=== PATIENT | female | born 1945 | race Caucasian/White ===

== ENCOUNTER 2017-01-11 23:41 | Emergency (ER) | payer MEDICARE, OTHER ==
[2017-01-12] MEDS ORDERED: Acetaminophen/HYDROcodone 325-5 MG Tab PO ONE
[2017-01-12] MEDS ORDERED: Take Home: Nitrofurantoin Monohydrate/Macrocrystalline 100 MG, 2 Cap Pack PO ONE (00:22)
[2017-01-12] MEDS ORDERED: Take Home: Acetaminophen/HYDROcodone 325-5 MG, 5 Tab Pack PO ONE (00:22)
[2017-01-12 01:11] VITALS: BP 174/84
--- NOTE | 2017-01-12 08:20 | ER ---
Date of Service: 01/11/2017 SUBJECTIVE: Yael presents to the emergency room with complaints of low back pain. She states that she got a new mattress topper and has been using that and noticed that her back has been causing her some discomfort. She states the discomfort is located in her low lumbar region and radiates around to the lateral and anterior aspects of her abdomen. She denies any specific fall or injury that could have exacerbated a chronic injury. She states she is not experiencing any saddle anesthesia or incontinence. No paresthesia into the posterior aspects of her lower extremities. PAST MEDICAL HISTORY: She denies any chest pain, shortness of breath, dysuria, blood in her urine, fever or chills. 1. Hypertension. 2. Allergies. 3. Dyslipidemia. MEDICATIONS: 1. Lipitor. 2. Toprol-XL. 3. Loratadine. 4. Hydralazine. 5. Xopenex. 6. Flovent. 7. Calcium. 8. Enteric-coated aspirin. 9. Tylenol. ALLERGIES: 1. Pollen. 2. MSG. 3. Mold. 4. Eggs. 5. Zinc. 6. Sulfa. 7. Red dye. 8. Prednisone. 9. Penicillin. 10.Peanut. 11.Nickel. 12.Lisinopril. 13.Latex. 14.Diphenhydramine. 15.Codeine. 16.Beef containing products. 17.Aspirin. REVIEW OF SYSTEMS: Again, denies any fever chills. No dysuria. No pyuria. No hematuria. Denies any saddle anesthesia or incontinence. PHYSICAL EXAMINATION: General: This is a 71-year-old female patient, no acute distress. Vital Signs: Blood pressure is 174/84, pulse rate 54, temperature is 36.2, respiratory rate is 16, O2 saturations 98%. Skin: Warm, pink, and dry. HEENT. Head is normocephalic, atraumatic. Eyes, PERRLA. Extraocular movements are intact. Mouth, oral mucosa is moist. Lungs: Clear to auscultation. Back: She does have some point tenderness and muscle spasm to the lumbar region. There is no masses noted. There is no swelling or ecchymosis to the area. No erythema or rash noted. She does have severe increasing discomfort with flexion and extension of the lumbar spine as well as lateral bending and palpation of the area. LABORATORY DATA: CBC was obtained. She did have small occult blood and small leukocyte esterase. ASSESSMENT: 1. Urinary tract infection. 2. Probable mechanical back pain. PLAN: The patient was started on Macrobid 100 mg twice daily for 10 days. Also, did start her on [place] 5/325 with instructions to take 1 every 4 hours as needed for pain or 1 every 4 hours as needed for pain. All questions were answered. MWK: 01/12/2017 04:13:02 MODL: 01/12/2017 04:33:14 /[id number]
== END 2017-01-12 00:40 | disposition home or self-care (01) ==
LOC: VM.ED 23:41 → SUPCPDRO 23:41 → VM.ED 01-12 00:40
DX: N39.0 Urinary tract infection, site not specified (principal); I10 Essential (primary) hypertension; Z88.2 Allergy status to sulfonamides; Z91.09 Other allergy status, other than to drugs and biological substances; Z91.012 Allergy to eggs
CPT/HCPCS: 81002; 99283; A9270

== ENCOUNTER 2017-05-21 05:55 | Emergency (ER) | payer MEDICARE, OTHER ==
[2017-05-21 05:59] VITALS: BP 179/100
[2017-05-21] MEDS ORDERED: methylPREDNISolone Sodium Succinate 125 MG/2 ML SDV IM ONE (06:10)
[2017-05-21] MEDS ORDERED: hydrOXYzine HCl 50 MG/ML SDV IM ONE (06:11)
--- NOTE | 2017-05-21 23:47 | ER ---
Date of Service: 05/21/2017 SUBJECTIVE: Yael presents to the emergency room with complaints of tongue swelling. She states that she has a longstanding history of food allergies and sensitivity and is a frequent utilizer of the emergency room when she developed angioedema. The patient is allergic to a lot of food diet and she did start the new medication she thinks that possibly there was a new dye in the capsule of the medication that caused the reaction. The patient states that she noticed some discomfort, swelling, and paresthesia to the left side of her tongue and lip. She is not experiencing any significant shortness of breath or lightheadedness. PAST MEDICAL HISTORY: 1. 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 2. Asthma. 3. GERD. 4. Chronic kidney disease. 5. Mitral regurgitation. 6. Dyslipidemia. 7. Coronary artery disease. 8. Severe hearing loss. 9. Vitamin B12 deficiency. 10.Iron deficiency anemia. 11.B12 deficiency. 12.Impaired fasting blood glucose. 13.Essential tremor. ALLERGIES: 1. Pollen. 2. MSG. 3. Mold. 4. Eggs. 5. Zinc. 6. Sulfa. 7. Red dye. 8. Penicillin. 9. Peanut. 10.Nickel. 11.Lisinopril. 12.Latex. 13.Diphenhydramine. 14.Aspirin. 15.Beef containing products. She also states that when she takes prednisone, she gets "excitable" but this of course is a side effect of the medication. MEDICATIONS: Please see nurse's note. REVIEW OF SYSTEMS: Denies any sore throat, fever, chills, weakness, lightheadedness, chest pain, or shortness of breath. PHYSICAL EXAMINATION: General: This is a 71-year-old female patient, who is in no acute distress. Vital Signs: Blood pressure initially 179/100, was rechecked and was found to be 168/70, pulse rate 73, respiratory rate 20, O2 saturations 97%. Skin: Warm, pink, and dry. HEENT: Head is normocephalic, atraumatic. Mouth; oral mucosa is moist. She does have some mild erythema and some edema to the lateral aspect of her left side of her tongue. She also does have some mild swelling to her lip as well. It is fairly superficial and consistent with previous episode of angioedema she has had in the past. No significant swelling to the hypopharynx. No stridor noted. Lungs: Clear to auscultation. No wheezing. Heart: Regular rate and rhythm. Abdomen: Soft, nontender. There is no hepatosplenomegaly noted. There is no masses noted. Extremities: Without edema. Neurologic: The patient is alert, oriented, answers all questions appropriately, is very hard of hearing, but is able to communicate without difficulty. EMERGENCY ROOM COURSE: The patient was given injection of Vistaril 50 mg IM and Solu-Medrol 125 mg IM. She did report feeling somewhat better at time of discharge. ASSESSMENT: Acute angioedema. PLAN: The patient will be discharged. She was given a Medrol Dosepak as this has been her long-standing regimen that has worked for her. We will have her follow up in the clinic in the next 7-10 days sooner if she develops any shortness of breath, chest pain, or other worrisome signs or symptoms. All questions were answered. MWK: 05/21/2017 22:57:12 MODL: 05/21/2017 23:37:15 /[id number]
== END 2017-05-21 06:44 | disposition home or self-care (01) ==
LOC: VM.ED 05:55
DX: T78.3XXA Angioneurotic edema, initial encounter (principal); J45.909 Unspecified asthma, uncomplicated; K21.9 Gastro-esophageal reflux disease without esophagitis; N18.9 Chronic kidney disease, unspecified; E78.5 Hyperlipidemia, unspecified; I25.10 Atherosclerotic heart disease of native coronary artery without angina pectoris; Z91.018 Allergy to other foods; Z91.012 Allergy to eggs; Z91.010 Allergy to peanuts; Z91.041 Radiographic dye allergy status; Z88.0 Allergy status to penicillin; Z88.2 Allergy status to sulfonamides; Z88.8 Allergy status to other drugs, medicaments and biological substances
CPT/HCPCS: 82962; 96372; 99283; J2930; J3410

== ENCOUNTER 2017-10-18 07:34 | Observation (INO) | payer MEDICARE, OTHER ==
[2017-10-18] MEDS ORDERED: Sodium Chloride 0.9% 10 ML Syringe FLUSH PRN (07:48)
[2017-10-18 09:01] LABS: CHLORIDE,CL 105 mmol/L (98-107); SODIUM,NA 143 mmol/L (136-145)
[2017-10-18] MEDS ORDERED: IRON 65 MG PO SCH (13:30)
[2017-10-18] MEDS ORDERED: FLU Vacc TS 2017-18 (65yr UP)/PF 180 MCG/0.5 ML Syringe IM ONE (14:00)
[2017-10-18] MEDS ORDERED: Loratadine 10 MG Tab PO PRN (14:00)
[2017-10-18] MEDS ORDERED: Albuterol 8 GM Inhaler INH PRN (14:16)
[2017-10-18] MEDS: Acetaminophen/HYDROcodone 325-5 MG Tab PO PRN ×2 (14:24→20:25)
[2017-10-18] MEDS: Nitrofurantoin Monohydrate/Macrocrystalline 100 MG Cap PO SCH ×2 (14:24→20:35)
[2017-10-18] MEDS: Miconazole 2% Top Powder 45 GM Container TOP SCH ×2 (14:24→20:41)
[2017-10-18] MEDS ORDERED: LEVALBUTEROL INH PRN (18:30)
[2017-10-18] MEDS: FLUTICASONE INH SCH (20:00)
[2017-10-18] MEDS: VILANTEROL INH SCH (20:00)
[2017-10-18] MEDS ORDERED: Formoterol/Mometasone 100-5 MCG 8.8 GM Inhaler IH SCH (20:00)
[2017-10-18] MEDS: atorvaSTATin 10 MG Tab PO SCH (20:00)
[2017-10-18] MEDS: ClonazePAM 0.5 MG Tab PO PRN (20:36)
[2017-10-18] MEDS: hydrALAZINE 10 MG Tab PO SCH (20:36)
[2017-10-18] MEDS: Metoprolol Tartrate 50 MG Tab PO SCH (20:38)
[2017-10-18] MEDS: Famotidine 20 MG Tab PO SCH (20:40)
--- NOTE | 2017-10-19 01:27 | HP ---
CHIEF COMPLAINT: Not able to walk and back pain. HISTORY OF PRESENT ILLNESS: This is a 72-year-old female. She was in the clinic on Thursday, the with numerous complaints tremor, sore throat, multiple somatic complaints, headache, body aches, back pain, chest pain, poor balance. Her exam and lab were largely unchanged per her primary care provider, Dr. Anthony Eng. Troponin was negative. Flu testing was negative. CT of the abdomen showed only a hiatal hernia. No kidney stones. She did have some mild hematuria, but no dysuria. Then today she had an incontinent episode of urine. She has burning. She came into the emergency room and was found to have a UTI with 20 to 30 wbc's. She states that Thursday she walked in, but this morning she was having several tremor episodes, but her daughter did not feel like they were seizures even though she was at home during these episodes she has witnessed them in the past. The patient states all her problems started on 08/27 when she went down to [place] and had an angiogram. She woke up while they were still finishing and getting the camera out of her groin and she is very claustrophobic, they had her keep down, so it sounds like she yelled some obscenities and they labeled her as a personality disorder, which has been very bothersome to her. Ever since that her back pain has been worse, but she has had back pain in the past and has had numerous ER visits. She actually saw Neurology last spring and they were not sure if this was Parkinson's, so she is supposed to follow up with them next spring. Otherwise, she is very claustrophobic, but is now scheduled for an MRI in [place]. She states her shaking started back 4 years ago when she had influenza, when she was given something through the IV and made her shaky which was Solu-Medrol, but the shakiness never went away. She does take hydrocodone for pain. She has taken Valium for panic attacks, but currently Klonopin is on her list. Otherwise, she has rash in both groin folds. She believes she is using some steroids on it. She also has a rash under her breast. She has nystatin on her home med list. In the ER, she was up to the commode with the assistance of the nurse. It was just felt that she was not safe to return home, although she does live with her daughter, but tells me she could not live independently. ALLERGIES: Include penicillin, codeine, latex, nuts, nystatin, albuterol. It should be be marked that penicillin was itching. Albuterol causes a tremor, Benadryl headaches, Flonase nosebleeds, lisinopril edema, nickel contact dermatitis, prednisone makes her very angry, sulfur unspecified, Tylenol edema, zinc allergy attack and hives. PAST SOCIAL HISTORY: Includes she has been and . 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 She had 7 children. She currently lives with her daughter. She is a nonsmoker. FAMILY HISTORY: Her mother is from cataracts and had cancer. Father had a heart attack. Brother with heart disease. Sister with what sounds like aortic dissection. Son with Parkinson's and diabetes. The daughter does not appear to have any chronic medical conditions, but does have some tendinitis. SURGICAL HISTORY: Surgically, she has had a coronary artery bypass surgery. She has had tubal ligation, exploratory laparotomy, colonoscopy, appendectomy. PAST MEDICAL HISTORY: Angioedema, recurrent, but tells me her allergies have been better. Chronic cough with reactive airway disease and asthma, GERD, coronary artery disease, CABG 10 years ago, iron deficiency anemia, chronic anxiety, essential hypertension, B12 deficiency, osteopenia, prediabetes, chronic renal insufficiency, mitral regurgitation, tremors Parkinson's versus essential tremor but also some rigidity and bradykinesia from the sound of things, hyperlipidemia, personality disorder, firm mixed belief per primary care, chronic fatigue, and bilateral carotid artery stenosis. Recent angiogram on 08/27/2017 shows about 65% on the left and 60% on the right. REVIEW OF SYSTEMS: General: Her weight over the past year appears to have been stable to maybe even up 7 pounds. HEENT: Otherwise, her HEENT no sore throat. Cardiac: No new chest pain. Her EKG was reviewed and was stable from her EKG in August. Respiratory: No new cough. No shortness of breath. : She has had dysuria. GI: She has had abdominal pain. Musculoskeletal: She has had back pain. Otherwise, all systems are reviewed and found to be negative unless otherwise stated. PHYSICAL EXAMINATION: Vital signs: Include a temperature of 98.3, pulse 70, blood pressure 152/72, respiratory rate 90, O2 95% on room air. Weight 84.8 kg. General: She is in no acute distress. Heart: Regular rate and rhythm. S1, S2 without murmur. Lungs: Sounds are clear to auscultation bilaterally without crackles or wheezes. Abdomen: Has positive bowel sounds. Soft and nontender. Extremities: Warm and dry, but trace edema to both ankles. Mental status: She is alert she is orientated x3. She recognizes me right away. Neurologic: She has resting tremor and intention tremor noted on exam. When she tries to move her arms, the tremor remains. It seems to be worse on the right hand. She has some bradykinesia with movements. Psychiatric: She did feel need to go over her story with all her past history, but I do feel it was appropriate to her current situation. When it was inappropriate when she talked about the personality disorder I did remind her and she seemed to be easily redirected. She did not say anything bad about her current providers in [place], but she express some dissatisfaction with Dr. Romo in [place] just because of how she has felt since the angiogram and then she tried to talk to his office and they would not let her. Otherwise, her skin folds were examined, and there is red area in both groins with some white film, but she has placed some powder in that area. Otherwise, she did have some redness underneath the breast, especially the right breast as well. She did have a scraping done by Dermatology on 10/01 which was actually negative for yeast that is why she was on the steroid. LABORATORY DATA: Otherwise, lab works today shows her to have a normal white count of 7.3, hemoglobin 11.9, compared to yesterday's hemoglobin, it was 11.7, she had platelets of 345. INR 1. Sodium 143, potassium 4.1, chloride 105, bicarb 29, BUN 18, creatinine 1.2, glucose 100, lactic 0.7, calcium 8.5, magnesium 1.9, bilirubin 0.4, AST 19, ALT 29, alkaline phosphatase 117. Troponin negative. CRP 0.5, BNP 393, albumin 3.3. UA; 20 to 30 wbc's, no rbc's, moderate leukocyte esterase. She does have an IV in place, but has not received any IV fluids. Her EF was 65% back in 05/2017. ASSESSMENT AND PLAN: 1. Acute UTI with dysuria, leukocytosis, and low back pain. We will start the patient on Macrobid as she has multiple other allergies twice daily for at least 5 days. 2. Impairment of gait with tremor, possibly underlying Parkinson's. At this point, she is not moving around enough to go home. Therefore, she is placed on observation and will have a PT assessment. 3. History of coronary artery disease, but no history of heart failure. At this point, though she is eating and drinking okay she is about to try lunch, I am going to hold off on any IV fluids. 4. Prediabetes. Blood sugar was acceptable. We will start Accu-Cheks if needed. 5. Groin irritation. I looked at the site of her angiogram that looks okay, even though she was negative for yeast a couple weeks ago certainly she could have some issues with that now. We will get her in the tub, clean her up and try some just a small amount of Desenex powder. 6. History of asthma. We will monitor for any exacerbations and keep her home medications and inhalers the same. 7. Hiatal hernia, chronic. Her abdominal CT otherwise did not show anything else yesterday. 8. Carotid artery stenosis, moderate, but stable. 9. Essential hypertension, under fair control. We will continue to monitor. The plan at this point, we will admit her to observation status. We will continue her home medications. We will get her up and moving and get PT to see her. Hopefully, she can go home with family in a couple of days. Otherwise, look at a self-pay swing or even residential, which she is not interested in, as she cannot afford it. She is a code level 1. Given observation stay and the fact she might be able to go home in 24 hours, I am going to hold off on DVT prophylaxis, but I will certainly order it if she remains under care here. NEETUA: 10/18/2017 13:23:15 MODL: 10/19/2017 01:07:53 /[id number]
--- NOTE | 2017-10-19 02:42 | EDM.PDOC ---
ED HPI GENERAL MEDICAL PROBLEM - General Chief Complaint: General Stated Complaint: ER VISIT Time Seen by Provider: 10/18/17 07:48 Source of Information: Reports: Patient History Limitations: Reports: No Limitations - History of Present Illness INITIAL COMMENTS - FREE TEXT/NARRATIVE: Pt. presents to ER with numerous complaints. Her primary complaint is that of weakness and tremor. Pt. has a presumptive diagnosis if Parkinson's disease and is scheduled to see neurology. She is also scheduled for an MRI. Pt. and had a prominent tremor for several years. Pt. states that she has difficulty with standing and walking, and had been unable to get up to the bathroom. Pt. denies any fever or chills. She states that she has pain to her L posteriolateral lower rib area which has been present since she underwent an angiogram in Aug. Pt. states that the discomfort was due to rough handling she endured while being positioned for the angiogram. Pt. also states that she is experiencing some dysuria. She states she had a negative UA several days ago. She also complains of fatigue, body aches and imbalance. Pt. states that she fell into a "soft chair" that she aimed for when she states she felt imbalance. Onset Date: 10/18/17 Duration: Chronic Location: Reports: Generalized Middle Back Pain Score (Numeric/FACES): 8 - Related Data Allergies Allergy/AdvReac Type Severity Reaction Status Date / Time aspirin Allergy Cannot Verified 10/18/17 07:58 Remember Beef Containing Products Allergy Cannot Verified 10/18/17 07:58 Remember codeine Allergy Hallucinati Verified 10/18/17 07:58 ons diphenhydramine HCl Allergy Cannot Verified 10/18/17 07:58 [From Benadryl] Remember Latex, Natural Rubber Allergy Rash Verified 10/18/17 07:58 lisinopril Allergy Edema Verified 10/18/17 07:58 nickel [Nickel] Allergy Rash Verified 10/18/17 07:58 peanut Allergy Cannot Verified 10/18/17 07:58 Remember Penicillins Allergy Cannot Verified 10/18/17 07:58 Remember prednisone Allergy Excitabilit Verified 10/18/17 07:58 y red dye Allergy Cannot Verified 10/18/17 07:58 Remember Sulfa (Sulfonamide Allergy Cannot Verified 10/18/17 07:58 Antibiotics) Remember zinc Allergy Hives Verified 10/18/17 07:58 molds Allergy Cannot Uncoded 12/31/17 07:58 Remember MSG Allergy Cannot Uncoded 10/18/17 07:58 Remember pollen Allergy Cannot Uncoded 10/18/17 07:58 Remember Home Meds: Home Meds Metoprolol Succinate [Toprol XL] 50 mg PO BID 10/15/13 [History] atorvaSTATin [Lipitor] 10 mg PO BEDTIME 10/15/13 [History] Aspirin [Aspirin EC] 325 mg PO DAILY 10/17/13 [History] Iron 65 mg PO Q48H 10/17/13 [History] Levalbuterol Tartrate [Xopenex HFA] 2 puff INH Q4H PRN 10/17/13 [History] Loratadine [Loratadine Allergy] 10 mg PO DAILY PRN 10/17/13 [History] Acetaminophen/HYDROcodone [Garrison 325-5 MG] 1 tab PO Q4H PRN 10/18/17 [History] ClonazePAM [KlonoPIN] 0.25 mg PO BID PRN 10/18/17 [History] Fluticasone/Vilanterol [Breo Ellipta 100-25 MCG Inhalation Kit] 1 puff IH DAILY PRN 10/18/17 [History] Non-Formulary Medication [NF Drug] 1 applic TOP BID 10/18/17 [History] Nystatin [Nystatin Crm] 1 applic TOP BID 10/18/17 [History] Ranitidine HCl [Zantac 75] 75 mg PO BEDTIME 10/18/17 [History] hydrALAZINE [Apresoline] 10 mg PO DAILY 10/18/17 [History] hydrALAZINE [Apresoline] 15 mg PO BEDTIME 10/18/17 [History] traMADol [Ultram] 50 mg PO BEDTIME PRN 10/18/17 [History] Past Medical History HEENT History: Reports: Cataract, Other (See Below) Other HEENT History: myopia. presbyopia. hearing loss Cardiovascular History: Reports: CAD, High Cholesterol, Hypertension, [place], Other (See Below) Other Cardiovascular History: angioedema. mitral regurgitation Respiratory History: Reports: Asthma, Other (See Below) Other Respiratory History: RAD Gastrointestinal History: Reports: GERD Genitourinary History: Reports: Other (See Below) Other Genitourinary History: chronic renal insufficiency TANK BOTT[employer]SEM[employer]ER History: Reports: Musculoskeletal History: Reports: Other (See Below) Other Musculoskeletal History: colposcopy with endo curette. tremor. osteopenia Neurological History: Reports: Parkinson's, Other (See Below) Other Neuro History: tremors. relates dx with parkinsons on 10/16 Psychiatric History: Reports: Anxiety, Other (See Below) Other Psychiatric History: personality disorder Endocrine/Metabolic History: Reports: Vitamin D Deficiency, Other (See Below) Other Endocrine/Metabolic History: B12 deficiency. prediabetes Hematologic History: Reports: Anemia, B12 Deficiency, Iron Deficiency - Past Surgical History Cardiovascular Surgical History: Reports: Coronary Artery Bypass GI Surgical History: Reports: Appendectomy, Colonoscopy Female Surgical History: Reports: Tubal Ligation Social & Family History - Family History Family Medical History: Noncontributory - Tobacco Use Smoking Status *Q: Never Smoker Used Tobacco, but Quit: No Second Hand Smoke Exposure: No - Recreational Drug Use Recreational Drug Use: No ED ROS GENERAL - Review of Systems Review Of Systems: See Below Constitutional: Reports: Fever, Chills, Malaise, Weakness HEENT: Reports: No Symptoms Respiratory: Reports: No Symptoms Cardiovascular: Reports: No Symptoms Endocrine: Reports: No Symptoms GI/Abdominal: Reports: No Symptoms : Reports: Dysuria Musculoskeletal: Reports: Back Pain, Muscle Stiffness Skin: Reports: No Symptoms Neurological: Reports: Tremors, Weakness Psychiatric: Reports: No Symptoms Hematologic/Lymphatic: Reports: No Symptoms Immunologic: Reports: No Symptoms ED EXAM, GENERAL - Physical Exam Exam: See Below Exam Limited By: No Limitations General Appearance: Alert, WD/WN, No Apparent Distress Ears: Normal External Exam, Normal Canal, Hearing Grossly Normal, Normal TMs Throat/Mouth: Normal Inspection, Normal Lips, Normal Teeth, Normal Gums, Normal Oropharynx, Normal Voice, No Airway Compromise Head: Atraumatic, Normocephalic Neck: Normal Inspection, Supple, Non-Tender, Full Range of Motion Respiratory/Chest: No Respiratory Distress, Lungs Clear, Normal Breath Sounds, No Accessory Muscle Use, Chest Non-Tender Cardiovascular: Normal Peripheral Pulses, Regular Rate, Rhythm, No Edema, No Gallop, No JVD, No Murmur, No Rub Peripheral Pulses: 3+: Radial (L), Radial (R) GI/Abdominal: Normal Bowel Sounds, Soft, Non-Tender, No Organomegaly, No Distention (Female) Exam: Deferred Rectal (Female) Exam: Deferred Back Exam: Normal Inspection. No: CVA Tenderness (R) Extremities: Normal Inspection, Non-Tender, No Pedal Edema, Normal Capillary Refill Neurological: Alert, Oriented, CN II-XII Intact, Normal Cognition, Normal Gait, Normal Reflexes, No Motor/Sensory Deficits Psychiatric: Normal Affect, Normal Mood Skin Exam: Warm, Dry, Pallor Lymphatic: No Adenopathy EKG INTERPRETATION Rhythm: NSR Course - Vital Signs Last Recorded V/S: Last Vital Signs Temp 36.2 C 10/19/17 01:47 Pulse 56 L 10/19/17 01:47 Resp 19 10/19/17 01:47 BP 159/77 H 10/19/17 01:47 Pulse Ox 95 10/19/17 01:47 - Orders/Labs/Meds Orders: Active Orders 24 hr Category Date Time Status Patient Status [ADT] Routine ADT 10/18/17 11:21 Active EKG Documentation Completion [RC] STAT Care 10/18/17 07:48 Ordered Chest 1V Frontal [CR] Stat Exams 10/18/17 08:05 Taken CULTURE BLOOD [BC] Stat Lab 10/18/17 08:12 Received CULTURE BLOOD [BC] Stat Lab 10/18/17 08:24 Received Sodium Chloride 0.9% [Saline Flush] Med 10/18/17 07:48 Active 10 ml FLUSH ASDIRECTED PRN Blood Culture x2 Reflex Set [OM.PC] Stat Oth 10/18/17 07:49 Ordered Peripheral IV Insertion Adult [OM.PC] Routine Oth 10/18/17 07:49 Ordered Medication Orders Hydrocodone Bitart/Acetaminophen (Garrison 325-5 Mg) 1 tab PO Q4H PRN PRN Reason: Pain Last Admin: 10/18/17 20:25 Dose: 1 tab Admin: 10/18/17 14:24 Dose: 1 tab Aspirin (Ecotrin) 325 mg PO DAILY FADUMO Atorvastatin Calcium (Lipitor) 10 mg PO BEDTIME FADUMO Last Admin: 10/18/17 20:00 Dose: 10 mg Clonazepam (Klonopin) 0.25 mg PO BID PRN PRN Reason: Anxiety Last Admin: 10/18/17 20:36 Dose: 0.25 mg Famotidine (Pepcid) 10 mg PO BEDTIME FADUMO Last Admin: 10/18/17 20:40 Dose: 10 mg Hydralazine HCl (Apresoline) 10 mg PO DAILY [facility] Hydralazine HCl (Apresoline) 15 mg PO BEDTIME [facility] Last Admin: 10/18/17 20:36 Dose: 15 mg Loratadine (Claritin) 10 mg PO DAILY PRN PRN Reason: ALLERGIES Metoprolol Tartrate (Lopressor) 50 mg PO BID [facility] Last Admin: 10/18/17 20:38 Dose: 50 mg Miconazole (Desenex 2%) 0 gm TOP BID [facility] Last Admin: 10/18/17 20:41 Dose: 1 applic Admin: 10/18/17 14:24 Dose: 1 applic Nitrofurantoin Macrocrystals (Macrobid) 100 mg PO BID [facility] Last Admin: 10/18/17 20:35 Dose: 100 mg Admin: 10/18/17 14:24 Dose: 100 mg Levalbuterol ( Xopenex) Hfa Aer Own Med 0 each INH Q4H PRN PRN Reason: Shortness of Breath Fluticasone/Vilanterol (Breo Ellipta) 100 Mcg/25 Mcg Own Med 0 each INH DAILY [facility] Last Admin: 10/18/17 20:00 Dose: Not Given Sodium Chloride (Saline Flush) 10 ml FLUSH ASDIRECTED PRN PRN Reason: Keep Vein Open Labs: Laboratory Tests 10/18/17 10/18/17 10/18/17 Range/Units 08:12 08:12 08:12 WBC 7.3 (4.0-10.0) x10^3/uL RBC 4.31 (4.00-5.50) x10^6/uL Hgb 11.9 L (12.0-16.0) g/dL Hct 38.8 (33.0-47.0) % MCV 90.0 (78.0-93.0) fL MCH 27.6 (26.0-32.0) pg MCHC 30.7 L (32.0-36.0) g/dL RDW Coeff of Patrick 16.4 H (10.0-15.0) % Plt Count 345 (130-400) x10^3/uL Neut % (Auto) 81.7 H (50.0-80.0) % Lymph % (Auto) 11.3 L (25.0-50.0) % [place] % (Auto) 5.8 (2.0-11.0) % Eos % (Auto) 0.8 (0.0-4.0) % Baso % (Auto) 0.4 (0.2-1.2) % PT 10.4 (9.8-11.8) SEC INR 1.0 L (2.0-3.5) Sodium 143 (136-145) mmol/L Potassium 4.1 (3.5-5.1) mmol/L Chloride 105 (98-107) mmol/L Carbon Dioxide 29 (21-32) mmol/L BUN 18 (7-18) mg/dL Creatinine 1.2 H (0.55-1.02) mg/dL Est Cr Clr Drug Dosing 34.02 mL/min Estimated GFR (MDRD) 44 Glucose 100 (74-106) mg/dL Lactic Acid (0.4-2.0) mmol/L Calcium 8.5 (8.5-10.1) mg/dL Corrected Calcium 9.06 (8.5-10.1) mg/dL Magnesium 1.9 (1.8-2.4) mg/dL Total Bilirubin 0.4 (0.2-1.0) mg/dL AST 19 (15-37) U/L ALT 29 (14-59) U/L Alkaline Phosphatase 117 H (46-116) U/L Troponin I < 0.017 (<=0.056) ng/mL C-Reactive Protein 0.5 (<=0.9) mg/dL NT-Pro-B Natriuret Pep 393 H (<=125) pg/mL Total Protein 7.2 (6.4-8.2) g/dL Albumin 3.3 L (3.4-5.0) g/dL Globulin 3.9 Albumin/Globulin Ratio 0.85 TSH, Ultra Sensitive 1.683 (0.358-3.74) uIU/mL Urine Color (YELLOW) Urine Appearance (CLEAR) Urine pH (5.0-8.0) Ur Specific [place] Urine Protein (NEGATIVE) mg/dL Urine Glucose (UA) (NEGATIVE) mg/dL Urine Ketones (NEGATIVE) mg/dL Urine Occult Blood (NEGATIVE) Urine Nitrite (NEGATIVE) Urine Bilirubin (NEGATIVE) Urine Urobilinogen (0.2) EU/dL Ur Leukocyte Esterase (NEGATIVE) Urine RBC (NOT SEEN) /HPF Urine WBC (NOT SEEN) /HPF Ur Squamous Epith Cells (NEGATIVE) /HPF Urine Bacteria (NEGATIVE) /HPF Urine Mucus (NEGATIVE) /LPF 10/18/17 10/18/17 Range/Units 08:12 09:25 WBC (4.0-10.0) x10^3/uL RBC (4.00-5.50) x10^6/uL Hgb (12.0-16.0) g/dL Hct (33.0-47.0) % MCV (78.0-93.0) fL MCH (26.0-32.0) pg MCHC (32.0-36.0) g/dL RDW Coeff of Patrick (10.0-15.0) % Plt Count (130-400) x10^3/uL Neut % (Auto) (50.0-80.0) % Lymph % (Auto) (25.0-50.0) % [place] % (Auto) (2.0-11.0) % Eos % (Auto) (0.0-4.0) % Baso % (Auto) (0.2-1.2) % PT (9.8-11.8) SEC INR (2.0-3.5) Sodium (136-145) mmol/L Potassium (3.5-5.1) mmol/L Chloride (98-107) mmol/L Carbon Dioxide (21-32) mmol/L BUN (7-18) mg/dL Creatinine (0.55-1.02) mg/dL Est Cr Clr Drug Dosing mL/min Estimated GFR (MDRD) Glucose (74-106) mg/dL Lactic Acid 0.7 (0.4-2.0) mmol/L Calcium (8.5-10.1) mg/dL Corrected Calcium (8.5-10.1) mg/dL Magnesium (1.8-2.4) mg/dL Total Bilirubin (0.2-1.0) mg/dL AST (15-37) U/L ALT (14-59) U/L Alkaline Phosphatase (46-116) U/L Troponin I (<=0.056) ng/mL C-Reactive Protein (<=0.9) mg/dL NT-Pro-B Natriuret Pep (<=125) pg/mL Total Protein (6.4-8.2) g/dL Albumin (3.4-5.0) g/dL Globulin Albumin/Globulin Ratio TSH, Ultra Sensitive (0.358-3.74) uIU/mL Urine Color Yellow (YELLOW) Urine Appearance Cloudy H (CLEAR) Urine pH 6.0 (5.0-8.0) Ur Specific [place] 1.020 Urine Protein 30 H (NEGATIVE) mg/dL Urine Glucose (UA) Negative (NEGATIVE) mg/dL Urine Ketones Negative (NEGATIVE) mg/dL Urine Occult Blood Moderate H (NEGATIVE) Urine Nitrite Negative (NEGATIVE) Urine Bilirubin Negative (NEGATIVE) Urine Urobilinogen 0.2 (0.2) EU/dL Ur Leukocyte Esterase Moderate H (NEGATIVE) Urine RBC 0-5 (NOT SEEN) /HPF Urine WBC 20-30 H (NOT SEEN) /HPF Ur Squamous Epith Cells Many H (NEGATIVE) /HPF Urine Bacteria Few H (NEGATIVE) /HPF Urine Mucus Not seen (NEGATIVE) /LPF Meds: Medications Generic Name Dose Route Start Last Admin Trade Name Freq PRN Reason Stop Dose Admin Hydrocodone Bitart/Acetaminophen 1 tab 10/18/17 13:22 10/18/17 20:25 Garrison 325-5 Mg PO 1 tab Q4H PRN Administration Pain Aspirin 325 mg 10/19/17 08:00 Ecotrin PO DAILY FADUMO Atorvastatin Calcium 10 mg 10/18/17 20:00 10/18/17 20:00 Lipitor PO 10 mg BEDTIME FADUMO Administration Clonazepam 0.25 mg 10/18/17 13:22 10/18/17 20:36 Klonopin PO 0.25 mg BID PRN Administration Anxiety Famotidine 10 mg 10/18/17 20:00 10/18/17 20:40 Pepcid PO 10 mg BEDTIME FADUMO Administration Hydralazine HCl 10 mg 10/19/17 08:00 Apresoline PO DAILY FADUMO Hydralazine HCl 15 mg 10/18/17 20:00 10/18/17 20:36 Apresoline PO 15 mg BEDTIME FADUMO Administration Loratadine 10 mg 10/18/17 14:00 Claritin PO DAILY PRN ALLERGIES Metoprolol Tartrate 50 mg 10/18/17 20:00 10/18/17 20:38 Lopressor PO 50 mg BID FADUMO Administration Miconazole 0 gm 10/18/17 12:30 10/18/17 20:41 Desenex 2% TOP 1 applic BID FADUMO Administration Nitrofurantoin Macrocrystals 100 mg 10/18/17 12:30 10/18/17 20:35 Macrobid PO 100 mg BID FADUMO Administration Levalbuterol ( 0 each 10/18/17 18:30 Xopenex) Hfa Aer INH Own Med Q4H PRN Shortness of Breath Fluticasone/ 0 each 10/18/17 20:15 10/18/17 20:00 Vilanterol (Breo INH Not Given Ellipta) 100 Mcg/25 DAILY FADUMO Mcg Own Med Sodium Chloride 10 ml 10/18/17 07:48 Saline Flush FLUSH ASDIRECTED PRN Keep Vein Open Discontinued Medications Generic Name Dose Route Start Last Admin Trade Name Freq PRN Reason Stop Dose Admin Albuterol 0 gm 10/18/17 14:16 Ventolin Hfa INH Q4H PRN Shortness of Breath Influenza Virus Vaccine 1 each 10/18/17 13:03 Pharmacy To Dose - Influenza Vaccine IM 10/18/17 13:04 ONETIME ONE Influenza Virus Vaccine 180 mcg 10/18/17 14:00 10/18/17 20:41 Fluzone High-Dose 2017-18 IM 10/18/17 14:01 Not Given .ONCE ONE Mometasone Furoate/Formoterol Fumar 2 puff 10/18/17 20:00 10/18/17 20:30 Dulera 100-5 Mcg IH Not Given BID [facility] Non-Formulary Medication 65 mg 10/18/17 13:30 10/18/17 15:39 Iron PO Not Given Q48H [facility] Departure - Departure Time of Disposition: 11:50 Disposition: Admitted As Inpatient 64 Clinical Impression: UTI (urinary tract infection) - Discharge Information - My Orders Last 24 Hours: My Active Orders 10/18/17 07:48 EKG Documentation Completion [RC] STAT Sodium Chloride 0.9% [Saline Flush] 10 ml FLUSH ASDIRECTED PRN 10/18/17 07:49 Blood Culture x2 Reflex Set [OM.PC] Stat Peripheral IV Insertion Adult [OM.PC] Routine 10/18/17 08:05 Chest 1V Frontal [CR] Stat 10/18/17 08:12 CULTURE BLOOD [BC] Stat 10/18/17 08:24 CULTURE BLOOD [BC] Stat 10/18/17 11:21 Patient Status [ADT] Routine - Assessment/Plan Last 24 Hours: My Active Orders 10/18/17 07:48 EKG Documentation Completion [RC] STAT Sodium Chloride 0.9% [Saline Flush] 10 ml FLUSH ASDIRECTED PRN 10/18/17 07:49 Blood Culture x2 Reflex Set [OM.PC] Stat Peripheral IV Insertion Adult [OM.PC] Routine 10/18/17 08:05 Chest 1V Frontal [CR] Stat 10/18/17 08:12 CULTURE BLOOD [BC] Stat 10/18/17 08:24 CULTURE BLOOD [BC] Stat 10/18/17 11:21 Patient Status [ADT] Routine
[2017-10-19] MEDS: Acetaminophen/HYDROcodone 325-5 MG Tab PO PRN ×4 (05:21→19:05)
[2017-10-19] MEDS: Metoprolol Tartrate 50 MG Tab PO SCH ×2 (07:45→19:06)
[2017-10-19] MEDS: hydrALAZINE 10 MG Tab PO SCH ×2 (07:45→19:04)
[2017-10-19] MEDS: Miconazole 2% Top Powder 45 GM Container TOP SCH ×2 (07:46→19:07)
[2017-10-19] MEDS: Aspirin 325 MG Tab.EC PO SCH (07:46)
[2017-10-19] MEDS: Nitrofurantoin Monohydrate/Macrocrystalline 100 MG Cap PO SCH ×2 (07:46→19:06)
[2017-10-19] MEDS: FLUTICASONE INH SCH (07:47)
[2017-10-19] MEDS: VILANTEROL INH SCH (07:47)
[2017-10-19] MEDS: ClonazePAM 0.5 MG Tab PO PRN ×2 (11:47→23:59)
--- NOTE | 2017-10-19 11:47 | PN ---
Progress Note for APRIL PUENTES Date: 10/19/2017 Room #: .205 HISTORY: This is hospital observation day #2 on a 72-year-old admitted with a UTI, likely has underlying Parkinson's. She has impaired gait. She did well with aids this morning, getting up, walking to the shower, but she states she is just not comfortable to go home. She has a cane but does not really know how to use it. She would like to see if she qualifies for some therapy. She has been on Macrobid, day #2. Urine culture is pending. She is still going frequently, but denies any dysuria. She also has back pain which is improved with hydrocodone. She has carried a history of swelling from Tylenol in the past. Please note, the patient was in on 08/30 for back pain, ever since her angiogram; then on 09/10, when she got hydrocodone; then again had a visit on 09/15 for dysuria, was treated with Cipro for 3 days, which did help and then her symptoms came back the day after stopping and then again on 09/17 for back pain. She does also have a hiatal hernia, which she would like a referral for as she can hardly eat anything and then her stomach bothers her. PHYSICAL EXAMINATION: Vital Signs: Otherwise, objectively today she is afebrile 98, pulse 57, blood pressure 150/68, respiratory rate 20, O2 100% on room air. General: She is in no acute distress. Heart: Regular rate and rhythm with murmur. Lungs: Sounds are clear to auscultation bilaterally without crackles or wheezes. Skin: She does continue to have a red area under the right breast into the right axillary area. There are no open sores. Overall, I feel her skin exam is improving. Extremities: Her feet are examined. There is just trace edema. There is no redness today noted to that left 3rd toe. We will do an Accu-Chek, done this morning was 109. The patient was feeling shaky. ASSESSMENT AND PLAN: 1. Generalized weakness in the setting of a urinary tract infection with likely underlying Parkinson's resulting in gait impairment. On observation status, day #2, on Macrobid. 2. Tremor and impaired gait. We will have PT assess her. She has a neurology followup in a couple weeks. 3. History of coronary artery disease, stable without chest pain. 4. Hiatal hernia. Patient is requesting a referral for possible surgery. 5. Pre-diabetes. We will do t.i.d. Accu-Cheks. 6. Groin and breast irritation, possibly yeast. She is doing well on Desenex. 7. History of asthma, stable without exacerbation. 8. Carotid artery stenosis, moderate and stable. 9. Essential hypertension with mildly elevated blood pressures. PLAN: At this point, patient will continue on observation. We will put support stockings in place for leg swelling. Discussed changing her hydrocodone with Tylenol to something else, but she prefers to stay with the same. Her pain is in her low back sacral area on palpation. I do not see any indication for x- rays. No lab work is due. criminal justice social worker will be involved tomorrow as well as PT and OT for assessments. The patient seems agreeable to that plan. She will continue under my care in the hospital. I will update her primary care, Dr. Anthony Eng. For DVT prophylaxis, she is up and ambulating. We have the support stockings now in place. MKA: 10/19/2017 09:22:19 MODL: 10/19/2017 11:45:52 /[id number]
[2017-10-19] MEDS: Carbidopa/Levodopa 10-100 MG Tab PO SCH ×2 (14:41→19:04)
[2017-10-19] MEDS: Famotidine 20 MG Tab PO SCH (19:05)
[2017-10-19] MEDS: atorvaSTATin 10 MG Tab PO SCH (19:06)
[2017-10-20] MEDS: Acetaminophen/HYDROcodone 325-5 MG Tab PO PRN (08:03)
[2017-10-20] MEDS: Nitrofurantoin Monohydrate/Macrocrystalline 100 MG Cap PO SCH (08:04)
[2017-10-20] MEDS: Metoprolol Tartrate 50 MG Tab PO SCH (08:05)
[2017-10-20] MEDS: hydrALAZINE 10 MG Tab PO SCH (08:06)
[2017-10-20] MEDS: Aspirin 325 MG Tab.EC PO SCH (08:06)
[2017-10-20] MEDS: Carbidopa/Levodopa 10-100 MG Tab PO SCH ×2 (08:07→11:58)
[2017-10-20] MEDS: Miconazole 2% Top Powder 45 GM Container TOP SCH (08:09)
[2017-10-20] MEDS: ClonazePAM 0.5 MG Tab PO PRN (08:25)
[2017-10-20] MEDS: FLUTICASONE INH SCH (08:27)
[2017-10-20] MEDS: VILANTEROL INH SCH (08:27)
[2017-10-20 14:31] VITALS: BP 136/56
--- NOTE | 2017-10-21 01:08 | DISCH ---
PRIMARY DISCHARGE DIAGNOSES: 1. Urinary tract infection; so far, culture showing no growth. Symptoms were dysuria and incontinence. 2. Generalized weakness in the setting of UTI and possibly underlying Parkinson's disease with gait impairment, working with PT near her baseline, but refusing to go home and requesting to stay for further therapy. 3. Tremor and impaired gait. Outpatient Neurology visit scheduled in a few weeks. 4. History of coronary artery disease, stable without chest pain. 5. Hiatal hernia. Referral placed to surgery regarding that. Symptoms include chest pain and fullness after eating. Prediabetes with well- controlled blood sugars on Accu-Cheks. The highest was 132. 6. Groin and breast irritation, improving with Desenex. 7. History of asthma, stable without exacerbation. 8. Moderate carotid artery stenosis, stable. Her symptoms started after her angiogram on 08/27/2017 with more back pain and feeling worse. 9. Right hip pain and low back pain. Pain is more in the buttock. I think this is related more to lumbar radiculopathy. She has had a CT scan of her low back over the last month through the ER. 10.Essential hypertension with mildly elevated blood pressures. REASON FOR ADMISSION: On the date of admission, this 72-year-old female came into the emergency room. She has been having problems with her bladder ever since she had an angiogram and they tried doing catheterization back in August. She was actually in the clinic Thursday and her test was negative for UTI. She did have a CT, which was negative for kidney stones. The CT did show her hiatal hernia, which has been giving her some chest discomfort on and off. Troponins were checked in the clinic and through the ER. All lab work was normal and stable. She did have 20 to 30 wbcs on her UA. She was started on Macrobid, which she is tolerating. She had received Cipro in the last month for a UTI as well, which did help her symptoms. Otherwise, she was up, she was working with therapy, she was making improvements transferring to the bathroom. Overall improving, but not feeling like she was stable for discharge. Therefore, Social Work did discuss with her as she did not have a qualifying stay as she was only on observation and she was willing to stay under self-pay swing. The patient was also bathed while she was here. Her daughter became quite angry and tearful when talking about seeing a Twist Tester because she said she does not want her to go in the senior living or assisted living, but the daughter does work 2 jobs, so was not available horse race timer to care for her. Otherwise, the patient herself was having some slight cough. Chest x-ray done on the was not showing any signs of pneumonia. She was not having any fevers. Overall, she had a stable stay, she was just receiving the oral Macrobid, she was initiated on Sinemet, which she had tried only once as an outpatient, but it gave her nightmares. PHYSICAL EXAMINATION: Vital Signs: Discharge vitals include a temperature 98, pulse 58, blood pressure 132/68, respiratory rate 16, and O2 98% on room air. General: She is in no acute distress. Heart: Regular rate and rhythm with murmur. Lungs: Sounds are clear to auscultation bilaterally without crackles or wheezes. Extremities: Warm and dry. No edema. Mental Status: She is alert and orientated x3. DISCHARGE PLANS AND INSTRUCTION: She is going over to swing bed. I am going to decrease her Accu-Cheks to just once daily. We will have her up and working with PT and OT. I anticipate that she will be stable for discharge by the end of the week to home with Home Health. Twist Tester will continue to be involved. VANIA: 10/20/2017 16:28:32 MODL: 10/21/2017 00:21:50 /[id number]
== END 2017-10-20 15:00 | disposition swing bed (61) ==
LOC: VM.ED 07:34 → VM.MS 11:32
PROVIDERS: ADMIT Internal Medicine; ATTEND Family Medicine
DX: N39.0 Urinary tract infection, site not specified (principal); R53.1 Weakness; R25.1 Tremor, unspecified; R26.9 Unspecified abnormalities of gait and mobility; K44.9 Diaphragmatic hernia without obstruction or gangrene; I65.29 Occlusion and stenosis of unspecified carotid artery; I10 Essential (primary) hypertension; Z86.79 Personal history of other diseases of the circulatory system; Z87.09 Personal history of other diseases of the respiratory system; Z88.0 Allergy status to penicillin; Z91.040 Latex allergy status; Z88.8 Allergy status to other drugs, medicaments and biological substances; Z95.1 Presence of aortocoronary bypass graft; Z98.51 Tubal ligation status; Z90.49 Acquired absence of other specified parts of digestive tract; Z91.010 Allergy to peanuts; Z91.041 Radiographic dye allergy status; Z88.2 Allergy status to sulfonamides; Z91.018 Allergy to other foods
CPT/HCPCS: 36415; 71010; 80053; 81001; 82962; 83605; 83735; 83880; 84443; 84484; 85025; 85610; 86140; 87040; 87086; 93005; 97116; 97165; 99285; A9270; G0378; 99283-GF

== ENCOUNTER 2017-10-20 15:10 | Inpatient (IN) | payer SELFPAY ==
[2017-10-20] MEDS ORDERED: Loratadine 10 MG Tab PO PRN (15:23)
[2017-10-20] MEDS ORDERED: LEVALBUTEROL INH PRN (15:23)
[2017-10-20] MEDS: HYDRALAZINE 10 MG PO SCH (20:39)
[2017-10-20] MEDS: Miconazole 2% Top Powder 45 GM Container TOP SCH (20:41)
[2017-10-20] MEDS: atorvaSTATin 10 MG Tab **OWN MED PO SCH (20:41)
[2017-10-20] MEDS: Metoprolol Tartrate 25 MG Tab **OWN MED PO SCH (20:42)
[2017-10-20] MEDS: Famotidine 20 MG Tab PO SCH (21:14)
[2017-10-20] MEDS: Nitrofurantoin Monohydrate/Macrocrystalline 100 MG Cap PO SCH (21:14)
[2017-10-20] MEDS: Acetaminophen/HYDROcodone 325-5 MG Tab **OWN MED PO PRN (21:16)
[2017-10-20] MEDS: ClonazePAM 0.5 MG Tab PO PRN (21:47)
[2017-10-20] MEDS ORDERED: FLU Vacc TS 2017-18 (65yr UP)/PF 180 MCG/0.5 ML Syringe IM ONE (22:30)
[2017-10-21] MEDS ORDERED: FLUTICASONE INH SCH (08:00)
[2017-10-21] MEDS ORDERED: VILANTEROL INH SCH (08:00)
[2017-10-21] MEDS: Nitrofurantoin Monohydrate/Macrocrystalline 100 MG Cap PO SCH ×2 (08:27→20:12)
[2017-10-21] MEDS: Aspirin 325 MG Tab.EC PO SCH (08:28)
[2017-10-21] MEDS: Metoprolol Tartrate 25 MG Tab **OWN MED PO SCH ×2 (08:28→20:12)
[2017-10-21] MEDS: HYDRALAZINE 10 MG PO SCH ×2 (08:29→20:10)
[2017-10-21] MEDS ORDERED: XOPENEX INH PRN (08:41)
[2017-10-21] MEDS ORDERED: CARBIDOPA PO SCH (12:00)
[2017-10-21] MEDS ORDERED: LEVODOPA PO SCH (12:00)
[2017-10-21] MEDS: Miconazole 2% Top Powder 45 GM Container TOP SCH ×2 (12:09→20:10)
[2017-10-21] MEDS: LEVODOPA PO SCH (17:59)
[2017-10-21] MEDS: CARBIDOPA PO SCH (17:59)
[2017-10-21] MEDS: atorvaSTATin 10 MG Tab **OWN MED PO SCH (20:11)
[2017-10-21] MEDS: Famotidine 20 MG Tab PO SCH (20:13)
[2017-10-21] MEDS: Acetaminophen/HYDROcodone 325-5 MG Tab **OWN MED PO PRN (20:14)
[2017-10-22] MEDS: Acetaminophen/HYDROcodone 325-5 MG Tab **OWN MED PO PRN (03:15)
[2017-10-22] MEDS: ClonazePAM 0.5 MG Tab PO PRN (03:16)
[2017-10-22 06:01] VITALS: BP 162/89
[2017-10-22] MEDS ORDERED: BREO ELLIPTA INH SCH (08:00)
[2017-10-22] MEDS: Aspirin 325 MG Tab.EC PO SCH (08:04)
[2017-10-22] MEDS: Nitrofurantoin Monohydrate/Macrocrystalline 100 MG Cap PO SCH (08:04)
[2017-10-22] MEDS: HYDRALAZINE 10 MG PO SCH (08:05)
[2017-10-22] MEDS: LEVODOPA PO SCH ×2 (08:05→12:21)
[2017-10-22] MEDS: CARBIDOPA PO SCH ×2 (08:05→12:21)
[2017-10-22] MEDS: Metoprolol Tartrate 25 MG Tab **OWN MED PO SCH (08:07)
[2017-10-22] MEDS: Miconazole 2% Top Powder 45 GM Container TOP SCH (08:10)
[2017-10-22] MEDS ORDERED: Magnesium Hydroxide 400 MG/5 ML Susp 30 ML Cup PO ONE (09:15)
--- NOTE | 2017-10-23 00:31 | DISCH ---
PRIMARY DISCHARGE DIAGNOSES: 1. Urinary tract infection. Final urine culture was mixed zana. She did complete 4-1/2 days of Macrobid while she was here. No antibiotics on discharge as she completed therapy and culture was negative. Blood culture was also negative. 2. Impaired gait, likely due to underlying Parkinson's, initiated on Sinemet tolerating 10 mg 3 times a day during her stay. 3. Right hip and back pain, probably some lumbar radiculopathy, but mild-to- moderate arthritis noted in the right hip on recent CT scan done outpatient to rule out kidney stones. 4. History of coronary artery disease, stable without chest pain, she has had bypass surgery many years ago. 5. Hiatal hernia. She has a referral placed to see the surgeon outpatient regarding this. 6. Prediabetes with well-controlled blood sugars, Accu-Cheks 132 or below during her stay. 7. Groin and breast irritation, improved with Desenex. 8. History of asthma, on inhalers, stable without exacerbation. 9. Moderate carotid artery stenosis, stable. 10.Essential hypertension with controlled blood pressures throughout her stay with occasional mild elevations. She continued on her home medications. REASON FOR ADMISSION: On the date of admission, this 72-year-old female who had been admitted from the emergency room for observation due to impaired mobility due to hip pain. She had been having problems since her angiogram for carotid arteries in August. She was in the clinic on Thursday, but did not have a UTI, she was actually incontinent of urine there, but when she came to the ER, she had 20 to 30 wbcs. She was started on Macrobid, which she was tolerating. She was up working with therapies. They had seen her outpatient. They felt she was near her baseline, but she did elect to stay on a self-pay swing bed for a couple of days to get some more mobility prior to going home. Prior to discharge, she was up, she was walking in the halls with her daughter. She was transferring herself from the bathroom back to her bed and overall was doing well. PHYSICAL EXAMINATION: Vital Signs: Discharge vitals include a weight of 86 kg, temp 97.6, pulse 70, blood pressure 162/89, respiratory rate 16, and O2 94% on room air. General: The patient also reported she had no bowel movements during her stay, but had not been eating much, but did eat up to 100% of some meals. She elected to try dose of milk of mag instead of a suppository and does have milk of mag at home. Abdomen: Soft with positive bowel sounds. Heart: Regular rate and rhythm without murmur. Lungs: Sounds were clear to auscultation bilaterally without crackles or wheezes. Extremities: Warm and dry. No edema. Mental Status: She is alert and orientated x3. DISCHARGE PLANS AND INSTRUCTIONS: The patient is going to follow up with Dr. Hogan in the clinic in 1 to 2 weeks for posthospital followup. She also has a Pain Clinic referral to Isacc Hebert and will see him on 10/29/2017. She was given hydrocodone to use for pain, which she has been taking at least 1 to 2 times a day and tolerating it even though she has had some "leg swelling" from Tylenol in the past. She also was receiving Klonopin usually 1 dose daily for anxiety and also felt a little bit that it helped as a muscle relaxant. She has done outpatient physical therapy, but will go home with Home Health and Home PT. A referral was also made to General Surgery, she will be seeing them in the end of October regarding the hiatal hernia, and she does have a followup upcoming with Neurology. On discharge, she will be increased to Sinemet 25/100 3 times a day. Instructions were given about taking it around mealtimes and protein. HOME HEALTH ADDENDUM: She was seen by myself on 10/22/2017. I will periodically review this plan of care. She requires Home Health for teaching and assessments and monitoring of new medications including Sinemet for Parkinson's as well as management of pain pills regarding back pain and physical therapy to assess and help with her mobility. She is homebound due to her impaired mobility and requires the assist of another to leave her home. MKA: 10/22/2017 13:22:21 MODL: 10/23/2017 00:14:52 /[id number]
== END 2017-10-22 13:40 | disposition home health service (06) | DRG 690 ==
LOC: VM.MS 15:12
PROVIDERS: ADMIT Internal Medicine; ATTEND Internal Medicine
DX: N39.0 Urinary tract infection, site not specified (principal); G20 Parkinson's disease; M54.16 Radiculopathy, lumbar region; M19.90 Unspecified osteoarthritis, unspecified site; I25.10 Atherosclerotic heart disease of native coronary artery without angina pectoris; Z95.1 Presence of aortocoronary bypass graft; I65.29 Occlusion and stenosis of unspecified carotid artery; K44.9 Diaphragmatic hernia without obstruction or gangrene; R73.03 Prediabetes; J45.909 Unspecified asthma, uncomplicated; I10 Essential (primary) hypertension; R53.1 Weakness; Z79.899 Other long term (current) drug therapy
CPT/HCPCS: 82962; 97116-GP; 97535-GO; A9270-GY

== ENCOUNTER 2018-01-08 10:19 | Emergency (ER) | payer MEDICARE, OTHER ==
--- NOTE | 2018-01-08 11:17 | EDM.PDOC ---
ED HPI GENERAL MEDICAL PROBLEM - General Chief Complaint: Upper Extremity Injury/Pain Stated Complaint: ER Time Seen by Provider: 01/08/18 10:30 Source of Information: Reports: Patient, EMS, EMS Notes Reviewed - History of Present Illness INITIAL COMMENTS - FREE TEXT/NARRATIVE: Pt was sent here from the clinic because she could not get into an appointment. Patient was experiencing in left shoulder discomfort. Patient has been seen in the clinic 2 times in the past week for water retention and right lower calf pain. She's had labs completed which were essentially negative along with an ultrasound. Results are still pending regarding the ultrasound. But the discomfort and swelling in the leg are no longer of concern. Patient did have an increase in her Lasix in the clinic setting to help with the swelling. She feels this is better. Patient woke up this morning with left arm/shoulder discomfort it hurts on palpation and hurts with range of motion. She denies any radiation but is unable to lift it up or to bear weight on it. Patient denies any fall or injury. Pt also complaints of a low blood sugar-64 on home monitor this am and feeling weak. Prior to arrival pt was given juice, fruit, and crackers. Onset: Today Quality: Reports: Ache, Throbbing Severity: Moderate Improves with: Reports: Heat Therapy, Immobilization Worsens with: Reports: Movement Context: Reports: Lifting Associated Symptoms: Reports: No Other Symptoms - Related Data Allergies Allergy/AdvReac Type Severity Reaction Status Date / Time aspirin Allergy Cannot Verified 01/08/18 11:20 Remember Beef Containing Products Allergy Cannot Verified 01/08/18 11:20 Remember Latex, Natural Rubber Allergy Rash Verified 01/08/18 11:20 lisinopril Allergy Edema Verified 01/08/18 11:20 nickel [Nickel] Allergy Rash Verified 01/08/18 11:20 peanut Allergy Cannot Verified 01/08/18 11:20 Remember Penicillins Allergy Itching Verified 01/08/18 11:20 red dye Allergy Cannot Verified 01/08/18 11:20 Remember Sulfa (Sulfonamide Allergy Cannot Verified 01/08/18 11:20 Antibiotics) Remember zinc Allergy Hives Verified 01/08/18 11:20 albuterol AdvReac Tremors Verified 01/08/18 11:20 codeine AdvReac Hallucinati Verified 01/08/18 11:20 ons diphenhydramine HCl AdvReac Headache Verified 01/08/18 11:20 [From Benadryl] prednisone AdvReac Excitabilit Verified 01/08/18 11:20 y molds Allergy Cannot Uncoded 01/08/18 11:20 Remember MSG Allergy Cannot Uncoded 01/08/18 11:20 Remember pollen Allergy Cannot Uncoded 01/08/18 11:20 Remember Home Meds: Home Meds atorvaSTATin [Lipitor] 10 mg PO BEDTIME 10/15/13 [History] Aspirin [Aspirin EC] 325 mg PO DAILY 10/17/13 [History] Iron 65 mg PO Q48H 10/17/13 [History] Levalbuterol Tartrate [Xopenex HFA] 2 puff INH Q4H PRN 10/17/13 [History] Loratadine [Loratadine Allergy] 10 mg PO DAILY PRN 10/17/13 [History] Acetaminophen/HYDROcodone [Fults 325-5 MG] 1 tab PO Q4H PRN 10/18/17 [History] ClonazePAM [KlonoPIN] 0.25 mg PO BID PRN 10/18/17 [History] Fluticasone/Vilanterol [Breo Ellipta 100-25 MCG Inhalation Kit] 1 puff IH DAILY PRN 10/18/17 [History] Non-Formulary Medication [NF Drug] 1 applic TOP BID 10/18/17 [History] Nystatin [Nystatin Crm] 1 applic TOP BID 10/18/17 [History] Ranitidine HCl [Zantac 75] 75 mg PO BEDTIME 10/18/17 [History] hydrALAZINE [Apresoline] 10 mg PO DAILY 10/18/17 [History] hydrALAZINE [Apresoline] 15 mg PO BEDTIME 10/18/17 [History] Metoprolol Tartrate [Lopressor] 50 mg PO BID 10/20/17 [History] Carbidopa/Levodopa [Carbidopa-Levodopa 25-100 Tab] 1 each PO TID #90 tablet 02/03 [Rx] Docusate Sodium [Colace] 100 mg PO DAILY #30 cap 10/22/17 [Rx] Past Medical History HEENT History: Reports: Cataract, Other (See Below) Other HEENT History: myopia. presbyopia. hearing loss Cardiovascular History: Reports: CAD, High Cholesterol, Hypertension, [place], Other (See Below) Other Cardiovascular History: angioedema. 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 tremor. osteopenia Neurological History: Reports: Parkinson's, Other (See Below) Other Neuro History: tremors. relates dx with parkinsons on 10/16 Psychiatric History: Reports: Anxiety, Other (See Below) Other Psychiatric History: personality disorder Endocrine/Metabolic History: Reports: Vitamin D Deficiency, Other (See Below) Other Endocrine/Metabolic History: B12 deficiency. prediabetes Hematologic History: Reports: Anemia, B12 Deficiency, Iron Deficiency - Past Surgical History Cardiovascular Surgical History: Reports: Coronary Artery Bypass GI Surgical History: Reports: Appendectomy, Colonoscopy Female Surgical History: Reports: Tubal Ligation Social & Family History - Family History Family Medical History: Noncontributory - Tobacco Use Smoking Status *Q: Never Smoker Used Tobacco, but Quit: No Second Hand Smoke Exposure: No - Recreational Drug Use Recreational Drug Use: No Review of Systems - Review of Systems Review Of Systems: See Below Constitutional: Reports: No Symptoms Eyes: Reports: No Symptoms Ears: Reports: No Symptoms Nose: Reports: No Symptoms Mouth/Throat: Reports: No Symptoms Respiratory: Reports: No Symptoms Cardiovascular: Reports: No Symptoms GI/Abdominal: Reports: No Symptoms Musculoskeletal: Reports: Arm Pain Skin: Reports: No Symptoms Neurological: Reports: No Symptoms Psychiatric: Reports: Anxiety ED EXAM, GENERAL - Physical Exam Exam: See Below Exam Limited By: No Limitations General Appearance: Alert, WD/WN, No Apparent Distress Respiratory/Chest: No Respiratory Distress, Lungs Clear, Normal Breath Sounds, No Accessory Muscle Use, Chest Non-Tender Cardiovascular: Normal Peripheral Pulses GI/Abdominal: Normal Bowel Sounds, Soft, Non-Tender, No Distention Extremities: Arm Pain (left shoulder. no bruising, redness, tenderness, or warmth), Limited Range of Motion (left shoulder- able to complete passive ROM without difficulty. However unable to active do to pain. ). No: Slow Capillary Refill, Joint Swelling, Mottled, Pallor, Redness Neurological: Alert, Oriented Skin Exam: Warm, Dry, Intact, Normal Color EKG INTERPRETATION Rhythm: NSR Course - Orders/Labs/Meds Orders: Active Orders 24 hr Category Date Time Status CKMB [REF] Stat Lab 01/08/18 10:37 Ordered COMPREHENSIVE METABOLIC PN,CMP [CHEM] Stat Lab 01/08/18 10:50 Received TROPONIN I [CHEM] Stat Lab 01/08/18 10:50 Received Labs: Laboratory Tests 01/08/18 01/08/18 Range/Units 10:37 10:50 WBC 7.7 (4.0-10.0) x10^3/uL RBC 4.30 (4.00-5.50) x10^6/uL Hgb 12.0 (12.0-16.0) g/dL Hct 38.6 (33.0-47.0) % MCV 89.8 (78.0-93.0) fL MCH 27.9 (26.0-32.0) pg MCHC 31.1 L (32.0-36.0) g/dL RDW Coeff of Patrick 16.4 H (10.0-15.0) % Plt Count 300 (130-400) x10^3/uL Neut % (Auto) 78.6 (50.0-80.0) % Lymph % (Auto) 14.2 L (25.0-50.0) % [place] % (Auto) 6.1 (2.0-11.0) % Eos % (Auto) 0.8 (0.0-4.0) % Baso % (Auto) 0.3 (0.2-1.2) % POC Glucose 125 H (74-106) mg/dL Departure - Departure Time of Disposition: 12:00 Disposition: Home, Self-Care 01 Condition: Fair Clinical Impression: Hypoglycemia Muscle strain of left shoulder region Qualifiers: Encounter type: initial encounter Qualified Code(s): S46.912A - Strain of unspecified muscle, fascia and tendon at shoulder and upper arm level, left arm , initial encounter - Discharge Information Instructions: Hypoglycemia, Muscle Strain, [id number] Referrals: Lucy Hogan DO [Primary Care Provider] - Additional Instructions: 1. follow up with PCP for ultrasound results on lower extremities 2. Rest, ice elevate shoulder 3. Take OTC pain relief as need be for shoulder discomfort 4. Ensure eating healthy to prevent hypoglycemia 5. Consult director of social services to evaluate living situation - My Orders Last 24 Hours: My Active Orders 01/08/18 10:37 CKMB [REF] Stat 01/08/18 10:50 COMPREHENSIVE METABOLIC PN,CMP [CHEM] Stat TROPONIN I [CHEM] Stat - Assessment/Plan Last 24 Hours: My Active Orders 01/08/18 10:37 CKMB [REF] Stat 01/08/18 10:50 COMPREHENSIVE METABOLIC PN,CMP [CHEM] Stat TROPONIN I [CHEM] Stat Assessment:: 1. Shoulder strain 2. Hypoglycemia prior to arrival Plan: 1. Xray completed and reviewed with pt 2. Labs completed today results reviewed with the pt. 3. Education provided regarding diabetic diet and ways to prevent hypoglycemia 4. Rest, ice, elevate shoulder. no acute injury found 5. production utility worker consulted regarding living situation and mobility concerns 6. Pt advised to follow up with PCP regarding chronic health concerns
[2018-01-08 11:31] LABS: CHLORIDE,CL 102 mmol/L (98-107); SODIUM,NA 140 mmol/L (136-145)
[2018-01-08 12:39] VITALS: BP 168/94
== END 2018-01-08 12:25 | disposition home or self-care (01) ==
LOC: VM.ED 10:19
DX: S46.912A Strain of unspecified muscle, fascia and tendon at shoulder and upper arm level, left arm, initial encounter (principal); E16.2 Hypoglycemia, unspecified; E78.00 Pure hypercholesterolemia, unspecified; I25.2 Old myocardial infarction; N18.9 Chronic kidney disease, unspecified; I12.9 Hypertensive chronic kidney disease with stage 1 through stage 4 chronic kidney disease, or unspecified chronic kidney disease; Z88.6 Allergy status to analgesic agent; Z91.040 Latex allergy status; Z88.0 Allergy status to penicillin; Z91.010 Allergy to peanuts; Z88.2 Allergy status to sulfonamides; Z91.048 Other nonmedicinal substance allergy status; Z88.5 Allergy status to narcotic agent; Z79.82 Long term (current) use of aspirin; Z79.899 Other long term (current) drug therapy; X58.XXXA Exposure to other specified factors, initial encounter
CPT/HCPCS: 36415; 73030-LT; 80053; 81001; 82553; 82962; 84484; 85025; 99283-GF; 99284

== ENCOUNTER 2018-01-25 07:46 | Day surgery (SDC) | payer MEDICARE, OTHER ==
[~2018-01-25 07:46] MED LIST: Lactated Ringers 1,000 ML IV SCH
[2018-01-25] MEDS ORDERED: fentaNYL 100 MCG/2 ML SDV ONE (09:35)
[2018-01-25] MEDS ORDERED: Propofol 200 MG/20 ML SDV ONE (09:36)
[2018-01-25] MEDS ORDERED: Ondansetron 4 MG/2 ML SDV ONE (09:46)
[2018-01-25 11:32] VITALS: BP 130/48
[2018-01-25] MEDS ORDERED: Acetaminophen 325 MG Tab PO PRN (11:36)
--- NOTE | 2018-01-25 14:42 | OR ---
PREOPERATIVE DIAGNOSIS: Dyspepsia. POSTOPERATIVE DIAGNOSIS: Hiatal hernia with peptic ulcer disease. PROCEDURE PROPOSED: Upper gastrointestinal panendoscopy. PROCEDURE DONE: Upper gastrointestinal panendoscopy with antral biopsies. INDICATION: This is a 72-year-old female bothered with some dyspepsia. She had just recently been prescribed Nexium, but did not actually start taking it. She comes in now for recommended gastroscopy. TECHNIQUE: The patient brought to the endoscopy suite, placed in left lateral decubitus position. She was sedated with MAC anesthesia per MARLY. The flexible video gastroscope was then passed transorally and under visualization advanced well into the duodenum. The duodenum and duodenal bulb were unremarkable. The antrum and body of the stomach looked quite normal and healthy but the GE junction did reveal about a 4 cm hiatal hernia with small mucosal ulcerations in the herniated portion of the stomach. There was no evidence of any active GERD. The GE junction was well demarcated. It was at about 32-33 cm from the incisors. The remainder of the esophagus was normal as the scope was then withdrawn. The patient tolerated the procedure well. I did do some antral biopsies prior to removing the scope to rule out H. pylori. IMPRESSION: Hiatal hernia with small mucosal ulcerations. PLAN: The patient should take her Nexium that she just got prescribed. She is to take it daily for 8 weeks. Needs to avoid caffeine, alcohol, ibuprofen and follow up with her PCP. PREOPERATIVE DIAGNOSIS: Constipation, blood in stool. POSTOPERATIVE DIAGNOSIS: Normal colonoscopic exam, internal hemorrhoids. PROCEDURE PROPOSED: Total flexible colonoscopy PROCEDURE DONE: Total flexible colonoscopy. INDICATION: This 72-year-old female comes in for recommended colonoscopy. She has had 1 done about 10 years ago. She also noted some blood apparently when she was doing a bowel prep and comes in now for recommended colonoscopy. TECHNIQUE: She was already sedated per MARLY with propofol. The flexible videocolonoscope was then passed transanally and under visualization advanced to the cecum. Her bowel prep was somewhat marginal in the ascending colon, hepatic flexure region. There was lot of brownish fluid clinging to the mucosa, but there was no evidence of any masses or polyps. The remainder of the transverse, descending, sigmoid, and rectal colon was otherwise unremarkable. No evidence of any polyps, colitis, diverticulosis. She did appear to have some internal and external hemorrhoids which was likely the source of her bleeding. There was no blood noted on today's exam. She tolerated the procedure well. FINAL IMPRESSION: 1. Essentially normal colonoscopic exam. 2. Internal and external hemorrhoids, likely the source of any recent blood loss. PLAN: If she continues to have some bleeding, she may benefit with Anusol HC suppositories treatment, otherwise I do not feel she needs any future colonoscopies based on her age. SCM: 01/25/2018 10:20:43 MODL: 01/25/2018 12:16:33 /[id number]
--- NOTE | 2018-01-29 10:18 | LETTER ---
01/29/2018 April Puentes RE: APRIL PUENTES : 1945 Dear: April, The biopsies taken from your stomach revealed no diagnostic abnormality and there was no evidence of the H. pylori bacteria in your stomach. I am hoping that you are feeling better on the Nexium. If you have any further questions, feel free to call. Respectfully,
== END 2018-01-25 12:35 | disposition home or self-care (01) ==
LOC: VM.SDS 07:46
PROVIDERS: ATTEND Surgery
DX: K44.9 Diaphragmatic hernia without obstruction or gangrene (principal); K22.10 Ulcer of esophagus without bleeding; L23.0 Allergic contact dermatitis due to metals; K21.9 Gastro-esophageal reflux disease without esophagitis; I25.10 Atherosclerotic heart disease of native coronary artery without angina pectoris; D50.9 Iron deficiency anemia, unspecified; I34.0 Nonrheumatic mitral (valve) insufficiency; F41.9 Anxiety disorder, unspecified; J45.909 Unspecified asthma, uncomplicated; I12.9 Hypertensive chronic kidney disease with stage 1 through stage 4 chronic kidney disease, or unspecified chronic kidney disease; N18.9 Chronic kidney disease, unspecified; F60.9 Personality disorder, unspecified; R53.82 Chronic fatigue, unspecified; Z79.2 Long term (current) use of antibiotics; Z79.52 Long term (current) use of systemic steroids; Z79.82 Long term (current) use of aspirin; Z79.899 Other long term (current) drug therapy; Z88.5 Allergy status to narcotic agent; Z91.040 Latex allergy status; Z88.8 Allergy status to other drugs, medicaments and biological substances; Z91.018 Allergy to other foods
CPT/HCPCS: 00813; 82962; 88305; A9270-GY; J2405; J2704; J3010; J7120

== ENCOUNTER 2018-03-30 15:37 | Inpatient (IN) | payer MEDICARE, OTHER ==
[2018-03-30 17:03] LABS: CHLORIDE,CL 106 mmol/L (98-107); SODIUM,NA 143 mmol/L (136-145)
--- NOTE | 2018-03-30 17:16 | EDM.PDOC ---
ED HPI GENERAL MEDICAL PROBLEM - General Chief Complaint: Respiratory Problem Stated Complaint: SHORTNESS OF BREATH Time Seen by Provider: 03/30/18 15:52 Source of Information: Reports: Patient, Family, Old Records, RN, RN Notes Reviewed History Limitations: Reports: No Limitations - History of Present Illness INITIAL COMMENTS - FREE TEXT/NARRATIVE: Patient was sent to this ER from Physical Therapy department due to complaints of numbness and tingling in both legs and moderate SOB. Patient states her symptoms are chronic but much worse today. Patient complaints of chronic bilateral leg/hip pain. Patient states she is having increase work of breathing. She does not worsening lower extremity edema. She states she has had some wheezing. No chest pain. No abdominal pain. Patient denies N/V/D. - Related Data Allergies Allergy/AdvReac Type Severity Reaction Status Date / Time acetaminophen [From Tylenol] Allergy Edema Verified 03/30/18 16:01 aspirin Allergy Cannot Verified 03/30/18 16:01 Remember Beef Containing Products Allergy Cannot Verified 03/30/18 16:01 Remember fluticasone [From Flonase] Allergy Nose Bleeds Verified 03/30/18 16:01 Latex, Natural Rubber Allergy Rash Verified 03/30/18 16:01 lisinopril Allergy Edema Verified 03/30/18 16:01 nickel [Nickel] Allergy Rash Verified 03/30/18 16:01 nystatin Allergy Hives Verified 03/30/18 16:01 peanut Allergy Cannot Verified 03/30/18 16:01 Remember Penicillins Allergy Itching Verified 03/30/18 16:01 red dye Allergy Cannot Verified 03/30/18 16:01 Remember Sulfa (Sulfonamide Allergy Cannot Verified 03/30/18 16:01 Antibiotics) Remember zinc Allergy Hives Verified 03/30/18 16:01 albuterol AdvReac Tremors Verified 03/30/18 16:01 codeine AdvReac Hallucinati Verified 03/30/18 16:01 ons diphenhydramine HCl AdvReac Headache Verified 03/30/18 16:01 [From Benadryl] prednisone AdvReac Excitabilit Verified 03/30/18 16:01 y molds Allergy Cannot Uncoded 03/25/18 08:42 Remember MSG Allergy Cannot Uncoded 03/25/18 08:42 Remember pollen Allergy Cannot Uncoded 03/25/18 08:42 Remember Home Meds: Home Meds atorvaSTATin [Lipitor] 10 mg PO BEDTIME 10/15/13 [History] Aspirin [Aspirin EC] 325 mg PO DAILY 10/17/13 [History] Iron 65 mg PO Q48H 10/17/13 [History] Levalbuterol Tartrate [Xopenex HFA] 2 puff INH Q4HR PRN 10/17/13 [History] Loratadine [Loratadine Allergy] 10 mg PO DAILY PRN 10/17/13 [History] ClonazePAM [KlonoPIN] 0.25 mg PO BID 10/18/17 [History] Nystatin [Nystatin Crm] 1 applic TOP BID 10/18/17 [History] hydrALAZINE [Apresoline] 10 mg PO BID 10/18/17 [History] Metoprolol Tartrate [Lopressor] 50 mg PO BID 10/20/17 [History] Diclofenac Sodium [Voltaren] 2 g TOP BID 01/22/18 [History] Furosemide [Lasix] 10 mg PO BID 01/22/18 [History] Acetaminophen/HYDROcodone [[place] 325-5 MG] 0.5 - 1 tab PO TID PRN 03/25/18 [ History] Alclometasone Dipropionate 30 g TOP ASDIRECTED 03/25/18 [History] Linaclotide [Linzess] 145 mcg PO DAILY 03/30/18 [History] Past Medical History HEENT History: Reports: Cataract, Hard of Hearing, Other (See Below) Other HEENT History: myopia. presbyopia. hearing loss Cardiovascular History: Reports: CAD, High Cholesterol, Hypertension, OR, Other (See Below) Other Cardiovascular History: angioedema. 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 tremor. osteopenia. RIGHT HIP PAIN. CHRONIC FATIGUE Neurological History: Reports: Parkinson's, Other (See Below) Other Neuro History: tremors. relates dx with parkinsons on 10/16 Psychiatric History: Reports: Anxiety, Other (See Below) Other Psychiatric History: personality disorder Endocrine/Metabolic History: Reports: Osteopenia, Vitamin D Deficiency, Other ( See Below) Other Endocrine/Metabolic History: B12 deficiency. prediabetes Hematologic History: Reports: Anemia, B12 Deficiency, Iron Deficiency Immunologic History: Reports: None Oncologic (Cancer) History: Reports: Cervix Dermatologic History: Reports: Urticaria, Other (See Below) Other Dermatologic History: JOSI RASH OF GROIN - Past Surgical History Head Surgeries/Procedures: Reports: None HEENT Surgical History: Reports: Other (See Below) Other HEENT Surgeries/Procedures: dental Cardiovascular Surgical History: Reports: Coronary Artery Bypass Respiratory Surgical History: Reports: None GI Surgical History: Reports: Appendectomy, Colonoscopy Female Surgical History: Reports: Tubal Ligation Endocrine Surgical History: Reports: None Neurological Surgical History: Reports: None Musculoskeletal Surgical History: Reports: None Oncologic Surgical History: Reports: None Dermatological Surgical History: Reports: None Social & Family History - Family History Family Medical History: Noncontributory - Tobacco Use Smoking Status *Q: Unknown Ever Smoked ED ROS GENERAL - Review of Systems Review Of Systems: See Below Constitutional: Reports: Weakness, Fatigue. Denies: Fever, Chills Respiratory: Reports: Shortness of Breath, Wheezing. Denies: Cough Cardiovascular: Reports: Dyspnea on Exertion. Denies: Chest Pain, Palpitations GI/Abdominal: Denies: Abdominal Pain, Nausea, Vomiting Skin: Reports: No Symptoms Neurological: Reports: Tingling (BLE). Denies: Numbness, Paresthesia ED EXAM, GENERAL - Physical Exam Exam: See Below Exam Limited By: No Limitations General Appearance: Alert, No Apparent Distress Respiratory/Chest: No Respiratory Distress, Decreased Breath Sounds, Crackles Cardiovascular: Regular Rate, Rhythm, Other (+3 dependent pitting edema bilateral) GI/Abdominal: Soft, Non-Tender, Abnormal Bowel Sounds (hypoactive) Neurological: Alert, Oriented Skin Exam: Warm, Dry, Intact EKG INTERPRETATION EKG Date: 03/30/18 Time: 16:33 Rhythm: NSR Rate (Beats/Min): 76 [place]: Normal P-Wave: Present QRS: Normal ST-T: Normal QT: Normal GA/PQ Interval: 0.14 EKG Interpretation Comments: 1. Sinus Rhythm Course - Vital Signs Last Recorded V/S: Last Vital Signs Temp 36.5 C 03/30/18 15:45 Pulse 79 03/30/18 15:45 Resp 24 H 03/30/18 15:45 BP 175/65 H 03/30/18 15:45 Pulse Ox 94 L 03/30/18 15:45 - Orders/Labs/Meds Orders: Active Orders 24 hr Category Date Time Status EKG 12 Lead [EKG Documentation Completion] [RC] STAT Care 03/30/18 16:16 Active Chest 1V Frontal [CR] Stat Exams 03/30/18 16:10 Taken Labs: Laboratory Tests 03/30/18 03/30/18 Range/Units 16:25 16:25 WBC 7.9 (4.0-10.0) x10^3/uL RBC 3.85 L (4.00-5.50) x10^6/uL Hgb 10.3 L D (12.0-16.0) g/dL Hct 33.7 (33.0-47.0) % MCV 87.5 (78.0-93.0) fL MCH 26.8 (26.0-32.0) pg MCHC 30.6 L (32.0-36.0) g/dL RDW Coeff of Patrick 16.1 H (10.0-15.0) % Plt Count 350 (130-400) x10^3/uL Neut % (Auto) 73.9 (50.0-80.0) % Lymph % (Auto) 14.4 L (25.0-50.0) % [place] % (Auto) 7.9 (2.0-11.0) % Eos % (Auto) 3.4 (0.0-4.0) % Baso % (Auto) 0.4 (0.2-1.2) % Sodium 143 (136-145) mmol/L Potassium 3.6 (3.5-5.1) mmol/L Chloride 106 (98-107) mmol/L Carbon Dioxide 30 (21-32) mmol/L Anion Gap 10.6 (10-20) mmol/L BUN 16 (7-18) mg/dL Creatinine 1.2 H (0.55-1.02) mg/dL Est Cr Clr Drug Dosing TNP Estimated GFR (MDRD) 44 Glucose 107 H (74-106) mg/dL Calcium 8.8 (8.5-10.1) mg/dL Corrected Calcium 9.60 (8.5-10.1) mg/dL Phosphorus 3.2 (2.6-4.7) mg/dL Magnesium 1.8 (1.8-2.4) mg/dL Total Bilirubin 0.8 (0.2-1.0) mg/dL AST 16 (15-37) U/L ALT 25 (14-59) U/L Alkaline Phosphatase 118 H (46-116) U/L Creatine Kinase 182 (26-192) U/L Troponin I < 0.017 (<=0.056) ng/mL NT-Pro-B Natriuret Pep 2210 H (<=125) pg/mL Total Protein 6.9 (6.4-8.2) g/dL Albumin 3.0 L (3.4-5.0) g/dL Globulin 3.9 Albumin/Globulin Ratio 0.77 - Radiology Interpretation Free Text/Narrative:: CXR 1V: CHF See scanned report in EMR Departure - Departure Time of Disposition: 17:29 Disposition: Admitted As Inpatient 64 Condition: Fair Clinical Impression: Congestive heart failure Qualifiers: Heart failure type: unspecified Heart failure chronicity: unspecified Qualified Code(s): I50.9 - Heart failure, unspecified - Discharge Information ED Communication - ED Communication Date/Time Date: 03/30/18 Time Called: 17:04 - Discussed Case With (1) Discussed Case With (1): Admitting Provider Person/s Notified (1): Lucy Hogan - Conversation Summary Admitting Provider Agreed to Patient's Admission: Yes Patient Aware of Amendments fo Care Plan: Yes - Problem List Review Problem List Initiated/Reviewed/Updated: Yes - My Orders Last 24 Hours: My Active Orders 03/30/18 16:10 Chest 1V Frontal [CR] Stat 03/30/18 16:16 EKG 12 Lead [EKG Documentation Completion] [RC] STAT - Assessment/Plan Last 24 Hours: My Active Orders 03/30/18 16:10 Chest 1V Frontal [CR] Stat 03/30/18 16:16 EKG 12 Lead [EKG Documentation Completion] [RC] STAT Assessment:: Congestive Heart Failure Plan: Case discussed with Dr. Lucy Hogan. Patient will be admitted acute under her service. Patient is aware and agrees with POC.
[2018-03-30] MEDS ORDERED: LEVALBUTEROL INH PRN (18:12)
[2018-03-30] MEDS ORDERED: Miconazole 2% Top Powder 45 GM Container TOP PRN (18:45)
[2018-03-30] MEDS: Metoprolol Tartrate 50 MG Tab PO SCH (20:18)
[2018-03-30] MEDS: Furosemide 20 MG/2 ML VIAL IV SCH (20:18)
[2018-03-30] MEDS: atorvaSTATin 10 MG Tab PO SCH (20:22)
[2018-03-30] MEDS: ClonazePAM 0.5 MG Tab PO SCH (20:22)
[2018-03-30] MEDS: hydrALAZINE 10 MG Tab PO SCH (20:22)
[2018-03-31] MEDS: Omeprazole 20 MG Cap.CR PO SCH (06:11)
[2018-03-31 07:22] LABS: CHLORIDE,CL 103 mmol/L (98-107); SODIUM,NA 140 mmol/L (136-145)
[2018-03-31] MEDS: Aspirin 325 MG Tab.EC PO SCH (07:44)
[2018-03-31] MEDS: hydrALAZINE 10 MG Tab PO SCH ×2 (07:44→20:30)
[2018-03-31] MEDS: Metoprolol Tartrate 50 MG Tab PO SCH ×2 (07:45→20:32)
[2018-03-31] MEDS: ClonazePAM 0.5 MG Tab PO SCH ×2 (07:45→20:29)
[2018-03-31] MEDS: Furosemide 20 MG/2 ML VIAL IV SCH (07:50)
[2018-03-31] MEDS ORDERED: Furosemide 20 MG/2 ML VIAL IV ONE (09:15)
[2018-03-31] MEDS: Enoxaparin 40 MG/0.4 ML Syringe SUBCUT SCH (11:09)
[2018-03-31] MEDS: LINACLOTIDE 145 MCG PO SCH (11:09)
[2018-03-31] MEDS: Potassium Chloride 10 MEQ Tab.ER PO SCH ×2 (11:09→17:14)
[2018-03-31] MEDS: Ibuprofen 200 MG Tab PO PRN ×2 (11:12→20:35)
--- NOTE | 2018-03-31 13:08 | PN ---
Progress Note for APRIL PUENTES Date: 03/31/2018 Room #: VM.215 SUBJECTIVE: This is a hospital day #2 on a 72-year-old admitted with a chronic diastolic heart failure exacerbation. The patient has diuresed only 650. Her blood pressures have improved, but continued to be elevated. She is not having any chest pain. Her cough is better. Troponins have been negative. She has been able to have about 3 bowel movements by report, but did want to start the Linzess, because her stomach would sort of upset and growling. She did also take a Motrin which helped her back pain. She does not want to take any further hydrocodone as it caused constipation. She is not having any burning with urination, but did request a UA to be done. She had 5-10 wbc's. OBJECTIVE: Vital Signs: Her weight is 90.36 kg, temperature 97.9, pulse 62, blood pressure 163/85, respiratory rate 18, O2 92% on room air. Telemetry showed no events. General: She is in no acute distress. Heart: Regular rate and rhythm with murmur. Lungs: Sounds are clear to auscultation bilaterally with slight decrease over the right base. No crackles. Abdomen: Nondistended, nontender. Extremities: Warm and dry. JING hose in place with just trace edema. Mental Status: She is alert and orientated x3. LABORATORY DATA: Lab work otherwise shows white count normal at 8.2, hemoglobin 9.9, platelets 335. Sodium 140, potassium 3.5, chloride 103, bicarb 29, BUN 14, creatinine 1.3, glucose 88. ASSESSMENT: 1. Acute on chronic diastolic heart failure exacerbation with known ejection fraction of 65%. Given elevated blood pressure still, we will increase diuresis to 40 mg twice daily. 2. Essential hypertension, improving with diuresis. We will continue her home medications and Lasix. 3. Gastroesophageal reflux disease with recent peptic ulcer disease. She is on omeprazole in place of Nexium. 4. History of asthma, stable without exacerbation. She is using Breo at home. We will substitute this for something available on her formulary unless her daughter brings it in. 5. DVT prophylaxis. She is getting Lovenox. 6. Mild anemia, possibly due to some increased fluid from heart failure. We will continue monitoring her hemoglobin. She has recently had EGD and colonoscopy. Her ulcer was not acutely bleeding. She has had some hemorrhoids as well. 7. Constipation. She is having bowel movements, but still she started her Linzess. We will see how this goes. 8. Back pain with radiculopathy. PT has been ordered. PLAN: At this point, the patient will continue acute cares. She will be on IV Lasix, telemetry, strict monitoring, ins and outs. We will repeat lab work tomorrow. We will get her up and working with therapy. She is also on her Klonopin for anxiety. She feels her moods are good. She does have a history of coronary artery disease, but has not had any chest pain and troponins have been negative. NEETUA: 03/31/2018 12:44:09 MODL: 03/31/2018 13:00:15 /[id number]
--- NOTE | 2018-03-31 13:26 | HP ---
CHIEF COMPLAINT: Shortness of breath. HISTORY OF PRESENT ILLNESS: This is a 72-year-old female, who was working with Physical Therapy today when her legs became tingly. She has been working with them due to back and hip pain and she became short of breath. She does have a history of asthma and has shortness of breath on a routine basis, but has not been having wheezing, although reports to me she has been having some dry cough over the past week. She is also having some increased lower extremity swelling, but no chest pain. She has a known history of coronary artery disease with bypass surgery back in 2006 for unstable angina. She otherwise does have a known hiatal hernia, but has not been admitted previously for heart failure. She was on Lasix 10 mg twice daily back in January, was decreased to once daily to see if that would help with lightheadedness. Otherwise, back in 05/2017, her EF was 65%. She had trivial mitral regurgitation. No major valve problems on her echo. She has also gained some weight over the past 3 months. She has gained about 8 to 9 pounds. ALLERGIES: Include numerous things: Penicillin, itching; codeine, anaphylaxis; latex; various foods; red dye, nut food; nystatin; albuterol causes a tremor; Benadryl; Flonase causes nose bleeds; lisinopril caused edema, possibly angioedema; nickel, contact dermatitis; prednisone makes her angry; sulfur; and Tylenol, she swells with that; zinc, she gets allergy attacks. MEDICATIONS: Medication list is reviewed. She is taking Nexium 20 mg twice daily, has about 3 weeks left on this; Linzess 145 daily recently started the end of February; Xopenex inhaler as needed; Lasix 10 mg daily; Lopressor 50 mg twice a day; Lipitor 10 mg daily; Nystatin powder 3 times a day if needed for rashes; Klonopin 0.5 twice a day; hydralazine 10 in the morning and 10 in the evening; diclofenac gel; steroid cream if needed; and aspirin 325 daily. PAST MEDICAL HISTORY: Includes recently she had an EGD which showed her to have some peptic ulcer disease. Therefore, the Nexium was increased. She also had some internal and external hemorrhoids on colonoscopy. Otherwise, she has possible Parkinson disease. She has been following with Neurology. She has had recurrent angioedema. She has had asthma, mild, intermittent. She has had again coronary artery disease in 2006, CABG x3 for unstable angina. She has had a history of iron-deficiency anemia. She has had anxiety, essential hypertension, B12 deficiency, osteopenia, prediabetes, chronic renal insufficiency, mild. Her last creatinine in the clinic on 01/06/2018 was 1.3. She has had some trivial mitral regurgitation, hyperlipidemia. She has had reported personality disorder with fixed firm beliefs reported in the past. She has had carotid artery stenosis, bilateral, asymptomatic, 60% to 65%; GERD; some right hip pain with degenerative changes in the hips and recently had an MRI in 02/2018, which showed her to have multilevel degenerative changes and L5-S1 central disk protrusion with mass effect onto the S1 nerve root on the right. SOCIAL HISTORY: The patient is . She lives with her daughter. She has multiple other children as well like 7 total. 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 She does not smoke. FAMILY HISTORY: She has both parents are . Father had heart disease, heart attack. Mother had cancer and diabetes. REVIEW OF SYSTEMS: General: She has again had weight gain. No change in fatigue. No fever. No chills. HEENT: No sore throat. Cardiac: No chest pain, but has had edema and shortness of breath. Respiratory: Dry cough , again shortness of breath, probably related more to heart failure. No wheezing. Gastrointestinal: No abdominal pain. She does have chronic constipation, possibly worsened by pain pills. She refuses to take some at this point. I have tried to stop them for her previously, but were restarted for flares of pain, but she took hydrocodone pretty sparingly. Otherwise, no nausea or vomiting. Genitourinary: No dysuria. Musculoskeletal: She has a back and right leg pain. Otherwise, all systems reviewed and found to be negative unless otherwise stated. PHYSICAL EXAMINATION: Vital Signs: On admission include a weight of 92.3 kg, temperature 98, pulse 84, blood pressure was up to 200/89, respiratory rate 18, and O2 91% on room air. General: She is in no acute distress. Neck: No JVD was present on exam. Her neck was supple without lymphadenopathy. Heart: Regular rate and rhythm. S1, S2 with a murmur which is unchanged. Lungs: Sounds were slightly decreased in the bases, otherwise clear without crackles. Abdomen: Nondistended, nontender. Extremities: Warm and dry. She did have 1+ edema at the ankle. Mental Status: She is alert and orientated x3. Moods; she was polite and cooperative. DIAGNOSTIC STUDIES: EKG was reviewed. She had a sinus rhythm, rate 76, normal axis. There was some nonspecific ST changes in the anterior, lateral, and inferior regions. However, overall not changed from her previous clinic EKG. Lab work did show a negative troponin. White count 7.9, hemoglobin 10.3, platelets 350. Recent clinic hemoglobin was found to be 12.6. Sodium 143, potassium 3.6, chloride 106, bicarb 30, BUN 16, creatinine 1.2, glucose 107. Calcium 8.8, phosphorus 3.2, magnesium 1.8, bilirubin 0.8, AST 16, ALT 25, alkaline phosphatase 118. ProBNP 2210. Troponin negative. Albumin 3. ASSESSMENT: 1. Acute on chronic diastolic heart failure exacerbation with known ejection fraction of 65% in 05/2017. 2. Hypertensive urgency, probably due to congestive heart failure with underlying essential hypertension. 3. Known history of coronary artery disease, stable without angina. Need to rule out for acute myocardial infarction given heart failure presentation, although the symptoms have been gradually coming on over the past week. 4. Possible Parkinson's. 5. Back pain with lumbar radiculopathy. Working with PT. 6. History of carotid artery stenosis. 7. Gastroesophageal reflux disease with some concern for peptic ulcer disease with mucosal ulcerations in January. She is on Nexium b.i.d. 8. Mild renal insufficiency, stable. 9. Osteopenia. 10.Prediabetes. 11.Iron-deficiency anemia with recent EGD and colonoscopy. PLAN: At this point, the patient will be admitted for acute cares with IV Lasix. We will increase it to 20 mg IV b.i.d. We will get her up and moving with therapies. We will monitor her on telemetry. We will do daily weights to monitor ins and outs. I suspect her blood pressure will come down with diuresis. Anticipate she will be admitted at least 2 nights. Continue oxygen if needed. Otherwise, continue her home anxiety medications and tremor medications of Klonopin. Rule out with serial troponins. Repeat lab work in the morning. The patient is a full code. For DVT prophylaxis, I will place her on Lovenox. MKA: 03/31/2018 10:19:54 MODL: 03/31/2018 13:17:34 /[id number]
[2018-03-31] MEDS ORDERED: [UNRECOGNIZED DRUG - OTHER] INH SCH (15:00)
[2018-03-31] MEDS ORDERED: VILANTEROL INH SCH (15:00)
[2018-03-31] MEDS: [UNRECOGNIZED DRUG - OTHER] INH SCH (16:47)
[2018-03-31] MEDS: VILANTEROL INH SCH (16:47)
[2018-03-31] MEDS: Furosemide 40 MG/4 ML VIAL IV SCH (17:14)
[2018-03-31] MEDS: atorvaSTATin 10 MG Tab PO SCH (20:32)
[2018-04-01] MEDS: Omeprazole 20 MG Cap.CR PO SCH (06:18)
[2018-04-01] MEDS: ClonazePAM 0.5 MG Tab PO SCH ×2 (07:45→19:59)
[2018-04-01] MEDS: hydrALAZINE 10 MG Tab PO SCH ×2 (07:45→20:00)
[2018-04-01] MEDS: Aspirin 325 MG Tab.EC PO SCH (07:45)
[2018-04-01] MEDS: Metoprolol Tartrate 50 MG Tab PO SCH ×2 (07:46→19:59)
[2018-04-01] MEDS: Potassium Chloride 10 MEQ Tab.ER PO SCH (07:46)
[2018-04-01] MEDS: LINACLOTIDE 145 MCG PO SCH (07:53)
[2018-04-01] MEDS: Potassium Chloride 10 MEQ Tab.ER PO ONE ×2 (08:57→09:17)
[2018-04-01] MEDS: Magnesium Hydroxide 400 MG/5 ML Susp 30 ML Cup PO SCH (08:57)
[2018-04-01] MEDS: Furosemide 40 MG/4 ML VIAL IV SCH ×3 (08:57→17:22)
[2018-04-01] MEDS: [UNRECOGNIZED DRUG - OTHER] INH SCH (09:00)
[2018-04-01] MEDS: Sodium Chloride 0.9% 10 ML Syringe FLUSH PRN ×2 (09:00→17:22)
[2018-04-01] MEDS: VILANTEROL INH SCH (09:00)
[2018-04-01] MEDS: Potassium Chloride 10% 20 MEQ/15 ML Soln 15 ML UD Cup PO SCH ×2 (09:18→17:25)
--- NOTE | 2018-04-01 12:08 | PN ---
Progress Note for APRIL PUENTES Date: 04/01/2018 Room #: VM.215 SUBJECTIVE: This is a hospital day #3 on a 72-year-old admitted with an acute diastolic heart failure exacerbation. The patient's weight is down about 2 pounds from admission. Unfortunately, she has had quite a bit of fluid intake, it was positive 800 yesterday, despite diuresis with 40 mg of Lasix b.i.d. Her potassium despite getting some replacements went down to 3.2, but creatinine went up slightly from 1.3 to 1.5. Her breathing is better, but she still short of breath. She wants to make sure the fluid is gone. She said her cough was better, but then she had some trouble swallowing some potassium pill and did quite a bit of coughing. An x-ray was done, which showed no pneumonia or edema. Otherwise, she has not had any chest pain. She has not really been out of bed much other than to the commode. She still has her back pain. Physical Therapy did not see her yet. OBJECTIVE: Vital Signs: Today, her weight 89.2 kg, pulse 63, blood pressure 171/94, respiratory rate 18, and O2 of 92% on room air. She was down to 88 on room air last night. General: She is in no acute distress. Heart: Regular rate and rhythm. Lungs: Sounds are decreased in the bases, but no crackles or wheezes appreciated. Abdomen: Positive bowel sounds. Soft and nontender. Extremities: Warm and dry. She still has 1+ edema. She does not have the JING hose on currently. LABORATORY DATA: Lab work for her today does show her to have a white count 7.9, hemoglobin 10.4, which is up, and platelets 350. Sodium 138, potassium 3.2, chloride 101, bicarb 28, BUN 15, creatinine 1.5, glucose 87, and calcium 8.6. Chest x-ray report again no pneumonia or edema. ASSESSMENT AND PLAN: 1. Acute on chronic diastolic heart failure exacerbation with known EF of 65%. We will repeat an echo as an outpatient given the elevated blood pressures. I am going to institute a fluid restriction 2 L and put her on 60 mg twice daily of IV Lasix. We will repeat lab work in the morning. 2. Essential hypertension it had improved slightly with diuresis. We will continue to monitor. We will continue her home medications. She is not on any Cain or ARB, but does have a history of significant allergies and given that she has had more diastolic failure and has had previous angioedema. I would hold off on those type of medications. She is on hydralazine and metoprolol. 3. Constipation. She got cramps yesterday from Linzess. She is requesting milk of magnesia daily, so will do that. 4. History of asthma. If she has any symptoms since her daughter did not bring her inhalers, then we will order her some nebulizers. She does have Xopenex available. 5. Gastroesophageal reflux disease with hiatal hernia. She is on Nexium as an outpatient. Currently on Prilosec. 6. Deep venous thrombosis prophylaxis, on Lovenox. 7. Mild anemia. Hemoglobin stable. 8. Back pain with radiculopathy. PT will evaluate her today. PLAN: At this point, we will increase IV Lasix. We will discontinue telemetry. We will monitor vitals and lab work. We will reassess things in the morning. Potential discharge home or over to swing bed tomorrow. We will get Speech involved due to her swallowing trouble with the potassium supplements due to the hypokalemia. We will replace that orally. NEETUA: 04/01/2018 11:41:55 MODL: 04/01/2018 12:02:04 /[id number]
[2018-04-01] MEDS: Enoxaparin 40 MG/0.4 ML Syringe SUBCUT SCH (13:08)
[2018-04-01] MEDS: Ibuprofen 200 MG Tab PO PRN ×2 (14:24→23:39)
[2018-04-01] MEDS: atorvaSTATin 10 MG Tab PO SCH (19:59)
[2018-04-02] MEDS: Omeprazole 20 MG Cap.CR PO SCH (06:35)
[2018-04-02] MEDS: [UNRECOGNIZED DRUG - OTHER] INH SCH (08:37)
[2018-04-02] MEDS: VILANTEROL INH SCH (08:37)
[2018-04-02] MEDS: Potassium Chloride 10% 20 MEQ/15 ML Soln 15 ML UD Cup PO SCH (08:38)
[2018-04-02] MEDS: Furosemide 40 MG/4 ML VIAL IV SCH (08:38)
[2018-04-02] MEDS: LINACLOTIDE 145 MCG PO SCH (08:38)
[2018-04-02] MEDS ORDERED: Potassium Chloride 10% 20 MEQ/15 ML Soln 15 ML UD Cup PO SCH (09:30)
[2018-04-02] MEDS: Aspirin 325 MG Tab.EC PO SCH (09:39)
[2018-04-02] MEDS: hydrALAZINE 10 MG Tab PO SCH ×2 (09:39→20:33)
[2018-04-02] MEDS: Metoprolol Tartrate 50 MG Tab PO SCH ×2 (09:40→20:29)
[2018-04-02] MEDS: ClonazePAM 0.5 MG Tab PO SCH ×2 (09:40→20:28)
[2018-04-02] MEDS: Magnesium Hydroxide 400 MG/5 ML Susp 30 ML Cup PO SCH (09:40)
[2018-04-02] MEDS: Sodium Chloride 0.9% 10 ML Syringe FLUSH PRN ×2 (09:54→20:36)
[2018-04-02] MEDS: Enoxaparin 40 MG/0.4 ML Syringe SUBCUT SCH (11:53)
[2018-04-02] MEDS: Potassium Chloride 20 MEQ Tab.ER PO SCH (11:53)
--- NOTE | 2018-04-02 15:47 | PN ---
Progress Note for APRIL PUENTES Date: 04/02/2018 Room #: VM.215 SUBJECTIVE: This is hospital day #3 on a 72-year-old admitted with an acute diastolic heart failure exacerbation. Her past EF has been 65% in 2017, with no major valvular abnormalities. She has had no chest pain. Her breathing and cough have improved. However, she is still having significant oral intake despite a fluid restriction. She is drinking quite a bit of water. She still had a positive fluid balance yesterday, but her weight did come down 7 pounds based on the weight this morning. She is down about 10 pounds from her recent clinic weight. Unfortunately, her creatinine, which was 1.3 on admission, which is near her baseline with CKD 3, went up to 1.5 yesterday and 2.1 today despite good intake. She is voiding, incontinent of urine. Bladder scan has been ordered. Otherwise, blood pressures continue to remain high. She is still having some back pain that limits her mobility, but she was walking in the halls yesterday. PT has felt she would benefit from swing bed. She was seen by speech therapy after a coughing episode with her pills yesterday. They recommended a soft diet with thickened liquids and she is tolerating that. Swallow eval Thursday. There is some concern for underlying Parkinson's. The patient did get some Motrin during her stay for back pain, as she has refused narcotics because it caused significant constipation. She had several bowel movements few days ago, but none yesterday despite some milk of mag. She is getting about 2 doses of Motrin a day total of 800 mg. Recent lasix dose was 60 IV BID clinic dosing was previously decreased to 10 mg daily. OBJECTIVE: Vital Signs: Her temperature 98.2, pulse 58, blood pressure 148/58, respiratory rate 20, and O2 95% on room air. General: She is in no acute distress. HEART: Regular rate and rhythm. S1, S2 with murmur. Respirations: Lungs sounds are clear to auscultation bilaterally without crackles or wheezes. Abdomen: Positive bowel sounds. Soft and nontender. Extremities: Warm and dry. No edema. Mental Status: She is alert and orientated x3. Extremities: Show trace edema still. ASSESSMENT AND PLAN: 1. Acute on chronic renal failure, possibly due to NSAID use in the setting of diuresis. She is not on any HAMMAD inhibitors. She had a UA on admission, which did show some rbc's and wbc's without any symptoms of infection. Given the worsening kidney function, we will check a UA today. We will also do a bladder scan. We will stop the NSAIDs. We will hold off on further Lasix and repeat renal function tomorrow. She has good adequate oral intake, so no indication to give IV fluids. 2. Acute on chronic diastolic heart failure, improved. We will monitor now off diuresis. 3. Essential hypertension. Blood pressure still elevated mildly, but overall improved. We will continue to monitor. 4. Constipation. She is getting Milk of Mag daily. She declines the Linzess. We will make adjustments as needed. 5. History of asthma. She has her home inhalers ordered including Breo. This is stable. She had a chest x-ray yesterday that looked okay. 6. GERD with hiatal hernia. She had a recent colonoscopy and upper GI in January with some hemorrhoids. Otherwise, no significant inflammation noted or reported in the stomach, but reported peptic ulcer disease. She has been on increased Nexium. She still has some discomfort. 7. DVT prophylaxis, on Lovenox. Due to decreasing GFR, we will stop Lovenox today. 8. Mild anemia. Hemoglobin has been stable. We will repeat tomorrow. 9. Back pain with radiculopathy. She has been working outpatient with PT and the [facility]. 10.Possible underlying Parkinson's with swallowing problems. She will see speech and have a swallow eval Thursday. 11. Hx of CAD stable without angina Plan at this point due to worsening kidney function, the patient will continue on acute cares. We will stop IV Lasix and NSAIDs. We will repeat the UA and get a bladder scan. We will repeat lab work tomorrow. If creatinine is improving, she will transition over to swing bed. In the meantime, nothing is ordered for pain, as she has "swelling" with Tylenol and I do not advise hydrocodone due to side effects of constipation. She has multiple allergies to numerous medications including, but none listed to Neurontin. It could potentially be worth a try. Otherwise, she will require skilled PT, possibly OT. They will assess her next week. She needs some help putting on her support stockings. Speech for the swallow eval. Continue the diet plan. ANA Lovenox. Lab work in the morning. Post void residual: 517 even after a large incontinent void, she only voided continent 40 ml and sample was sent to lab and is pending. Scan was for [address] orders [address] a whiting for retention and strict Ins and outs. Patient mentions problems since she had a whiting for a procedure last fall, has had previous UTI and incontinence problems. Had a CT in 10/04 that showed no problems in her pelvis and also an MRI off narcotics for at least this admission and was taking only small amounts so the cause of the urinary retention is not entirely clear. MRI recently done: Multilevel degenerative changes. There is moderate multilevel disc space narrowing and mild multilevel facet arthropathy. L5-S1 there is a central disc protrusion which does have mass affect and on the S1 nerve roots bilaterally more pronounced on the right. Correlate for S1 radicular symptoms particularly on the right side. MKA: 04/02/2018 15:11:47 MODL: 04/02/2018 15:40:22 /[id number] GOLDIE
[2018-04-02] MEDS: atorvaSTATin 10 MG Tab PO SCH (20:29)
[2018-04-03] MEDS: Omeprazole 20 MG Cap.CR PO SCH (06:56)
[2018-04-03] MEDS: hydrALAZINE 10 MG Tab PO SCH (08:51)
[2018-04-03] MEDS: Metoprolol Tartrate 50 MG Tab PO SCH (08:51)
[2018-04-03] MEDS: ClonazePAM 0.5 MG Tab PO SCH (08:52)
[2018-04-03] MEDS: Potassium Chloride 20 MEQ Tab.ER PO SCH ×2 (08:52→09:09)
[2018-04-03] MEDS: Aspirin 325 MG Tab.EC PO SCH (08:52)
[2018-04-03] MEDS: VILANTEROL INH SCH (08:58)
[2018-04-03] MEDS: [UNRECOGNIZED DRUG - OTHER] INH SCH (08:58)
[2018-04-03] MEDS: LINACLOTIDE 145 MCG PO SCH (08:59)
[2018-04-03] MEDS: Magnesium Hydroxide 400 MG/5 ML Susp 30 ML Cup PO SCH (09:05)
--- NOTE | 2018-04-03 09:27 | PCM.DCSUM1 ---
Discharge Summary - Hospital Course Brief History: Ms. Parker is a 72 yo female admitted with a CHF exacerbation after presenting with shortness of breath and weight gain. Diagnosis: Stroke: No - Discharge Data Discharge Date: 04/03/18 Discharge Disposition: DC/Tfer W/I Hosp To Swing 61 Condition: Good - Discharge Diagnosis/Problem(s) (1) Acute kidney injury SNOMED Code(s): 94385902 ICD Code: N17.9 - ACUTE KIDNEY FAILURE, UNSPECIFIED Status: Acute Current Visit: Yes Problem Details: Her hospitalization has been complicated by acute on chronic renal injury, which is what kept her acute for an extra day. This was felt to be multifactorial, including urinary retention, NSAID use for back pain, and diuresis. She had a urinary catheter placed yesterday with increased urinary output. Her lasix has also been held. Her creatinine is now improved today. Therefore, she will transition to swing bed today. The catheter will remain in place until tomorrow at which point we will consider removal and a voiding trial. We will plan to recheck lab tomorrow. (2) Congestive heart failure SNOMED Code(s): 03688523 ICD Code: I50.9 - HEART FAILURE, UNSPECIFIED Status: Acute Current Visit : Yes Problem Details: Patient initially admitted with CHF exacerbation. She has been treated with IV lasix and also placed on a fluid restriction. Her weight has downtrended nicely and her symptoms of shortness of breath and swelling have resolved. She has been off lasix since yesterday but is still down 2 pounds overnight. Will continue to hold lasix today and reassess weight/ renal function tomorrow. Her potassium will also be discontinued as this was only required for the additional diuresis during this hospitalization and he was not on this prior. K is normal today. Qualifiers: Heart failure type: diastolic Heart failure chronicity: acute on chronic Qualified Code(s): I50.33 - Acute on chronic diastolic (congestive) heart failure (3) Constipation SNOMED Code(s): 06210777 ICD Code: K59.00 - CONSTIPATION, UNSPECIFIED Status: Chronic Current Visit: Yes Problem Details: Patient has had intermittent issues with this but has a bowel regimen ordered. Qualifiers: Constipation type: unspecified constipation type Qualified Code(s): K59.00 - Constipation, unspecified (4) Asthma SNOMED Code(s): 916480132 ICD Code: J45.909 - UNSPECIFIED ASTHMA, UNCOMPLICATED Status: Chronic Current Visit: Yes Problem Details: She has no current symptoms of an asthma exacerbation. Home inhalers have been continued. Qualifiers: Asthma severity: moderate Asthma persistence: persistent Asthma complication type: uncomplicated Qualified Code(s): J45.40 - Moderate persistent asthma, uncomplicated (5) Parkinson disease SNOMED Code(s): 72186323 ICD Code: G20 - PARKINSON'S DISEASE Status: Chronic Current Visit: No Problem Details: Presumed diagnosis based on patient's physical exam; has not been formally diagnosed. Likely contributes to her weakness and difficulty ambulating. (6) Anemia of chronic disorder SNOMED Code(s): 530480215 ICD Code: D63.8 - ANEMIA IN OTHER CHRONIC DISEASES CLASSIFIED ELSEWHERE Status: Chronic Current Visit: No Problem Details: Hemoglobin has been stable during this hospitalization. (7) Back pain SNOMED Code(s): 590788303 ICD Code: M54.9 - DORSALGIA, UNSPECIFIED Status: Chronic Priority: Low Current Visit: No Problem Details: Patient had been treated with NSAID's, which have been discontinued after her MICHELLE. She is not complaining of any back pain today despite not being on any specific management for this. Will continue to monitor. Qualifiers: Back pain location: low back pain Chronicity: acute Back pain laterality : midline Sciatica presence: without sciatica Qualified Code(s): M54.5 - Low back pain (8) CAD (coronary artery disease) SNOMED Code(s): 96534429 ICD Code: I25.10 - ATHSCL HEART DISEASE OF [place] CORONARY ARTERY W/O ANG PCTRS Status: Chronic Current Visit: No Problem Details: Patient has no acute symptoms for this. Home medications continued. Qualifiers: Coronary Disease-Associated Artery/Lesion type: [place] artery [place] vs. transplanted heart: [place] heart Associated angina: without angina Qualified Code(s): I25.10 - Atherosclerotic heart disease of [place] coronary artery without angina pectoris (9) Gastroesophageal reflux disease SNOMED Code(s): 598786364 ICD Code: K21.9 - GASTRO-ESOPHAGEAL REFLUX DISEASE WITHOUT ESOPHAGITIS Status: Chronic Current Visit: No Problem Details: No acute concerns. Home medications are continued. Qualifiers: Esophagitis presence: esophagitis presence not specified Qualified Code(s) : K21.9 - Gastro-esophageal reflux disease without esophagitis (10) Hypertension SNOMED Code(s): 34050730 ICD Code: I10 - ESSENTIAL (PRIMARY) HYPERTENSION Status: Chronic Current Visit: No Problem Details: Blood pressure has been elevated intermittently but overall at goal. Home medications have been continued. Qualifiers: Hypertension type: essential hypertension Qualified Code(s): I10 - Essential (primary) hypertension - Patient Summary/Data Operative Procedure(s) Performed: none Complications: none Consults: Consultations 03/31/18 10:19 PT Evaluation and Treatment [CONS] Routine 03/31/18 12:36 Consult to Repairer Recreational Vehicle [CONS] Routine 04/01/18 09:11 Consult to Speech Language Pathology [BRIM POUNCER MACHINE OPERATOR Evaluation and Treatment] [CONS] Routine 04/02/18 08:52 Consult to Dietary [Consult to Electronic Semiconductor Processor] [CONS] Routine OT Evaluation and Treatment [CONS] Routine Labs Pending at D/C: none Recommended Follow-up Testing/Procedures: BMP tomorrow Planned Operative Procedure(s) after DC: none Hospital Course: See details as above. Patient's shortness of breath and swelling that prompted initial admission have resolved. She remained acute overnight due to worsening renal function yesterday. That has improved with discontinuation of lasix and NSAID's as well as placement of a urinary catheter. She will be transitioned to swing bed today. Will plan to recheck lab in the am and proceed with a voiding trial tomorrow. - Patient Instructions Diet: Heart Healthy Diet Fluid Restriction: 2000 mL Activity: As Tolerated Driving: Do Not Drive Showering/Bathing: May Shower - Discharge Plan Home Medications: Home Meds atorvaSTATin [Lipitor] 10 mg PO BEDTIME 10/15/13 [History] Aspirin [Aspirin EC] 325 mg PO DAILY 10/17/13 [History] Levalbuterol Tartrate [Xopenex HFA] 2 puff INH Q4HR PRN 10/17/13 [History] ClonazePAM [KlonoPIN] 0.25 mg PO BID 10/18/17 [History] hydrALAZINE [Apresoline] 10 mg PO BID 10/18/17 [History] Metoprolol Tartrate [Lopressor] 50 mg PO BID 10/20/17 [History] Diclofenac Sodium [Voltaren] 2 g TOP BID 01/22/18 [History] Furosemide [Lasix] 10 mg PO DAILY 01/22/18 [History] Alclometasone Dipropionate 1 applic TOP BID 03/25/18 [History] Esomeprazole Magnesium [Nexium] 20 mg PO DAILY 03/30/18 [History] Linaclotide [Linzess] 145 mcg PO DAILY 03/30/18 [History] Nystatin 1 gm TP TID 03/30/18 [History] Breo 1 puff INH DAILY 04/03/18 [Rx] Magnesium Hydroxide [Milk of Magnesia] 30 ml PO DAILY cup 04/03/18 [Rx] Referrals: Lucy Hogan DO [Primary Care Provider] - 04/15/18 3:20 pm (You have a follow up appt. with Dr. Mag Hogan on April 15, 2018 at 3:20) - Discharge Summary/Plan Comment DC Time >30 min.: No - General Info Date of Service: 04/03/18 Subjective Update: Patient is feeling well this morning. She is frustrated by the catheter and the fact that she is getting up to the chair this morning. She denies any shortness of breath. Cough is minimal. No chest pain, fever, or chills. No new concerns today. - Review of Systems General: Reports: No Symptoms HEENT: Reports: No Symptoms Pulmonary: Reports: No Symptoms Cardiovascular: Reports: No Symptoms Gastrointestinal: Reports: No Symptoms Genitourinary: Reports: No Symptoms Musculoskeletal: Reports: No Symptoms Skin: Reports: No Symptoms - Patient Data Vitals - Most Recent: Last Vital Signs Temp 36.9 C 04/03/18 06:00 Pulse 59 L 04/03/18 08:51 Resp 20 04/03/18 06:00 BP 169/70 H 04/03/18 08:51 Pulse Ox 94 L 04/03/18 06:00 Weight - Most Recent: 85.638 kg I&O - Last 24 hours: Intake & Output 04/02/18 04/03/18 04/03/18 22:59 06:59 14:59 Intake Total 0 470 120 Output Total 990 1200 Balance -990 -730 120 Lab Results - Last 24 hrs: Laboratory Results - last 24 hr 04/02/18 04/03/18 04/03/18 Range/Units 15:07 07:54 07:54 WBC 7.2 (4.0-10.0) x10^3/uL RBC 4.20 (4.00-5.50) x10^6/uL Hgb 11.1 L (12.0-16.0) g/dL Hct 36.0 (33.0-47.0) % MCV 85.7 (78.0-93.0) fL MCH 26.4 (26.0-32.0) pg MCHC 30.8 L (32.0-36.0) g/dL RDW Coeff of Patrick 16.3 H (10.0-15.0) % Plt Count 357 (130-400) x10^3/uL Neut % (Auto) 64.9 (50.0-80.0) % Lymph % (Auto) 16.9 L (25.0-50.0) % [place] % (Auto) 8.2 (2.0-11.0) % Eos % (Auto) 9.6 H (0.0-4.0) % Baso % (Auto) 0.4 (0.2-1.2) % Sodium 142 (136-145) mmol/L Potassium 4.0 (3.5-5.1) mmol/L Chloride 102 (98-107) mmol/L Carbon Dioxide 33 H (21-32) mmol/L Anion Gap 11.0 (10-20) mmol/L BUN 18 (7-18) mg/dL Creatinine 1.9 H (0.55-1.02) mg/dL Est Cr Clr Drug Dosing 23.38 mL/min Estimated GFR (MDRD) 26 Glucose 93 (74-106) mg/dL Calcium 8.9 (8.5-10.1) mg/dL Urine Color Yellow (YELLOW) Urine Appearance Clear (CLEAR) Urine pH 5.5 (5.0-8.0) Ur Specific [place] <=1.005 Urine Protein Negative (NEGATIVE) mg/dL Urine Glucose (UA) Negative (NEGATIVE) mg/dL Urine Ketones Negative (NEGATIVE) mg/dL Urine Occult Blood Trace-intact H (NEGATIVE) Urine Nitrite Negative (NEGATIVE) Urine Bilirubin Negative (NEGATIVE) Urine Urobilinogen 0.2 (0.2) EU/dL Ur Leukocyte Esterase Moderate H (NEGATIVE) Urine RBC 0-5 (NOT SEEN) /HPF Urine WBC 5-10 H (NOT SEEN) /HPF Ur Squamous Epith Cells Few H (NEGATIVE) /HPF Urine Bacteria Few H (NEGATIVE) /HPF Urine Mucus Rare H (NEGATIVE) /LPF Med Orders - Current: Current Medications Aspirin (Ecotrin) 325 mg PO DAILY [facility] Last Admin: 04/03/18 08:52 Dose: 325 mg Atorvastatin Calcium (Lipitor) 10 mg PO BEDTIME [facility] Last Admin: 04/02/18 20:29 Dose: 10 mg Clonazepam (Klonopin) 0.25 mg PO BID [facility] Last Admin: 04/03/18 08:52 Dose: 0.25 mg Hydralazine HCl (Apresoline) 10 mg PO BID [facility] Last Admin: 04/03/18 08:51 Dose: 10 mg Magnesium Hydroxide (Milk Of Magnesia) 30 ml PO DAILY [facility] Last Admin: 04/03/18 09:05 Dose: 30 ml Metoprolol Tartrate (Lopressor) 50 mg PO BID [facility] Last Admin: 04/03/18 08:51 Dose: 50 mg Miconazole (Desenex 2%) 0 gm TOP TID PRN PRN Reason: RASH Last Admin: 03/31/18 09:00 Dose: 1 applic Levalbuterol [ Xopenex Hfa] (Own Supply) 0 puff INH Q4HR PRN PRN Reason: Shortness of Breath Linaclotide [Linzess ] 145 Mcg (Own Supply) 0 mcg PO DAILY [facility] Last Admin: 04/03/18 08:59 Dose: Not Given Breo Ellipta ( Fluticasone/Vilanterol) Own Supply 1 puff INH DAILY [facility] Last Admin: 04/03/18 08:58 Dose: 1 puff Omeprazole (Omeprazole) 20 mg PO DAILY@0700 [facility] Last Admin: 04/03/18 06:56 Dose: 20 mg Potassium Chloride (Klor-Con M20) 40 meq PO DAILY [facility] Last Admin: 04/03/18 09:09 Dose: Not Given Sodium Chloride (Saline Flush) 10 ml FLUSH ASDIRECTED PRN PRN Reason: Keep Vein Open Last Admin: 04/02/18 20:36 Dose: 10 ml Discontinued Medications Enoxaparin Sodium (Lovenox) 40 mg SUBCUT Q24H [facility] Last Admin: 04/02/18 11:53 Dose: 40 mg Furosemide (Lasix) 20 mg IV BIDDIURETIC [facility] Last Admin: 03/31/18 07:50 Dose: 20 mg Furosemide (Lasix) 40 mg IV BIDDIURETIC [facility] Last Admin: 04/01/18 09:25 Dose: Not Given Furosemide (Lasix) 20 mg IV ONETIME ONE Stop: 03/31/18 09:16 Last Admin: 03/31/18 09:19 Dose: 20 mg Furosemide (Lasix) 60 mg IV BIDDIURETIC [facility] Last Admin: 04/02/18 08:38 Dose: Not Given Ibuprofen (Motrin) 400 mg PO Q8H PRN PRN Reason: Pain/Fever Last Admin: 04/01/18 23:39 Dose: 400 mg Potassium Chloride (Klor-Con 10) 10 meq PO BIDMEALS [facility] Last Admin: 04/01/18 07:46 Dose: 10 meq Potassium Chloride (Potassium Chloride Solution) 40 meq PO BIDMEALS [facility] Last Admin: 04/02/18 08:38 Dose: Not Given Potassium Chloride (Klor-Con 10) 30 meq PO ONETIME ONE Stop: 04/01/18 08:46 Last Admin: 04/01/18 09:17 Dose: Not Given Potassium Chloride (Potassium Chloride Solution) 40 meq PO DAILY [facility] Last Admin: 04/02/18 10:10 Dose: Not Given - Exam General: Reports: Alert, Cooperative, No Acute Distress HEENT: Reports: Mucous Membr. Moist/[place] Neck: Reports: Supple, Trachea Midline, No Thyromegaly. Denies: Lymphadenopathy Lungs: Reports: Clear to Auscultation, Normal Respiratory Effort Cardiovascular: Reports: Regular Rate, Regular Rhythm, No Murmurs GI/Abdominal Exam: Normal Bowel Sounds, Soft, Non-Tender, No Organomegaly, No Distention, No Mass Extremities: Non-Tender, No Pedal Edema Skin: Reports: Warm, Dry, Intact
[2018-04-03 09:57] VITALS: BP 159/68
== END 2018-04-03 10:12 | disposition swing bed (61) | DRG 291 ==
LOC: VM.ED 15:37 → VM.MS 17:30
PROVIDERS: ADMIT Internal Medicine; ATTEND Internal Medicine
DX: I13.0 Hypertensive heart and chronic kidney disease with heart failure and stage 1 through stage 4 chronic kidney disease, or unspecified chronic kidney disease (principal); I50.9 Heart failure, unspecified; I50.33 Acute on chronic diastolic (congestive) heart failure; I25.2 Old myocardial infarction; I34.0 Nonrheumatic mitral (valve) insufficiency; N17.9 Acute kidney failure, unspecified; K59.09 Other constipation; K21.9 Gastro-esophageal reflux disease without esophagitis; K44.9 Diaphragmatic hernia without obstruction or gangrene; E87.6 Hypokalemia; N18.9 Chronic kidney disease, unspecified; N18.3 Chronic kidney disease, stage 3 (moderate); I16.0 Hypertensive urgency; J45.909 Unspecified asthma, uncomplicated; K27.9 Peptic ulcer, site unspecified, unspecified as acute or chronic, without hemorrhage or perforation; G20 Parkinson's disease; D50.9 Iron deficiency anemia, unspecified; M54.16 Radiculopathy, lumbar region; K59.00 Constipation, unspecified; F41.9 Anxiety disorder, unspecified; T39.395A Adverse effect of other nonsteroidal anti-inflammatory drugs [NSAID], initial encounter; I25.10 Atherosclerotic heart disease of native coronary artery without angina pectoris; E53.8 Deficiency of other specified B group vitamins; R73.03 Prediabetes; Z79.899 Other long term (current) drug therapy; Z88.0 Allergy status to penicillin; Z88.8 Allergy status to other drugs, medicaments and biological substances; M85.80 Other specified disorders of bone density and structure, unspecified site
CPT/HCPCS: 36415; 51702; 51798; 71045; 80048; 80053; 81001; 82550; 82962; 83735; 83880; 84100; 84484; 85025; 92526-GN; 92610-GN; 93005; 93010; 94760; 97035-GP; 97110-GP; 97116-GP; 97161-GP; 97165-GO; 99284-GF-25; 99285; A9270-GY; J1650; J1940; J7050

== ENCOUNTER 2018-04-03 09:21 | Inpatient (IN) | payer MEDICARE, OTHER ==
[2018-04-03] MEDS ORDERED: LEVALBUTEROL TARTRATE INH PRN (09:49)
--- NOTE | 2018-04-03 09:55 | PCM.HP ---
H&P History of Present Illness - General Date of Service: 04/03/18 Admit Problem/Dx: Admission Diagnosis/Problem Admission Diagnosis/Problem Weakness Source of Information: Patient History Limitations: Reports: No Limitations - History of Present Illness Initial Comments - Free Text/Narative: Ms. Parker is a 72 yo female who is admitted to swing bed today for strengthening after an acute hospitalization for CHF exacerbation and acute on chronic MICHELLE. She was initially admitted to [facility] on 03/30 for CHF exacerbation after presenting with shortness of breath and weight gain. She had been treated with IV lasix, which resulted in adequate diuresis and return of weight toward baseline. Her shortness of breath also resolved. However, it was noted on 04/02 that her creatinine was up from prior. This was felt to be multifactorial (diuresis, NSAID's, urinary retention). Her NSAID's and lasix were held and a urinary catheter was placed. Her creatinine was improved this am and it was felt she was appropriate for transition to swing bed. She had already been evaluated by PT who felt she would benefit from strengthening prior to return home; OT will evaluate next week. The patient denies any concerns this morning. She denies any shortness of breath. She is planning on getting up to the chair today. She is not happy that the catheter is in place but understands the need for this. She is eating and drinking well. She is frustrated with her fluid restriction and the dietary restrictions related to her GERD but she is following nursing instructions without too much issue. No other concerns. - Related Data Allergies/Adverse Reactions: Allergies Allergy/AdvReac Type Severity Reaction Status Date / Time acetaminophen [From Tylenol] Allergy Edema Verified 03/30/18 18:06 aspirin Allergy Cannot Verified 03/30/18 18:06 Remember Beef Containing Products Allergy Cannot Verified 03/30/18 18:06 Remember fluticasone [From Flonase] Allergy Nose Bleeds Verified 03/30/18 18:06 Latex, Natural Rubber Allergy Rash Verified 03/30/18 18:06 lisinopril Allergy Edema Verified 03/30/18 18:06 nickel [Nickel] Allergy Rash Verified 03/30/18 18:06 nystatin Allergy Hives Verified 03/30/18 18:06 peanut Allergy Cannot Verified 03/30/18 18:06 Remember Penicillins Allergy Itching Verified 03/30/18 18:06 red dye Allergy Cannot Verified 03/30/18 18:06 Remember Sulfa (Sulfonamide Allergy Cannot Verified 03/30/18 18:06 Antibiotics) Remember zinc Allergy Hives Verified 03/30/18 18:06 albuterol AdvReac Tremors Verified 03/30/18 18:06 codeine AdvReac Hallucinati Verified 03/30/18 18:06 ons diphenhydramine HCl AdvReac Headache Verified 03/30/18 18:06 [From Benadryl] prednisone AdvReac Excitabilit Verified 03/30/18 18:06 y molds Allergy Cannot Uncoded 03/30/18 18:06 Remember MSG Allergy Cannot Uncoded 03/30/18 18:06 Remember pollen Allergy Cannot Uncoded 03/30/18 18:06 Remember Home Medications: Home Meds atorvaSTATin [Lipitor] 10 mg PO BEDTIME 10/15/13 [History] Aspirin [Aspirin EC] 325 mg PO DAILY 10/17/13 [History] Levalbuterol Tartrate [Xopenex HFA] 2 puff INH Q4HR PRN 10/17/13 [History] ClonazePAM [KlonoPIN] 0.25 mg PO BID 10/18/17 [History] hydrALAZINE [Apresoline] 10 mg PO BID 10/18/17 [History] Metoprolol Tartrate [Lopressor] 50 mg PO BID 10/20/17 [History] Diclofenac Sodium [Voltaren] 2 g TOP BID 01/22/18 [History] Furosemide [Lasix] 10 mg PO DAILY 01/22/18 [History] Alclometasone Dipropionate 1 applic TOP BID 03/25/18 [History] Esomeprazole Magnesium [Nexium] 20 mg PO DAILY 03/30/18 [History] Linaclotide [Linzess] 145 mcg PO DAILY 03/30/18 [History] Nystatin 1 gm TP TID 03/30/18 [History] Breo 1 puff INH DAILY 04/03/18 [Rx] Magnesium Hydroxide [Milk of Magnesia] 30 ml PO DAILY cup 04/03/18 [Rx] Past Medical History HEENT History: Reports: Cataract, Hard of Hearing, Other (See Below) Other HEENT History: myopia. presbyopia. hearing loss Cardiovascular History: Reports: CAD, High Cholesterol, Hypertension, [place], Other (See Below) Other Cardiovascular History: angioedema. mitral regurgitation Respiratory History: Reports: Asthma, Other (See Below) Other Respiratory History: RAD. cough Gastrointestinal History: Reports: Chronic Constipation, GERD, Hiatal Hernia, Other (See Below) Other Gastrointestinal History: BLOOD IN STOOL Genitourinary History: Reports: Renal Disease, Other (See Below) Other Genitourinary History: chronic renal insufficiency VISUAL DESIGN LEAD History: Reports: Musculoskeletal History: Reports: Other (See Below) Other Musculoskeletal History: tremor. osteopenia. RIGHT HIP PAIN. CHRONIC FATIGUE Neurological History: Reports: Parkinson's, Other (See Below) Other Neuro History: tremors. relates dx with parkinsons on 10/16 Psychiatric History: Reports: Anxiety, Other (See Below) Other Psychiatric History: personality disorder Endocrine/Metabolic History: Reports: Osteopenia, Vitamin D Deficiency, Other ( See Below) Other Endocrine/Metabolic History: B12 deficiency. prediabetes Hematologic History: Reports: Anemia, B12 Deficiency, Iron Deficiency Immunologic History: Reports: None Oncologic (Cancer) History: Reports: Cervix Dermatologic History: Reports: Urticaria, Other (See Below) Other Dermatologic History: JOSI RASH OF GROIN - Past Surgical History HEENT Surgical History: Reports: Other (See Below) Other HEENT Surgeries/Procedures: dental Cardiovascular Surgical History: Reports: Coronary Artery Bypass GI Surgical History: Reports: Appendectomy, Colonoscopy Female Surgical History: Reports: Tubal Ligation Musculoskeletal Surgical History: Reports: None Social & Family History - Family History Cardiac: Reports: CAD Neurological: Reports: Parkinson's Endocrine/Metabolic: Reports: Diabetes, type II - Tobacco Use Smoking Status *Q: Never Smoker - Caffeine Use Caffeine Use: Reports: None - Alcohol Use Alcohol Use History: No - Recreational Drug Use Recreational Drug Use: No - Living Situation & Occupation Living situation: Reports: , with Family (her daughter) H&P Review of Systems - Review of Systems: Review Of Systems: See Below General: Reports: No Symptoms HEENT: Reports: No Symptoms Pulmonary: Reports: No Symptoms Cardiovascular: Reports: No Symptoms Gastrointestinal: Reports: No Symptoms Genitourinary: Reports: No Symptoms Musculoskeletal: Reports: No Symptoms Skin: Reports: No Symptoms Psychiatric: Reports: No Symptoms Neurological: Reports: No Symptoms Exam - Exam Exam: See Below - Exam General: Alert, Cooperative HEENT: Conjunctiva Clear, Mucosa Moist & [place], Posterior Pharynx Clear, Pupils Equal, Pupils Reactive Neck: Supple, Trachea Midline. No: Lymphadenopathy, Thyromegaly Lungs: Clear to Auscultation, Normal Respiratory Effort Cardiovascular: Regular Rate, Regular Rhythm, Normal S1, Normal S2, Systolic Murmur GI/Abdominal Exam: Normal Bowel Sounds, Soft, Non-Tender, No Organomegaly, No Distention, No Mass Extremities: Non-Tender, No Pedal Edema, Normal Capillary Refill Skin: Warm, Dry, Intact - Problem List (1) Generalized weakness SNOMED Code(s): 16158034 ICD Code: R53.1 - WEAKNESS Status: Acute Current Visit: No Problem Details: - Secondary to acute hospitalization as well as possible underlying Parkinson's. - PT and OT consults for eval and treat. (2) Acute kidney injury SNOMED Code(s): 88482357 ICD Code: N17.9 - ACUTE KIDNEY FAILURE, UNSPECIFIED Status: Acute Current Visit: No Problem Details: - Acute hospitalization complicated by acute on chronic renal injury, which is felt to be multifactorial, including urinary retention, NSAID use for back pain, and diuresis. - Creatinine improved today after urinary catheter placement yesterday as well as discontinuation of the lasix and NSAID's. - Catheter will remain in place overnight. 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 - Recheck BMP in the am. (3) Congestive heart failure SNOMED Code(s): 01487277 ICD Code: I50.9 - HEART FAILURE, UNSPECIFIED Status: Acute Current Visit : No Problem Details: - Patient initially admitted with CHF exacerbation. - Symptoms resolved and weight actually lower than baseline today. - Will continue to hold lasix. She maybe would not even need this at home if she was adherent to outpatient fluid and salt restriction. - D/C potassium as this was normal and she is not currently on lasix. - Outpatient Echo is already scheduled for follow-up. Qualifiers: Heart failure type: diastolic Heart failure chronicity: acute on chronic Qualified Code(s): I50.33 - Acute on chronic diastolic (congestive) heart failure (4) Asthma SNOMED Code(s): 881450155 ICD Code: J45.909 - UNSPECIFIED ASTHMA, UNCOMPLICATED Status: Chronic Current Visit: No Problem Details: - No current symptoms of an asthma exacerbation. - Continue home inhalers. Qualifiers: Asthma severity: moderate Asthma persistence: persistent Asthma complication type: uncomplicated Qualified Code(s): J45.40 - Moderate persistent asthma, uncomplicated (5) Constipation SNOMED Code(s): 16206470 ICD Code: K59.00 - CONSTIPATION, UNSPECIFIED Status: Chronic Current Visit: No Problem Details: - Patient has had intermittent issues with this but has a bowel regimen ordered. - Continue current management. Will adjust as indicated. Qualifiers: Constipation type: unspecified constipation type Qualified Code(s): K59.00 - Constipation, unspecified (6) Anemia of chronic disorder SNOMED Code(s): 576651864 ICD Code: D63.8 - ANEMIA IN OTHER CHRONIC DISEASES CLASSIFIED ELSEWHERE Status: Chronic Current Visit: No Problem Details: - Hemoglobin stable during acute hospitalization. - Recheck can be deferred to hospital follow-up unless change in clinical status occurs. (7) Back pain SNOMED Code(s): 269441719 ICD Code: M54.9 - DORSALGIA, UNSPECIFIED Status: Chronic Priority: Low Current Visit: No Problem Details: - No complaints of pain today despite not being on any medications for this specifically. - Will continue to monitor. Qualifiers: Back pain location: low back pain Chronicity: acute Back pain laterality : midline Sciatica presence: without sciatica Qualified Code(s): M54.5 - Low back pain (8) CAD (coronary artery disease) SNOMED Code(s): 65066224 ICD Code: I25.10 - ATHSCL HEART DISEASE OF [place] CORONARY ARTERY W/O ANG PCTRS Status: Chronic Current Visit: No Problem Details: - Patient has no acute symptoms for this. - Home medications continued. Qualifiers: Coronary Disease-Associated Artery/Lesion type: [place] artery [place] vs. transplanted heart: [place] heart Associated angina: without angina Qualified Code(s): I25.10 - Atherosclerotic heart disease of [place] coronary artery without angina pectoris (9) Gastroesophageal reflux disease SNOMED Code(s): 392336234 ICD Code: K21.9 - GASTRO-ESOPHAGEAL REFLUX DISEASE WITHOUT ESOPHAGITIS Status: Chronic Current Visit: No Problem Details: - No acute concerns. - Continue home medications. Qualifiers: Esophagitis presence: esophagitis presence not specified Qualified Code(s) : K21.9 - Gastro-esophageal reflux disease without esophagitis (10) Hypertension SNOMED Code(s): 22919388 ICD Code: I10 - ESSENTIAL (PRIMARY) HYPERTENSION Status: Chronic Current Visit: No Problem Details: - Blood pressure has been elevated intermittently but overall at goal. - Home medications will be continued. Qualifiers: Hypertension type: essential hypertension Qualified Code(s): I10 - Essential (primary) hypertension (11) Parkinson disease SNOMED Code(s): 69818568 ICD Code: G20 - PARKINSON'S DISEASE Status: Chronic Current Visit: No Problem Details: - Presumed diagnosis based on patient's physical exam; has not been formally diagnosed. - Likely contributes to her weakness and difficulty ambulating. Problem List Initiated/Reviewed/Updated: Yes Orders Last 24hrs: Active Orders 24 hr Category Date Time Status Admission Status [Patient Status] [ADT] Routine ADT 04/03/18 09:22 Active Notify Provider Vital Signs [RC] ASDIRECTED Care 04/03/18 09:48 Active Oxygen Therapy [RC] PRN Care 04/03/18 09:41 Active Up With Assistance [RC] ASDIRECTED Care 04/03/18 09:46 Active Urinary Catheter Assessment [RC] ASDIRECTED Care 04/03/18 09:46 Active VTE/DVT Education [RC] PER UNIT ROUTINE Care 04/03/18 09:41 Active Vital Signs [RC] PER UNIT ROUTINE Care 04/03/18 09:41 Active OT Evaluation and Treatment [CONS] Routine Cons 04/03/18 09:46 Active PT Evaluation and Treatment [CONS] Routine Cons 04/03/18 09:46 Active 2 Gram Sodium Diet [DIET] Diet 04/03/18 Lunch Active Aspirin [Aspirin EC] Med 04/04/18 08:00 Ordered 325 mg PO DAILY ClonazePAM [KlonoPIN] Med 04/03/18 20:00 Ordered 0.25 mg PO BID Esomeprazole Magnesium [Nexium] Med 04/04/18 08:00 Ordered 20 mg PO DAILY Levalbuterol Tartrate [Xopenex HFA] Med 04/03/18 09:49 Ordered 2 puff INH Q4HR PRN Magnesium Hydroxide [Milk of Magnesia] Med 04/04/18 08:00 Ordered 30 ml PO DAILY Metoprolol Tartrate [Lopressor] Med 04/03/18 20:00 Ordered 50 mg PO BID Nystatin [Nystatin] Med 04/03/18 12:00 Ordered 1 gm TP TID atorvaSTATin [Lipitor] Med 04/03/18 20:00 Ordered 10 mg PO BEDTIME hydrALAZINE [Apresoline] Med 04/03/18 20:00 Ordered 10 mg PO BID Sequential Compression Device [OM.PC] Routine Oth 04/03/18 09:46 Ordered Resuscitation Status Routine Resus Stat 04/03/18 09:41 Ordered Medication Orders Clonazepam (Klonopin) 0.25 mg PO BID FADUMO Hydralazine HCl (Apresoline) 10 mg PO BID FADUMO Magnesium Hydroxide (Milk Of Magnesia) 30 ml PO DAILY FADUMO Metoprolol Tartrate (Lopressor) 50 mg PO BID FADUMO Non-Formulary Medication (Aspirin [Aspirin Ec]) 325 mg PO DAILY FADUMO Non-Formulary Medication (Atorvastatin [Lipitor]) 10 mg PO BEDTIME FADUMO Non-Formulary Medication (Esomeprazole Magnesium [Nexium]) 20 mg PO DAILY FADUMO Non-Formulary Medication (Levalbuterol Tartrate [Xopenex Hfa]) 2 puff INH Q4HR PRN PRN Reason: Shortness of Breath Non-Formulary Medication (Nystatin [Nystatin]) 1 gm TP TID FADUMO Assessment/Plan Comment:: See details under problem list above. 72 yo female admitted to swing bed for strengthening after acute hospitalization for CHF exacerbation and acute on chronic MICHELLE. Is doing well today and denies any symptoms. Labs improved today as well. Patient transitioned from acute today. Will remain on swing bed until cleared for discharge by PT and OT. PT and OT consults ordered. Home medications with the exception of lasix continued. Will recheck BMP and follow- up on weight tomorrow before deciding if the lasix will be continued or not. VTE prophylaxis with SCD's; no pharmacologic prophylaxis given she received lovenox prior to MICHELLE. Patient wishes to be full code.
[2018-04-03] MEDS ORDERED: NYSTATIN 1 GM TP SCH (12:00)
[2018-04-03] MEDS: hydrALAZINE 10 MG Tab PO SCH (21:20)
[2018-04-03] MEDS: ClonazePAM 0.5 MG Tab PO SCH (21:20)
[2018-04-03] MEDS: atorvaSTATin 10 MG Tab PO SCH (21:22)
[2018-04-03] MEDS: Metoprolol Tartrate 50 MG Tab PO SCH (21:24)
[2018-04-04] MEDS: Omeprazole 20 MG Cap.CR PO SCH (06:51)
[2018-04-04] MEDS: Metoprolol Tartrate 50 MG Tab PO SCH ×2 (08:04→20:31)
[2018-04-04] MEDS: Aspirin 325 MG Tab.EC PO SCH (08:04)
[2018-04-04] MEDS: ClonazePAM 0.5 MG Tab PO SCH ×2 (08:05→20:33)
[2018-04-04] MEDS: Magnesium Hydroxide 400 MG/5 ML Susp 30 ML Cup PO SCH (08:05)
[2018-04-04] MEDS: hydrALAZINE 10 MG Tab PO SCH ×2 (08:05→20:32)
[2018-04-04] MEDS: BREO ELLIPTA INH SCH (08:06)
--- NOTE | 2018-04-04 09:25 | PCM.SN ---
- Free Text/Narrative Note: Patient doing well this morning. Labs improved. Weight continues to downtrend. Will continue to hold lasix. Remove catheter later today with voiding trial. Nursing to do post-void residuals and I/O cath if >500. If needed x 2, then will replace whiting catheter. No other changes today.
[2018-04-04] MEDS: atorvaSTATin 10 MG Tab PO SCH (20:32)
[2018-04-05] MEDS: Omeprazole 20 MG Cap.CR PO SCH (06:02)
[2018-04-05] MEDS: hydrALAZINE 10 MG Tab PO SCH ×2 (07:25→20:23)
[2018-04-05] MEDS: Magnesium Hydroxide 400 MG/5 ML Susp 30 ML Cup PO SCH (07:25)
[2018-04-05] MEDS: Metoprolol Tartrate 50 MG Tab PO SCH ×2 (07:25→20:22)
[2018-04-05] MEDS: Aspirin 325 MG Tab.EC PO SCH (07:25)
[2018-04-05] MEDS: ClonazePAM 0.5 MG Tab PO SCH ×2 (07:25→20:23)
[2018-04-05] MEDS: BREO ELLIPTA INH SCH (07:26)
[2018-04-05] MEDS ORDERED: Barium Sulfate 60% w/w Esophageal Crm 454 GM Tube PO ONE (10:15)
[2018-04-05] MEDS ORDERED: Barium Sulfate 60% w/v Susp 355 ML Bottle ONE (10:15)
--- NOTE | 2018-04-05 19:15 | PN ---
Progress Note for APRIL PUENTES Date: 04/05/2018 Room #: VM.215 SUBJECTIVE: This is a 72-year-old on swing bed, now day #2 after an acute stay for diastolic heart failure exacerbation. She did have an increase in creatinine up to 2.1. She was found to be in acute urinary retention on Thursday. We did place a catheter, we tried to remove over the weekend, but she did have postvoid residuals over 500, so she has had straight cath and eventually a Hammer was placed today. She has been up. She has been working with therapy. She states her back pain got better after the Hammer was put in, but she is still having difficulty lifting her legs. She has had a CT of the abdomen last fall. She has had an MRI recently. She does have the possibility of underlying Parkinson's, but the cause for her urinary retention really isn't clear. Otherwise, she has not had any shortness of breath. OBJECTIVE: Vital Signs: Her weight is 85.3 kg. She has been off Lasix. Her temperature 98.6, pulse 66, blood pressure 153/70, respiratory rate 18, and O2 94% on room air. General: She is in no acute distress. Heart: Regular rate and rhythm with murmur. Lungs: Sounds are clear to auscultation bilaterally without crackles or wheezes. Abdomen: Has positive bowel sounds. Soft and nontender. She did have a mid abdominal incision. She has had previous tubal ligation surgery and an appendectomy, but still has her uterus. LABORATORY WORK: Lab work includes her to have a creatinine of 1.6. Baseline on admission was around 1.3. ASSESSMENT: 1. Urinary retention, unknown etiology. We will do a pelvic ultrasound this week. 2. Acute on chronic renal failure, improving. NSAIDs are stopped. Hammer is in place. 3. Diastolic heart failure exacerbation. Given elevated blood pressures, I am going to restart her on Lasix 20 mg daily. 4. Essential hypertension. 5. Constipation. Bowels are working now. 6. History of asthma. 7. Gastroesophageal reflux disease with a hiatal hernia. 8. Mild anemia. 9. Back pain with radiculopathy. She is working with Physical Therapy. 10.Coronary artery disease without angina. 11.Probable underlying Parkinson's. She had a swallow evaluation. She said she did quite well on it today. I have not seen the official results yet. PLAN: At this point, the patient will continue swing bed for PT, OT, and speech cares. Pelvic ultrasound this week. We will restart Lasix 20 mg daily and repeat a creatinine on . MKA: 04/05/2018 17:09:43 MODL: 04/05/2018 19:06:23 /[id number]
[2018-04-05] MEDS: atorvaSTATin 10 MG Tab PO SCH (20:23)
[2018-04-06] MEDS: Omeprazole 20 MG Cap.CR PO SCH (06:38)
[2018-04-06] MEDS: Metoprolol Tartrate 50 MG Tab PO SCH ×2 (07:52→19:54)
[2018-04-06] MEDS: Aspirin 325 MG Tab.EC PO SCH (07:52)
[2018-04-06] MEDS: hydrALAZINE 10 MG Tab PO SCH ×2 (07:52→19:54)
[2018-04-06] MEDS: ClonazePAM 0.5 MG Tab PO SCH ×2 (07:53→19:50)
[2018-04-06] MEDS: Furosemide 20 MG Tab PO SCH (07:53)
[2018-04-06] MEDS: BREO ELLIPTA INH SCH (07:54)
[2018-04-06] MEDS: Magnesium Hydroxide 400 MG/5 ML Susp 30 ML Cup PO SCH ×2 (07:54→07:58)
[2018-04-06] MEDS: atorvaSTATin 10 MG Tab PO SCH (19:52)
[2018-04-07] MEDS: Omeprazole 20 MG Cap.CR PO SCH (06:16)
[2018-04-07] MEDS: Aspirin 325 MG Tab.EC PO SCH (07:40)
[2018-04-07] MEDS: Furosemide 20 MG Tab PO SCH (07:40)
[2018-04-07] MEDS: Metoprolol Tartrate 50 MG Tab PO SCH ×2 (07:40→20:36)
[2018-04-07] MEDS: hydrALAZINE 10 MG Tab PO SCH ×2 (07:41→20:37)
[2018-04-07] MEDS: ClonazePAM 0.5 MG Tab PO SCH ×2 (07:42→20:36)
[2018-04-07] MEDS: Magnesium Hydroxide 400 MG/5 ML Susp 30 ML Cup PO SCH (07:42)
[2018-04-07] MEDS: BREO ELLIPTA INH SCH (07:43)
[2018-04-07] MEDS: atorvaSTATin 10 MG Tab PO SCH (20:37)
[2018-04-08] MEDS: Omeprazole 20 MG Cap.CR PO SCH (06:10)
[2018-04-08] MEDS: Aspirin 325 MG Tab.EC PO SCH (07:38)
[2018-04-08] MEDS: hydrALAZINE 10 MG Tab PO SCH ×2 (07:38→19:55)
[2018-04-08] MEDS: ClonazePAM 0.5 MG Tab PO SCH ×2 (07:38→19:57)
[2018-04-08] MEDS: Metoprolol Tartrate 50 MG Tab PO SCH ×2 (07:39→19:56)
[2018-04-08] MEDS: Magnesium Hydroxide 400 MG/5 ML Susp 30 ML Cup PO SCH (07:40)
[2018-04-08] MEDS: BREO ELLIPTA INH SCH (07:40)
[2018-04-08] MEDS: Furosemide 20 MG Tab PO SCH (07:40)
[2018-04-08] MEDS ORDERED: Furosemide 20 MG Tab PO ONE (09:45)
[2018-04-08] MEDS: Ciprofloxacin 250 MG Tab PO SCH ×2 (13:43→19:55)
[2018-04-08] MEDS: atorvaSTATin 10 MG Tab PO SCH (19:56)
[2018-04-09 05:28] VITALS: BP 131/72
[2018-04-09] MEDS: Omeprazole 20 MG Cap.CR PO SCH (06:04)
[2018-04-09] MEDS: Ciprofloxacin 250 MG Tab PO SCH (06:04)
[2018-04-09] MEDS ORDERED: Furosemide 40 MG Tab PO SCH (08:00)
[2018-04-09] MEDS: Metoprolol Tartrate 50 MG Tab PO SCH (08:36)
[2018-04-09] MEDS: Aspirin 325 MG Tab.EC PO SCH (08:37)
[2018-04-09] MEDS: ClonazePAM 0.5 MG Tab PO SCH (08:37)
[2018-04-09] MEDS: hydrALAZINE 10 MG Tab PO SCH (08:37)
[2018-04-09] MEDS: Magnesium Hydroxide 400 MG/5 ML Susp 30 ML Cup PO SCH (08:38)
[2018-04-09] MEDS: BREO ELLIPTA INH SCH (08:38)
--- NOTE | 2018-04-09 23:16 | DISCH ---
DATE OF SWING BED ADMISSION: 04/03/2018 PRIMARY DISCHARGE DIAGNOSES: 1. Acute on chronic diastolic heart failure exacerbation, EF 65%. 2. Urinary retention, unknown etiology. Pelvic ultrasound pending. Improved, able to remove her catheter on discharge. Postvoid residual was down to just 200. 3. Urinary tract infection with dysuria, improving, probably related to the Hammer. She is growing Gram-negative rods on discharge. 4. Possible underlying Parkinson's. 5. Constipation, improved with milk of magnesia. 6. Essential hypertension. 7. History of asthma. 8. Gastroesophageal reflux disease. 9. Back pain with radiculopathy, improved. 10.Mild anemia. 11.Coronary artery disease, stable without angina. 12.Acute on chronic renal failure, likely due to urinary retention, improving with creatinine back down to 1.4 on her swing bed discharge. Peak creatinine was 2.1 during her stay. Her baseline creatinine recently in the clinic was 1.3 in December, so acute on chronic meaning like chronic kidney disease stage III. REASON FOR ADMISSION: This is a 72-year-old female who was originally admitted for acute cares, was improving with diuresis, but unfortunately her creatinine continued to increase. Initially was bladder scanned and was okay, but later in her stay as she had significant residuals over 500 on multiple scans even after having large amounts of incontinence of urine. Her highest residual was at least 700. Hammer was kept in place for several days, but then we decided to try another voiding trial. The patient did better and the last residual was around 200 early a.m. before discharge. The patient was hopeful to keep the Hammer out. She had a previous CT scan last fall for pain, which did not show any cause for urinary retention. She has been off narcotic medications. Otherwise, she had an MRI also which did not show any back lesions that would be severe enough to cause urinary retention. Seemed to get better when she was up and more mobile. She was working with therapies. OT was helping her to put on her compression socks. This significantly helped he leg swelling. She did have a swallow evaluation with speech which showed just to be at some mild risk for aspiration and overall was swallowing good and had no further choking episodes. She was walking with therapies and overall was improved and ready for discharge. The patient, however, does refuse home health on discharge. She elects to return to her previous outpatient therapy. DISCHARGE PLANS AND INSTRUCTIONS: She is going to follow up with Dr. Hogan on 04/15 at 3:20 with lab prior, a kidney test, and a UA. She will take the Cipro which she was started on yesterday for a total of three days. Otherwise, Urology consultation on 04/29 at [facility]. Hammer was left out. Pelvic ultrasound on Thursday at 9:30. Heart echo test on 04/19. She will leave Lasix at 40 mg daily on discharge. She was actually taking only like 10 mg daily prior. PHYSICAL EXAMINATION: Vital Signs: On discharge, her examination was a weight of 83.4 kg, temperature 98, pulse 64, blood pressure 131/72, respiratory rate 20, O2 at 95% on room air. General: She is in no acute distress. Heart: Regular rate and rhythm with murmur. Respiratory: Lung sounds were clear to auscultation bilaterally without crackles or wheezes. Abdomen: Positive bowel sounds. Soft and nontender. Extremities: Warm and dry. She has just trace edema. Mental Status: She is alert she is orientated x3. Overall, her weight is down at least 5 pounds from her acute admission. MKA: 04/09/2018 17:15:24 MODL: 04/09/2018 22:35:51 /[id number]
== END 2018-04-09 13:40 | disposition home or self-care (01) | DRG 947 ==
LOC: VM.MS 10:12
PROVIDERS: ADMIT Family Medicine; ATTEND Internal Medicine
DX: R53.1 Weakness (principal); I50.33 Acute on chronic diastolic (congestive) heart failure; I13.0 Hypertensive heart and chronic kidney disease with heart failure and stage 1 through stage 4 chronic kidney disease, or unspecified chronic kidney disease; N18.9 Chronic kidney disease, unspecified; J45.909 Unspecified asthma, uncomplicated; K59.09 Other constipation; M54.5 Low back pain; D63.8 Anemia in other chronic diseases classified elsewhere; I25.10 Atherosclerotic heart disease of native coronary artery without angina pectoris; K21.9 Gastro-esophageal reflux disease without esophagitis; G20 Parkinson's disease; E55.9 Vitamin D deficiency, unspecified; K44.9 Diaphragmatic hernia without obstruction or gangrene; Z79.899 Other long term (current) drug therapy; Z79.82 Long term (current) use of aspirin; Z91.040 Latex allergy status; Z88.2 Allergy status to sulfonamides; Z91.09 Other allergy status, other than to drugs and biological substances; I25.2 Old myocardial infarction
CPT/HCPCS: 36415; 51702; 51798; 74230; 80048; 81001; 82962; 85025; 87086; 87088; 87186; 92526-GN; 92611-GN; 97110-GO; 97110-GP; 97116-GP; 97530-GP; 97535-GO; A9270-GY

== ENCOUNTER 2020-08-20 02:11 | Emergency (ER) | payer OTHER, MEDICARE ==
[2020-08-20] MEDS: Ketorolac 30 MG/ML SDV IM ONE (02:38)
--- NOTE | 2020-08-20 03:06 | EDM.PDOC ---
ED HPI GENERAL MEDICAL PROBLEM - General Chief Complaint: Back Pain or Injury Stated Complaint: Low back pain Time Seen by Provider: 08/20/20 02:11 Source of Information: Reports: Patient History Limitations: Reports: No Limitations - History of Present Illness INITIAL COMMENTS - FREE TEXT/NARRATIVE: Pt. presents to ER from [facility], requesting a "pain shot". Pt. has a longstanding history of low back pain, and states that the discomfort in her low back had been getting worse this evening. Denies any falls. No trauma to the area. Denies any numbness/tingling in her lower extremities. Pt. denies any saddle anesthesia or incontinence. Pt. states that this pain is similar to the discomfort she has had in the past. Denies any fever or chills. She states that she does not tolerate morphine or other opiates, and requests "what they gave me last time". Onset Date: 08/19/20 Location: Reports: Back - Related Data Allergies Allergy/AdvReac Type Severity Reaction Status Date / Time codeine Allergy Severe Anaphylaxis Verified 10/11/18 11:04 peanut Allergy Severe anaphylaxis Verified 10/11/18 11:04 fluticasone [From Flonase] Allergy Nose Bleeds Verified 10/11/18 07:45 fluticasone furoate Allergy Other Verified 10/11/18 11:04 [From Breo Ellipta] Latex, Natural Rubber Allergy Hives Verified 10/11/18 11:04 nickel [Nickel] Allergy Rash Verified 10/11/18 07:45 nystatin Allergy Hives Verified 10/11/18 07:45 Penicillins Allergy Itching Verified 10/11/18 07:45 red dye Allergy Hives Verified 10/11/18 11:04 Sulfa (Sulfonamide Allergy Cannot Verified 10/11/18 07:45 Antibiotics) Remember vilanterol Allergy Other Verified 10/11/18 11:04 [From Breo Ellipta] zinc Allergy Hives Verified 10/11/18 07:45 acetaminophen [From Tylenol] AdvReac Edema Verified 10/11/18 11:06 albuterol AdvReac Tremors Verified 10/11/18 07:45 diphenhydramine HCl AdvReac Headache Verified 10/11/18 07:45 [From Benadryl] lisinopril AdvReac Edema Verified 10/11/18 11:04 prednisone AdvReac Excitabilit Verified 10/11/18 07:45 y molds Allergy Cannot Uncoded 10/11/18 07:45 Remember MSG Allergy Cannot Uncoded 10/11/18 07:45 Remember pollen Allergy Cannot Uncoded 10/11/18 07:45 Remember Home Meds: Home Meds Levalbuterol Tartrate [Xopenex HFA] 2 puff PO Q4HR PRN 10/17/13 [History] hydrALAZINE [Apresoline] 10 mg PO BID 10/18/17 [History] Esomeprazole Magnesium [Nexium] 20 mg PO DAILY 03/30/18 [History] ClonazePAM [KlonoPIN] 0.25 mg PO BID 09/24/18 [History] Furosemide [Lasix] 20 mg PO DAILY 09/24/18 [History] Aspirin [Aspirin EC] 325 mg PO DAILY 10/11/18 [History] Ergocalciferol (Vitamin D2) [Vitamin D2] 50,000 units PO WEEKLY 10/11/18 [History] Docusate Sodium [Colace] 100 mg PO BID PRN #60 cap 10/17/18 [Rx] Ondansetron [Zofran ODT] 4 mg PO Q6H PRN #20 tab.dis 10/17/18 [Rx] DULoxetine [Cymbalta] 20 mg PO DAILY #30 cap 10/18/18 [Rx] amLODIPine Besylate [Amlodipine Besylate] 5 mg PO DAILY #30 tablet 10/18/18 [Rx] Acetaminophen [Tylenol] 325 mg PO Q4H PRN 12/07/18 [History] Aspirin 325 mg PO BID PRN 12/07/18 [History] Bisacodyl 10 mg RC DAILY PRN 12/07/18 [History] Carbidopa/Levodopa [Sinemet 25-100 mg Tablet] 1 each PO TID 12/07/18 [History] EPINEPHrine [Epinephrine] 1 unit IM ASDIRECTED PRN 12/07/18 [History] Ferrous Sulfate [Feosol] 325 mg PO Q2D 12/07/18 [History] Past Medical History HEENT History: Reports: Cataract, Hard of Hearing, Other (See Below) Other HEENT History: myopia. presbyopia. 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 angioedema. mitral regurgitation Respiratory History: Reports: Asthma, Other (See Below) Other Respiratory History: RAD. 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 osteopenia. RIGHT HIP PAIN. CHRONIC FATIGUE Neurological History: Reports: Parkinson's, Other (See Below) Other Neuro History: tremors. relates dx with parkinsons on 10/16 Psychiatric History: Reports: Anxiety, Other (See Below) Other Psychiatric History: personality disorder Endocrine/Metabolic History: Reports: Osteopenia, Vitamin D Deficiency, Other (See Below) Other Endocrine/Metabolic History: B12 deficiency. prediabetes Hematologic History: Reports: Anemia, B12 Deficiency, Iron Deficiency Immunologic History: Reports: None Oncologic (Cancer) History: Reports: Cervix Dermatologic History: Reports: Urticaria, Other (See Below) Other Dermatologic History: JOSI RASH OF GROIN - Past Surgical History Head Surgeries/Procedures: Reports: None HEENT Surgical History: Reports: Other (See Below) Other HEENT Surgeries/Procedures: dental Cardiovascular Surgical History: Reports: Coronary Artery Bypass GI Surgical History: Reports: Appendectomy, Colonoscopy Female Surgical History: Reports: Tubal Ligation Musculoskeletal Surgical History: Reports: None Social & Family History - Family History Family Medical History: Noncontributory Cardiac: Reports: CAD Neurological: Reports: Parkinson's Endocrine/Metabolic: Reports: Diabetes, type II - Caffeine Use Caffeine Use: Reports: None - Living Situation & Occupation Living situation: Reports: , with Family (her daughter) ED [facility] GENERAL - Review of Systems Review Of Systems: See Below Constitutional: Denies: Fever, Chills, Malaise, Weakness, Fatigue HEENT: Reports: No Symptoms Respiratory: Reports: No Symptoms Cardiovascular: Reports: No Symptoms Endocrine: Reports: No Symptoms GI/Abdominal: Reports: No Symptoms : Reports: No Symptoms Musculoskeletal: Reports: Back Pain, Muscle Pain, Muscle Stiffness Skin: Reports: No Symptoms Neurological: Reports: No Symptoms Psychiatric: Reports: No Symptoms Hematologic/Lymphatic: Reports: No Symptoms Immunologic: Reports: No Symptoms ED EXAM, GENERAL - Physical Exam Exam: See Below Exam Limited By: No Limitations General Appearance: Alert, WD/WN, Moderate Distress Back Exam: Normal Inspection, Decreased Range of Motion, Muscle Spasm, Other (Pain in lumbar region with significant muscle spasm noted. No midline discomfort. R lateral lumbar muscles were noted to be extremely tight.) Extremities: Normal Inspection, Normal Range of Motion, No Pedal Edema Neurological: Alert, Oriented, CN II-XII Intact, Normal Cognition, No Motor/Sensory Deficits Course - Orders/Labs/Meds Meds: Medications Discontinued Medications Generic Name Dose Route Start Last Admin Trade Name Heidi PRN Reason Stop Dose Admin Ketorolac Tromethamine 15 mg 08/20/20 02:30 Toradol IM 08/20/20 02:31 ONETIME ONE - Re-Assessments/Exams Free Text/Narrative Re-Assessment/Exam: Medical record reviewed. Pt. has been seen numerous times in ER with complaints of low back pain and has received various medications over the years. It appears that she has been intolerant to opiates. She has had good results with toradol injection in the past. Her last creatinine in clinic this summer was 1.13. Pt. reported significant improvement in her discomfort (10 down to 5) and requested to be discharged. Departure - Departure Time of Disposition: 03:20 Disposition: Home, Self-Care 01 Clinical Impression: Low back pain - Discharge Information Instructions: Chronic Back Pain, [id number] Forms: ED Department Discharge Additional Instructions: Home to rest. Continue with current medications. Tylenol as needed for continued discomfort. Recheck in clinic as needed, sooner if not gradually improving. - Assessment/Plan Plan: Home to rest. Continue with current medications. Tylenol as needed for continued discomfort. Recheck in clinic as needed, sooner if not gradually improving.
[2020-08-20 05:13] VITALS: BP 163/68; PULSE 78
== END 2020-08-20 03:30 | disposition home or self-care (01) ==
LOC: VM.ED 02:11
DX: M54.5 Low back pain (principal); I25.10 Atherosclerotic heart disease of native coronary artery without angina pectoris; E78.00 Pure hypercholesterolemia, unspecified; I25.2 Old myocardial infarction; J45.909 Unspecified asthma, uncomplicated; K21.9 Gastro-esophageal reflux disease without esophagitis; I12.9 Hypertensive chronic kidney disease with stage 1 through stage 4 chronic kidney disease, or unspecified chronic kidney disease; N18.9 Chronic kidney disease, unspecified; F41.9 Anxiety disorder, unspecified; G20 Parkinson's disease; Z88.5 Allergy status to narcotic agent; Z91.010 Allergy to peanuts; Z88.8 Allergy status to other drugs, medicaments and biological substances; Z91.040 Latex allergy status; Z88.0 Allergy status to penicillin; Z91.048 Other nonmedicinal substance allergy status; Z91.041 Radiographic dye allergy status; Z88.2 Allergy status to sulfonamides; Z88.6 Allergy status to analgesic agent; Z79.82 Long term (current) use of aspirin; Z79.899 Other long term (current) drug therapy
CPT/HCPCS: 96372; 99283; 99284; J1885

== ENCOUNTER 2021-04-02 12:31 | Emergency (ER) | payer MEDICARE, OTHER ==
--- NOTE | 2021-04-02 13:09 | EDM.PDOC ---
ED HPI GENERAL MEDICAL PROBLEM - General Chief Complaint: Chest Pain Stated Complaint: CHEST PAIN Time Seen by Provider: 04/02/21 12:45 Source of Information: Reports: Patient History Limitations: Reports: No Limitations - History of Present Illness INITIAL COMMENTS - FREE TEXT/NARRATIVE: Patient has complaints of ongoing chest pain since Thursday but states it really started for 5 days ago. She states it is midsternal radiating to both sides of her arms she rates about a 4 out of 10 that is worse with getting up and walking to the bathroom or turning side to side she says she has been taken Tylenol which alleviates the pain she also says that with her cough the same type of pain occurs in the coughing going on for the last 2 or 3 days as well. She also admits that she has a hiatal hernia that flares up every now and then encounter feels the same way. 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 She also has been having ongoing intermittent headaches mostly over the left occipital area for the last month and a half. She states Tylenol alleviates those they have been occurring about 1-2 times a day and they last for about 10 to 15 minutes. She said she has talked to her primary care providers about these as well. She denies any trauma falls no vision changes no nausea or vomiting no unsteadiness dizziness Duration: Day(s): Location: Reports: Head, Chest, Other (Head she rates about a 6 out of 10, dull pain) Quality: Reports: Dull Severity: Moderate Improves with: Reports: Medication Context: Reports: Activity Associated Symptoms: Reports: Chest Pain, Cough. 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, EKG, IV/IO Middle Chest Pain Score (Numeric/FACES): 8 Posterior Headache Pain Score (Numeric/FACES): 8 - Related Data Allergies Allergy/AdvReac Type Severity Reaction Status Date / Time codeine Allergy Severe Anaphylaxis Verified 04/02/21 13:12 peanut Allergy Severe anaphylaxis Verified 04/02/21 13:12 fluticasone [From Flonase] Allergy Nose Bleeds Verified 04/02/21 13:12 fluticasone furoate Allergy Other Verified 04/02/21 13:12 [From Breo Ellipta] Latex, Natural Rubber Allergy Hives Verified 04/02/21 13:12 nickel [Nickel] Allergy Rash Verified 04/02/21 13:12 nystatin Allergy Hives Verified 04/02/21 13:12 Penicillins Allergy Itching Verified 04/02/21 13:12 red dye Allergy Hives Verified 04/02/21 13:12 Sulfa (Sulfonamide Allergy Cannot Verified 04/02/21 13:12 Antibiotics) Remember vilanterol Allergy Other Verified 04/02/21 13:12 [From Breo Ellipta] zinc Allergy Hives Verified 04/02/21 13:12 acetaminophen [From Tylenol] AdvReac Edema Verified 04/02/21 13:12 albuterol AdvReac Tremors Verified 04/02/21 13:12 diphenhydramine HCl AdvReac Headache Verified 04/02/21 13:12 [From Benadryl] lisinopril AdvReac Edema Verified 04/02/21 13:12 prednisone AdvReac Excitabilit Verified 04/02/21 13:12 y molds Allergy Cannot Uncoded 04/02/21 13:12 Remember MSG Allergy Cannot Uncoded 04/02/21 13:12 Remember pollen Allergy Cannot Uncoded 04/02/21 13:12 Remember Home Meds: Home Meds Levalbuterol Tartrate [Xopenex HFA] 2 puff PO Q4HR PRN 10/17/13 [History] hydrALAZINE [Apresoline] 10 mg PO TID 10/18/17 [History] ClonazePAM [KlonoPIN] 0.5 mg PO BID 09/24/18 [History] Furosemide [Lasix] 10 mg PO DAILY 09/24/18 [History] Aspirin [Aspirin EC] 325 mg PO DAILY 10/11/18 [History] Docusate Sodium [Colace] 100 mg PO BID PRN #60 cap 10/17/18 [Rx] amLODIPine Besylate [Amlodipine Besylate] 5 mg PO DAILY #30 tablet 10/18/18 [Rx] Acetaminophen [Tylenol] 650 mg PO Q6H PRN 12/07/18 [History] Carbidopa/Levodopa [Sinemet 25-100 mg Tablet] 2 each PO TID 12/07/18 [History] Ferrous Sulfate [Feosol] 325 mg PO DAILY 12/07/18 [History] DULoxetine [Cymbalta] 60 mg PO DAILY 04/02/21 [History] Fluticasone Furoate [Arnuity Ellipta] 200 mcg IH DAILY 04/02/21 [History] Metoprolol Tartrate [Lopressor] 100 mg PO DAILY 04/02/21 [History] Warfarin [Coumadin] 2.5 mg PO ASDIRECTED 04/02/21 [History] atorvaSTATin [Lipitor] 10 mg PO BEDTIME 04/02/21 [History] Past Medical History HEENT History: Reports: Cataract, Hard of Hearing, Other (See Below) Other HEENT History: myopia. presbyopia. 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 angioedema. mitral regurgitation Respiratory History: Reports: Asthma, Other (See Below) Other Respiratory History: RAD. 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 osteopenia. RIGHT HIP PAIN. CHRONIC FATIGUE Neurological History: Reports: Parkinson's, Other (See Below) Other Neuro History: tremors. relates dx with parkinsons on 10/16 Psychiatric History: Reports: Anxiety, Other (See Below) Other Psychiatric History: personality disorder Endocrine/Metabolic History: Reports: Osteopenia, Vitamin D Deficiency, Other (See Below) Other Endocrine/Metabolic History: B12 deficiency. prediabetes Hematologic History: Reports: Anemia, B12 Deficiency, Iron Deficiency Immunologic History: Reports: None Oncologic (Cancer) History: Reports: Cervix Dermatologic History: Reports: Urticaria, Other (See Below) Other Dermatologic History: JOSI RASH OF GROIN - Past Surgical History Head Surgeries/Procedures: Reports: None HEENT Surgical History: Reports: Other (See Below) Other HEENT Surgeries/Procedures: dental Cardiovascular Surgical History: Reports: Coronary Artery Bypass GI Surgical History: Reports: Appendectomy, Colonoscopy Female Surgical History: Reports: Tubal Ligation Musculoskeletal Surgical History: Reports: None Social & Family History - Family History Family Medical History: No Pertinent Family History Cardiac: Reports: CAD Neurological: Reports: Parkinson's Endocrine/Metabolic: Reports: Diabetes, type II - Caffeine Use Caffeine Use: Reports: None - Living Situation & Occupation Living situation: Reports: , with Family (her daughter) ED ROS GENERAL - Review of Systems Review Of Systems: See Below Constitutional: Reports: No Symptoms HEENT: Reports: No Symptoms Respiratory: Reports: Cough. Denies: Shortness of Breath, Wheezing, Pleuritic Chest Pain, Sputum, Hemoptysis Cardiovascular: Reports: Chest Pain. Denies: Blood Pressure Problem, Claudication, Dyspnea on Exertion, Edema, Lightheadedness, Orthopnea, Palpitations, PND, Syncope Endocrine: Reports: No Symptoms GI/Abdominal: Reports: No Symptoms : Reports: No Symptoms Musculoskeletal: Reports: No Symptoms Skin: Reports: No Symptoms Neurological: Reports: No Symptoms Psychiatric: Reports: No Symptoms Hematologic/Lymphatic: Reports: No Symptoms ED EXAM, GENERAL - Physical Exam Exam: See Below Exam Limited By: No Limitations General Appearance: Alert, WD/WN, No Apparent Distress Eye Exam: Bilateral Eye: Normal Fundi, Normal Inspection, PERRL Ears: Normal External Exam, Normal Canal, Hearing Grossly Normal, Normal TMs Ear Exam: Bilateral Ear: Canal Normal, TM normal Nose: Normal Inspection, Normal Mucosa, No Blood Throat/Mouth: Normal Inspection, Normal Lips, Normal Teeth, Normal Gums, Normal Oropharynx, Normal Voice, No Airway Compromise Head: Atraumatic, Normocephalic, Other (neg ttp over blat temporal arteries neg scalp ttp ) Neck: Normal Inspection, Supple, Non-Tender, Full Range of Motion Respiratory/Chest: No Respiratory Distress, Lungs Clear, Normal Breath Sounds, No Accessory Muscle Use, Chest Non-Tender Cardiovascular: Normal Peripheral Pulses, Regular Rate, Rhythm, No Edema, No Gallop, No JVD, No Murmur, No Rub GI/Abdominal: Normal Bowel Sounds, Soft, Non-Tender, No Organomegaly, No Distention, No Abnormal Bruit, No Mass, Pelvis Stable Back Exam: Normal Inspection, Full Range of Motion Extremities: Normal Inspection, Normal Range of Motion, Non-Tender, No Pedal Edema, Normal Capillary Refill Neurological: Alert, Oriented, CN II-XII Intact, Normal Cognition, Normal Gait, Normal Reflexes, No Motor/Sensory Deficits Psychiatric: Normal Affect, Normal Mood Skin Exam: Warm, Dry, Intact, Normal Color, No Rash Lymphatic: No Adenopathy #1 Interpretation EKG Date: 04/02/21 Time: 12:40 Rhythm: NSR [place]: Normal P-Wave: Present QRS: Normal ST-T: Normal QT: Normal Course - Vital Signs Text/Narrative:: Reviewed the labs that were drawn today in clinic by Hans IRIZARRY potassium 3.9 gap 15.9 glucose 105 BUN 22 creatinine 1.2 GFR 44 CRP 0.7 lactic acid 2.6 troponin 7 Also reviewed the EKG from the clinic showed normal sinus rhythm no acute findings there is some bradycardia noted at 58 there is some T wave inversion EKG here in the hospital shows a heart rate of 53 normal sinus rhythm no acute ST elevation or depression there is no T wave inversion here on EKG We will check a chest x-ray and consult with Hans CXR mild moderate chf Patient is currently on Lasix 20 mg p.o. daily She is also on Coumadin and INR was not drawn I will order an INR PTT also check a second troponin and if all are normal she will be discharged homeINR 1.6- second troponin negative spoke with primary care provider Hans states patient sounds stable enough to be sent home and to be followed up in clinic in the next 24 hours Patient agrees that she does wish to go home I will instruct her to take 40 mg of her Lasix today and 40 mg tomorrow and then resume her normal dose along with taking her normal dose and have her Coumadin level rechecked in the next 48 hours Last Recorded V/S: Last Vital Signs Temp 36.4 C 04/02/21 12:31 Pulse 59 L 04/02/21 14:07 Resp 19 04/02/21 14:07 BP 118/55 L 04/02/21 14:07 Pulse Ox 95 04/02/21 14:07 - Orders/Labs/Meds Labs: Laboratory Tests 04/02/21 04/02/21 Range/Units 14:23 14:23 PT 17.2 H (9.9-12.5) SEC INR 1.6 L (2.0-3.5) Troponin I High Sens 7 (<=51) ng/L Departure - Departure Time of Disposition: 15:10 Disposition: Home, Self-Care 01 Condition: Good Clinical Impression: Chest pain CHF (congestive heart failure) Qualifiers: Heart failure type: diastolic Heart failure chronicity: acute on chronic Qualified Code(s): I50.33 - Acute on chronic diastolic (congestive) heart failure Instructions: Nonspecific Chest Pain, Adult Referrals: Mary Jane Meyer, [Primary Care Provider] - Forms: ED Department Discharge Additional Instructions: Take 2 of your Lasix today a total of 40 mg and 40 mg tomorrow then resume your normal dose of 20 mg of Lasix a day. Take your Coumadin as directed. Follow-up with your primary care provider in the next 24 hours for recheck and reevaluation Return to the emergency room if anything changes or gets worse Sepsis Event Note (ED) - Evaluation Sepsis Screening Result: No Definite Risk - Focused Exam Vital Signs: Vital Signs Temp Pulse Resp BP Pulse Ox 04/02/21 14:07 59 L 19 118/55 L 95 04/02/21 13:31 59 L 13 125/63 95 04/02/21 12:31 36.4 C 60 18 126/64 97 - Problem List & Annotations (1) Chest pain SNOMED Code(s): 28341513 Code(s): R07.9 - CHEST PAIN, UNSPECIFIED Status: Acute Current Visit: Yes (2) Congestive heart failure SNOMED Code(s): 72230241 Code(s): I50.9 - HEART FAILURE, UNSPECIFIED Status: Acute Current Visit: Yes Annotation/Comment:: - Patient initially admitted with CHF exacerbation. - Symptoms resolved and weight actually lower than baseline today. - Will continue to hold lasix. She maybe would not even need this at home if she was adherent to outpatient fluid and salt restriction. - D/C potassium as this was normal and she is not currently on lasix. - Outpatient Echo is already scheduled for follow-up. Qualifiers: Heart failure type: diastolic Heart failure chronicity: acute on chronic Qualified Code(s): I50.33 - Acute on chronic diastolic (congestive) heart failure
--- NOTE | 2021-04-02 13:44 | CR ---
[id number] RAD/RAD Chest PA or AP 1V EXAM: FRONTAL CHEST INDICATION: CHEST PAIN. COMPARISON: October 11, 2018. DISCUSSION: Cardiomegaly with mild to moderate central vascular congestion which is new or increased. Sternotomy. Hyperinflation compatible with COPD. No effusions are identified. IMPRESSION: 1. Mild to moderate congestive heart failure. Jayjay Stark MD 04/02/21 0461 Thank you for allowing us to participate in the care of your patient.
[2021-04-02 15:32] VITALS: BP 136/87; PULSE 67
== END 2021-04-02 15:25 | disposition home or self-care (01) ==
LOC: VM.ED 12:31
DX: I13.0 Hypertensive heart and chronic kidney disease with heart failure and stage 1 through stage 4 chronic kidney disease, or unspecified chronic kidney disease (principal); N18.9 Chronic kidney disease, unspecified; I50.33 Acute on chronic diastolic (congestive) heart failure; I25.10 Atherosclerotic heart disease of native coronary artery without angina pectoris; I25.2 Old myocardial infarction; Z79.82 Long term (current) use of aspirin; Z79.899 Other long term (current) drug therapy; Z79.01 Long term (current) use of anticoagulants; Z88.0 Allergy status to penicillin; Z88.1 Allergy status to other antibiotic agents; Z88.2 Allergy status to sulfonamides; Z88.5 Allergy status to narcotic agent; Z91.010 Allergy to peanuts; Z91.040 Latex allergy status; Z91.048 Other nonmedicinal substance allergy status; Z91.09 Other allergy status, other than to drugs and biological substances; Z95.1 Presence of aortocoronary bypass graft
CPT/HCPCS: 36415; 71045; 84484; 85610; 93005; 93010; 99284; 99285-25

== ENCOUNTER 2021-04-30 11:54 | Emergency (ER) | payer MEDICARE, OTHER ==
[2021-04-30] MEDS ORDERED: Sodium Chloride 0.9% 10 ML Syringe FLUSH PRN (12:12)
--- NOTE | 2021-04-30 12:47 | EDM.PDOC ---
ED HPI GENERAL MEDICAL PROBLEM - General Chief Complaint: Respiratory Problem Stated Complaint: WEAK, cough, decreased urine production Time Seen by Provider: 04/30/21 12:14 Source of Information: Reports: Patient, Family, Old Records History Limitations: Reports: Other (hard of hearing) - History of Present Illness INITIAL COMMENTS - FREE TEXT/NARRATIVE: Patient presents to the ED for cough for 2 weeks, shortness of breath and decreased urine output. She states that she has been taking her medicines. She feels like her heart is going fast. Is eating and drinking normally. some chest pain for a few days. no changes in the last day. NO fevers or chills. She has had covid in the past and her vaccinations. Normal bowel movements, decreased urine output. History of parkinsons Improves with: Reports: None Worsens with: Reports: None General Body Aches Pain Score (Numeric/FACES): 5 - Related Data Allergies Allergy/AdvReac Type Severity Reaction Status Date / Time codeine Allergy Severe Anaphylaxis Verified 04/30/21 13:05 peanut Allergy Severe anaphylaxis Verified 04/30/21 13:05 fluticasone [From Flonase] Allergy Nose Bleeds Verified 04/30/21 13:05 fluticasone furoate Allergy Other Verified 04/30/21 13:05 [From Breo Ellipta] Latex, Natural Rubber Allergy Hives Verified 04/30/21 13:05 nickel [Nickel] Allergy Rash Verified 04/30/21 13:05 nystatin Allergy Hives Verified 04/30/21 13:05 Penicillins Allergy Itching Verified 04/30/21 13:05 red dye Allergy Hives Verified 04/30/21 13:05 Sulfa (Sulfonamide Allergy Cannot Verified 04/30/21 13:05 Antibiotics) Remember vilanterol Allergy Other Verified 04/30/21 13:05 [From Breo Ellipta] zinc Allergy Hives Verified 04/30/21 13:05 acetaminophen [From Tylenol] AdvReac Edema Verified 04/30/21 13:05 albuterol AdvReac Tremors Verified 04/30/21 13:05 diphenhydramine HCl AdvReac Headache Verified 04/30/21 13:05 [From Benadryl] lisinopril AdvReac Edema Verified 04/30/21 13:05 prednisone AdvReac Excitabilit Verified 04/30/21 13:05 y molds Allergy Cannot Uncoded 04/30/21 13:05 Remember MSG Allergy Cannot Uncoded 04/30/21 13:05 Remember pollen Allergy Cannot Uncoded 04/30/21 13:05 Remember Home Meds: Home Meds Levalbuterol Tartrate [Xopenex HFA] 2 puff PO Q4HR PRN 10/17/13 [History] hydrALAZINE [Apresoline] 10 mg PO TID 10/18/17 [History] ClonazePAM [KlonoPIN] 0.5 mg PO BID 09/24/18 [History] Furosemide [Lasix] 10 mg PO DAILY 09/24/18 [History] Aspirin [Aspirin EC] 325 mg PO DAILY 10/11/18 [History] Docusate Sodium [Colace] 100 mg PO BID PRN #60 cap 10/17/18 [Rx] amLODIPine Besylate [Amlodipine Besylate] 5 mg PO DAILY #30 tablet 10/18/18 [Rx] Acetaminophen [Tylenol] 650 mg PO Q6H PRN 12/07/18 [History] Carbidopa/Levodopa [Sinemet 25-100 mg Tablet] 2 each PO TID 12/07/18 [History] Ferrous Sulfate [Feosol] 325 mg PO DAILY 12/07/18 [History] DULoxetine [Cymbalta] 60 mg PO DAILY 04/02/21 [History] Fluticasone Furoate [Arnuity Ellipta] 200 mcg IH DAILY 04/02/21 [History] Metoprolol Tartrate [Lopressor] 100 mg PO DAILY 04/02/21 [History] Warfarin [Coumadin] 2.5 mg PO ASDIRECTED 04/02/21 [History] atorvaSTATin [Lipitor] 10 mg PO BEDTIME 04/02/21 [History] Past Medical History HEENT History: Reports: Cataract, Hard of Hearing, Other (See Below) Other HEENT History: myopia. presbyopia. 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 angioedema. mitral regurgitation Respiratory History: Reports: Asthma, Other (See Below) Other Respiratory History: RAD. cough Gastrointestinal History: Reports: Chronic Constipation, GERD, Hiatal Hernia, Other (See Below) Other Gastrointestinal History: BLOOD IN STOOL Genitourinary History: Reports: Renal Disease, Other (See Below) Other Genitourinary History: chronic renal insufficiency [employer] History: Reports: Musculoskeletal History: Reports: Back Pain, Chronic, Other (See Below) Other Musculoskeletal History: tremor. osteopenia. RIGHT HIP PAIN. CHRONIC FATIGUE Neurological History: Reports: Parkinson's, Other (See Below) Other Neuro History: tremors. relates dx with parkinsons on 10/16 Psychiatric History: Reports: Anxiety, Other (See Below) Other Psychiatric History: personality disorder Endocrine/Metabolic History: Reports: Osteopenia, Vitamin D Deficiency, Other (See Below) Other Endocrine/Metabolic History: B12 deficiency. prediabetes Hematologic History: Reports: Anemia, B12 Deficiency, Iron Deficiency Immunologic History: Reports: None Oncologic (Cancer) History: Reports: Cervix Dermatologic History: Reports: Urticaria, Other (See Below) Other Dermatologic History: JOSI RASH OF GROIN - Past Surgical History Head Surgeries/Procedures: Reports: None HEENT Surgical History: Reports: Other (See Below) Other HEENT Surgeries/Procedures: dental Cardiovascular Surgical History: Reports: Coronary Artery Bypass GI Surgical History: Reports: Appendectomy, Colonoscopy Female Surgical History: Reports: Tubal Ligation Musculoskeletal Surgical History: Reports: None Social & Family History - Family History Family Medical History: No Pertinent Family History Cardiac: Reports: CAD Neurological: Reports: Parkinson's Endocrine/Metabolic: Reports: Diabetes, type II - Caffeine Use Caffeine Use: Reports: None - Living Situation & Occupation Living situation: Reports: , with Family (her daughter) ED ROS GENERAL - Review of Systems Review Of Systems: See Below Constitutional: Reports: Malaise, Weakness, Fatigue HEENT: Reports: No Symptoms. Denies: Eye Discharge, Rhinitis, Throat Swelling Respiratory: Reports: Shortness of Breath, Cough Cardiovascular: Reports: Chest Pain, Palpitations Endocrine: Reports: Fatigue GI/Abdominal: Reports: No Symptoms. Denies: Abdominal Pain, Black Stool, Bloody Stool, Constipation, Diarrhea, Decreased Appetite, Difficulty Swallowing, Hematochezia, Nausea : Reports: Other (decreased urine) Musculoskeletal: Reports: Neck Pain (chronically) Neurological: Reports: No Symptoms ED EXAM, GENERAL - Physical Exam Exam: See Below Exam Limited By: No Limitations General Appearance: Alert, WD/WN, No Apparent Distress, Other (unkempt) Eye Exam: Bilateral Eye: EOMI, Normal Inspection, PERRL Ears: Normal External Exam, Hearing Loss Nose: Normal Inspection, Normal Mucosa Throat/Mouth: Normal Inspection, Normal Lips, Normal Voice, Other (dry) #1 Interpretation EKG Date: 04/30/21 Time: 12:00 Rhythm: A-Flutter QRS: Normal ST-T: Other (repolarization abnormality) Comparison: Change From Previous EKG Course - Vital Signs Last Recorded V/S: Last Vital Signs Temp 36.6 C 04/30/21 13:06 Pulse 72 04/30/21 13:06 Resp 17 04/30/21 13:06 BP 127/67 04/30/21 13:06 Pulse Ox 94 L 04/30/21 13:06 - Orders/Labs/Meds Orders: Active Orders 24 hr Category Date Time Status Cardiac Monitoring [RC] . DIRECTED Care 04/30/21 12:12 Active CULTURE BLOOD [BC] Stat Lab 04/30/21 12:34 Received CULTURE BLOOD [BC] Stat Lab 04/30/21 12:40 Received Sodium Chloride 0.9% [Saline Flush] Med 04/30/21 12:12 Active 10 ml FLUSH ASDIRECTED PRN Blood Culture x2 Reflex Set [OM.PC] Stat Oth 04/30/21 12:16 Ordered Peripheral IV Insertion Adult [OM.PC] Stat Oth 04/30/21 12:12 Ordered Medication Orders Sodium Chloride (Sodium Chloride 0.9% 10 Ml Syringe) 10 ml FLUSH ASDIRECTED PRN PRN Reason: Keep Vein Open Labs: Laboratory Tests 04/30/21 04/30/21 04/30/21 Range/Units 12:34 12:34 12:34 WBC 12.0 H (4.0-10.0) x10^3/uL RBC 3.92 L (4.00-5.50) x10^6/uL Hgb 9.3 L D (12.0-16.0) g/dL Hct 30.9 L (33.0-47.0) % MCV 78.8 (78.0-93.0) fL MCH 23.7 L (26.0-32.0) pg MCHC 30.1 L (32.0-36.0) g/dL RDW Coeff of Patrick 17.4 H (10.0-15.0) % Plt Count 432 H D (130-400) x10^3/uL Neut % (Auto) 83.1 H (50.0-80.0) % Lymph % (Auto) 8.8 L (25.0-50.0) % Summers % (Auto) 7.0 (2.0-11.0) % Eos % (Auto) 0.8 (0.0-4.0) % Baso % (Auto) 0.3 (0.2-1.2) % D-Dimer, Quantitative 0.23 (<=0.58) mg/LFEU Sodium 142 (136-145) mmol/L Potassium 4.4 (3.5-5.1) mmol/L Chloride 104 (98-107) mmol/L Carbon Dioxide 33 H (21-32) mmol/L Anion Gap 9.4 (5-15) mmol/L BUN 27 H (7-18) mg/dL Creatinine 1.2 H (0.55-1.02) mg/dL Est Cr Clr Drug Dosing TNP Estimated GFR (MDRD) 44 Glucose 99 (70-99) mg/dL Lactic Acid (0.4-2.0) mmol/L Calcium 8.2 L (8.5-10.1) mg/dL Corrected Calcium 8.9 (8.5-10.1) mg/dL Magnesium 1.9 (1.8-2.4) mg/dL Total Bilirubin 0.2 (0.2-1.0) mg/dL AST 10 L (15-37) U/L ALT 9 L (14-59) U/L Alkaline Phosphatase 129 H (46-116) U/L Troponin I High Sens 7 (<=51) ng/L C-Reactive Protein 0.6 (<=0.9) mg/dL NT-Pro-B Natriuret Pep 1330 H (<=450) pg/mL Total Protein 8.0 (6.4-8.2) g/dL Albumin 3.1 L (3.4-5.0) g/dL Globulin 4.9 Albumin/Globulin Ratio 0.63 Lipase 107 (73-393) U/L Influenza Type A RNA (NEGATIVE) RSV RNA (INAAT) (NEGATIVE) Influenza Type B RNA (NEGATIVE) SARS-CoV-2 RNA (JERSON) (NEGATIVE) 04/30/21 04/30/21 Range/Units 12:34 13:57 WBC (4.0-10.0) x10^3/uL RBC (4.00-5.50) x10^6/uL Hgb (12.0-16.0) g/dL Hct (33.0-47.0) % MCV (78.0-93.0) fL MCH (26.0-32.0) pg MCHC (32.0-36.0) g/dL RDW Coeff of Patrick (10.0-15.0) % Plt Count (130-400) x10^3/uL Neut % (Auto) (50.0-80.0) % Lymph % (Auto) (25.0-50.0) % Summers % (Auto) (2.0-11.0) % Eos % (Auto) (0.0-4.0) % Baso % (Auto) (0.2-1.2) % D-Dimer, Quantitative (<=0.58) mg/LFEU Sodium (136-145) mmol/L Potassium (3.5-5.1) mmol/L Chloride (98-107) mmol/L Carbon Dioxide (21-32) mmol/L Anion Gap (5-15) mmol/L BUN (7-18) mg/dL Creatinine (0.55-1.02) mg/dL Est Cr Clr Drug Dosing Estimated GFR (MDRD) Glucose (70-99) mg/dL Lactic Acid 1.2 (0.4-2.0) mmol/L Calcium (8.5-10.1) mg/dL Corrected Calcium (8.5-10.1) mg/dL Magnesium (1.8-2.4) mg/dL Total Bilirubin (0.2-1.0) mg/dL AST (15-37) U/L ALT (14-59) U/L Alkaline Phosphatase (46-116) U/L Troponin I High Sens (<=51) ng/L C-Reactive Protein (<=0.9) mg/dL NT-Pro-B Natriuret Pep (<=450) pg/mL Total Protein (6.4-8.2) g/dL Albumin (3.4-5.0) g/dL Globulin Albumin/Globulin Ratio Lipase (73-393) U/L Influenza Type A RNA Negative (NEGATIVE) RSV RNA (INAAT) Negative (NEGATIVE) Influenza Type B RNA Negative (NEGATIVE) SARS-CoV-2 RNA (JERSON) Negative (NEGATIVE) Meds: Medications Generic Name Dose Route Start Last Admin Trade Name Freq PRN Reason Stop Dose Admin Sodium Chloride 10 ml 04/30/21 12:12 Sodium Chloride 0.9% 10 Ml Syringe FLUSH ASDIRECTED PRN Keep Vein Open Discontinued Medications Generic Name Dose Route Start Last Admin Trade Name Freq PRN Reason Stop Dose Admin Hydrocodone Bitart/Acetaminophen 1 tab 04/30/21 13:40 04/30/21 13:43 Acetaminophen/Hydrocodone 325-10 Mg Tab PO 04/30/21 13:41 1 tab ONETIME ONE Administration Furosemide 40 mg 04/30/21 13:31 04/30/21 13:43 Furosemide 40 Mg/4 Ml Vial IV 04/30/21 13:32 40 mg ONETIME ONE Administration - Radiology Interpretation Free Text/Narrative:: moderate edema, large intrathoracic stomach. impression is CHF, interpreted by radiology - Re-Assessments/Exams Free Text/Narrative Re-Assessment/Exam: 04/30/21 14:30 Given 40 lasix IV due to increased CHF, probably due to new onset atrial flutter. Rate is controlled. Only on lasix 10 mg PO daily, need to increase to 20 mg bid, properly Departure - Departure Time of Disposition: 14:56 Disposition: Home, Self-Care 01 Condition: Fair Clinical Impression: Atrial flutter Congestive heart failure Qualifiers: Heart failure type: diastolic Heart failure chronicity: acute on chronic Qualified Code(s): I50.33 - Acute on chronic diastolic (congestive) heart failure - Discharge Information *PRESCRIPTION DRUG MONITORING PROGRAM REVIEWED*: Not Applicable *COPY OF PRESCRIPTION DRUG MONITORING REPORT IN PATIENT ARMAAN: Not Applicable Instructions: Heart Failure, Self Care, [id number], Heart Failure Action Plan, Atrial Flutter, Living With Heart Failure Referrals: Mary Jane Meyer DO [Primary Care Provider] - Forms: ED Department Discharge Additional Instructions: It is important for you to increased your lasix ( furosemide) from the 10 mg daily to 20 mg twice a day for the next several days. This should help with your shortness of breath. You will need your electrolyte checked in 2-3 days with your primary care and you will need to make this appointment. You will need an echocardiogram to look at your heart in the near future. Continue your other medications . You have new onset atrial flutter, but are already on a blood thinner and your heart rate is controlled. Sepsis Event Note (ED) - Focused Exam Vital Signs: Vital Signs Temp Pulse Resp BP Pulse Ox 04/30/21 13:06 36.6 C 72 17 127/67 94 L - My Orders Last 24 Hours: My Active Orders 04/30/21 12:12 Cardiac Monitoring [RC] . DIRECTED Sodium Chloride 0.9% [Saline Flush] 10 ml FLUSH ASDIRECTED PRN Peripheral IV Insertion Adult [OM.PC] Stat 04/30/21 12:16 Blood Culture x2 Reflex Set [OM.PC] Stat 04/30/21 12:34 CULTURE BLOOD [BC] Stat 04/30/21 12:40 CULTURE BLOOD [BC] Stat - Assessment/Plan Last 24 Hours: My Active Orders 04/30/21 12:12 Cardiac Monitoring [RC] . DIRECTED Sodium Chloride 0.9% [Saline Flush] 10 ml FLUSH ASDIRECTED PRN Peripheral IV Insertion Adult [OM.PC] Stat 04/30/21 12:16 Blood Culture x2 Reflex Set [OM.PC] Stat 04/30/21 12:34 CULTURE BLOOD [BC] Stat 04/30/21 12:40 CULTURE BLOOD [BC] Stat
--- NOTE | 2021-04-30 13:00 | CR ---
[id number] RAD/RAD Chest PA or AP 1V EXAM: SINGLE VIEW CHEST. INDICATION: CHEST PAIN COMPARISON: CORRELATION IS MADE WITH APRIL 02, 2021 FINDINGS: There is moderate edema. There is a large intrathoracic stomach The cardiac silhouette is enlarged Median sternotomy sutures are seen IMPRESSION: CHF Juan Hu MD 04/30/21 [id number] Thank you for allowing us to participate in the care of your patient.
[2021-04-30 13:12] VITALS: BP 127/67; PULSE 72
[2021-04-30 13:16] LABS: CHLORIDE,CL 104 mmol/L (98-107); SODIUM,NA 142 mmol/L (136-145)
[2021-04-30 13:25] LABS: ANION GAP 9.4 mmol/L (5-15)
[2021-04-30] MEDS: Acetaminophen/HYDROcodone 325-10 MG Tab PO ONE (13:43)
[2021-04-30] MEDS: Furosemide 40 MG/4 ML VIAL IV ONE (13:43)
[2021-04-30 14:57] LABS: CORONAVIRUS COVID-19 NAA NEGATIVE (NEGATIVE)
[2021-04-30 14:58] LABS: RESPIRATORY SYNCYTIAL VIR NAA NEGATIVE (NEGATIVE)
== END 2021-04-30 15:27 | disposition home or self-care (01) ==
LOC: VM.ED 11:54
DX: I48.92 Unspecified atrial flutter (principal); I13.0 Hypertensive heart and chronic kidney disease with heart failure and stage 1 through stage 4 chronic kidney disease, or unspecified chronic kidney disease; I50.33 Acute on chronic diastolic (congestive) heart failure; N18.9 Chronic kidney disease, unspecified; I25.2 Old myocardial infarction; Z20.822 Contact with and (suspected) exposure to COVID-19; Z88.5 Allergy status to narcotic agent; Z91.010 Allergy to peanuts; Z88.8 Allergy status to other drugs, medicaments and biological substances; Z88.2 Allergy status to sulfonamides; Z88.0 Allergy status to penicillin; Z79.82 Long term (current) use of aspirin; Z79.899 Other long term (current) drug therapy; Z79.01 Long term (current) use of anticoagulants
CPT/HCPCS: 0241U; 36415; 71045; 80053; 83605; 83690; 83735; 83880; 84484; 85025; 85379; 86140; 87040; 93005; 93010; 96374; 99284; 99285-25; A9270-GY; J1940

== ENCOUNTER 2021-06-12 12:21 | Emergency (ER) | payer MEDICARE, OTHER ==
--- NOTE | 2021-06-12 12:59 | EDM.PDOC ---
ED HPI GENERAL MEDICAL PROBLEM - General Chief Complaint: Chest Pain Stated Complaint: Chest pain shortness of breath constipation anxiety Time Seen by Provider: 06/12/21 12:25 Source of Information: Reports: Patient, Family History Limitations: Reports: No Limitations - History of Present Illness INITIAL COMMENTS - FREE TEXT/NARRATIVE: Patient presents the ER with her daughter today with ongoing intermittent chest pain or shortness of breath that she says occurs all the time it started this morning about 8:00 when she bent over she started having increased shortness of breath but it got better after she raised up but then she started getting nervous and then she had chest pain which she cannot quantify she states her heart started racing and she got nervous stating she wanted to come to the ER her daughter try to get her in with a primary care but the clinic was closed and she brought her to the ER afterwards. Patient does have a history of anxiety along with CHF and states this does occur sometimes when she gets anxious but she wanted to come get checked out. She denies any increase or changes of the shortness of breath or dyspnea on exertion PND orthopnea or lower extremity edema. She has no other complaints at this time and states she was fine until this morning Onset: Sudden Duration: Hour(s): Location: Reports: Chest Severity: Mild Improves with: Reports: Rest Worsens with: Reports: Movement Associated Symptoms: Reports: Chest Pain, Shortness of Breath. Denies: Confusion, Cough, cough w sputum, Diaphoresis, Fever/Chills, Headaches, Loss of Appetite, Malaise, Nausea/Vomiting, Seizure, Syncope Chest Pain Score (Numeric/FACES): 9 - Related Data Allergies Allergy/AdvReac Type Severity Reaction Status Date / Time codeine Allergy Severe Anaphylaxis Verified 04/30/21 13:05 peanut Allergy Severe anaphylaxis Verified 04/30/21 13:05 fluticasone [From Flonase] Allergy Nose Bleeds Verified 04/30/21 13:05 fluticasone furoate Allergy Other Verified 04/30/21 13:05 [From Breo Ellipta] Latex, Natural Rubber Allergy Hives Verified 04/30/21 13:05 nickel [Nickel] Allergy Rash Verified 04/30/21 13:05 nystatin Allergy Hives Verified 04/30/21 13:05 Penicillins Allergy Itching Verified 04/30/21 13:05 red dye Allergy Hives Verified 04/30/21 13:05 Sulfa (Sulfonamide Allergy Cannot Verified 04/30/21 13:05 Antibiotics) Remember vilanterol Allergy Other Verified 04/30/21 13:05 [From Breo Ellipta] zinc Allergy Hives Verified 04/30/21 13:05 acetaminophen [From Tylenol] AdvReac Edema Verified 04/30/21 13:05 albuterol AdvReac Tremors Verified 04/30/21 13:05 diphenhydramine HCl AdvReac Headache Verified 04/30/21 13:05 [From Benadryl] lisinopril AdvReac Edema Verified 04/30/21 13:05 prednisone AdvReac Excitabilit Verified 04/30/21 13:05 y molds Allergy Cannot Uncoded 04/30/21 13:05 Remember MSG Allergy Cannot Uncoded 04/30/21 13:05 Remember pollen Allergy Cannot Uncoded 04/30/21 13:05 Remember Home Meds: Home Meds Levalbuterol Tartrate [Xopenex HFA] 2 puff PO Q4HR PRN 10/17/13 [History] hydrALAZINE [Apresoline] 10 mg PO TID 10/18/17 [History] ClonazePAM [KlonoPIN] 0.5 mg PO BID 09/24/18 [History] Furosemide [Lasix] 10 mg PO DAILY 09/24/18 [History] Aspirin [Aspirin EC] 325 mg PO DAILY 10/11/18 [History] Docusate Sodium [Colace] 100 mg PO BID PRN #60 cap 10/17/18 [Rx] amLODIPine Besylate [Amlodipine Besylate] 5 mg PO DAILY #30 tablet 10/18/18 [Rx] Acetaminophen [Tylenol] 650 mg PO Q6H PRN 12/07/18 [History] Carbidopa/Levodopa [Sinemet 25-100 mg Tablet] 2 each PO TID 12/07/18 [History] Ferrous Sulfate [Feosol] 325 mg PO DAILY 12/07/18 [History] DULoxetine [Cymbalta] 60 mg PO DAILY 04/02/21 [History] Fluticasone Furoate [Arnuity Ellipta] 200 mcg IH DAILY 04/02/21 [History] Metoprolol Tartrate [Lopressor] 100 mg PO DAILY 04/02/21 [History] Warfarin [Coumadin] 2.5 mg PO ASDIRECTED 04/02/21 [History] atorvaSTATin [Lipitor] 10 mg PO BEDTIME 04/02/21 [History] Past Medical History HEENT History: Reports: Cataract, Hard of Hearing, Other (See Below) Other HEENT History: myopia. presbyopia. 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 angioedema. mitral regurgitation Respiratory History: Reports: Asthma, Other (See Below) Other Respiratory History: RAD. cough Gastrointestinal History: Reports: Chronic Constipation, GERD, Hiatal Hernia, Other (See Below) Other Gastrointestinal History: BLOOD IN STOOL Genitourinary History: Reports: Renal Disease, Other (See Below) Other Genitourinary History: chronic renal insufficiency [employer]MENT[employer] History: Reports: Musculoskeletal History: Reports: Back Pain, Chronic, Other (See Below) Other Musculoskeletal History: tremor. osteopenia. RIGHT HIP PAIN. CHRONIC FATIGUE Neurological History: Reports: Parkinson's, Other (See Below) Other Neuro History: tremors. relates dx with parkinsons on 10/16 Psychiatric History: Reports: Anxiety, Other (See Below) Other Psychiatric History: personality disorder Endocrine/Metabolic History: Reports: Osteopenia, Vitamin D Deficiency, Other (See Below) Other Endocrine/Metabolic History: B12 deficiency. prediabetes Hematologic History: Reports: Anemia, B12 Deficiency, Iron Deficiency Immunologic History: Reports: None Oncologic (Cancer) History: Reports: Cervix Dermatologic History: Reports: Urticaria, Other (See Below) Other Dermatologic History: JOSI RASH OF GROIN - Past Surgical History Head Surgeries/Procedures: Reports: None HEENT Surgical History: Reports: Other (See Below) Other HEENT Surgeries/Procedures: dental Cardiovascular Surgical History: Reports: Coronary Artery Bypass Respiratory Surgical History: Reports: None GI Surgical History: Reports: Appendectomy, Colonoscopy Female Surgical History: Reports: Tubal Ligation Endocrine Surgical History: Reports: None Neurological Surgical History: Reports: None Musculoskeletal Surgical History: Reports: None Oncologic Surgical History: Reports: None Dermatological Surgical History: Reports: None Social & Family History - Family History Family Medical History: No Pertinent Family History Cardiac: Reports: CAD Neurological: Reports: Parkinson's Endocrine/Metabolic: Reports: Diabetes, type II - Caffeine Use Caffeine Use: Reports: None - Living Situation & Occupation Living situation: Reports: , with Family (her daughter) ED ROS GENERAL - Review of Systems Review Of Systems: See Below Constitutional: Reports: No Symptoms HEENT: Reports: No Symptoms Respiratory: Reports: Shortness of Breath Cardiovascular: Reports: Chest Pain Endocrine: Reports: No Symptoms GI/Abdominal: Reports: No Symptoms : Reports: No Symptoms Musculoskeletal: Reports: No Symptoms Skin: Reports: No Symptoms Neurological: Reports: No Symptoms Psychiatric: Reports: No Symptoms Hematologic/Lymphatic: Reports: No Symptoms Immunologic: Reports: No Symptoms ED EXAM, GENERAL - Physical Exam Exam: See Below Exam Limited By: No Limitations General Appearance: Alert, WD/WN, No Apparent Distress Eye Exam: Bilateral Eye: EOMI, Normal Inspection, PERRL Nose: Normal Inspection, Normal Mucosa, No Blood Throat/Mouth: Normal Inspection, Normal Lips, Normal Teeth, Normal Gums, Normal Oropharynx, Normal Voice, No Airway Compromise, Other (Patient talking wide open 20 words per sentence no respiratory distress noted patient walked in via ambulance bay no noted discomfort) Neck: Normal Inspection, Supple, Non-Tender, Full Range of Motion Respiratory/Chest: No Respiratory Distress, Lungs Clear, Normal Breath Sounds, No Accessory Muscle Use, Chest Non-Tender Cardiovascular: Normal Peripheral Pulses, Regular Rate, Rhythm, No Gallop, No JVD, No Murmur, No Rub, Other (1+ bilateral pedal edema). No: No Edema GI/Abdominal: Normal Bowel Sounds, Soft, Non-Tender, No Distention, No Abnormal Bruit, Other (No hepatojugular reflux appreciated). No: Guarding, Rigid, Rebound, Tender Back Exam: Normal Inspection, Full Range of Motion Extremities: Normal Inspection, Normal Range of Motion, Non-Tender, Normal Capillary Refill, Pedal Edema. No: No Pedal Edema Neurological: Alert, Oriented, CN II-XII Intact, Normal Cognition, Normal Gait, Normal Reflexes, No Motor/Sensory Deficits Psychiatric: Normal Affect, Normal Mood Skin Exam: Warm, Dry, Intact, Normal Color, No Rash #1 Interpretation EKG Date: 06/12/21 Time: 12:30 Rhythm: NSR [place]: Normal P-Wave: Present QRS: Normal ST-T: Normal QT: Normal Course - Vital Signs Text/Narrative:: CBC BMP troponin EKG chest x-ray Chest x-ray no acute finding CBC noted hemoglobin 8.3 hematocrit 29 mild increase in BUN and creatinine troponin 9 baseline H&H as compared to last visit EKG normal sinus rhythm no acute findings Patient was rechecked sound asleep sat 95% on room air heart rate 70 no acute distress noted Last Recorded V/S: Last Vital Signs Temp 36.4 C 06/12/21 12:21 Pulse 67 06/12/21 12:21 Resp 12 06/12/21 12:21 BP 134/60 06/12/21 12:21 Pulse Ox 95 06/12/21 12:21 - Orders/Labs/Meds Labs: Laboratory Tests 06/12/21 06/12/21 Range/Units 13:00 13:00 WBC 9.6 (4.0-10.0) x10^3/uL RBC 3.97 L (4.00-5.50) x10^6/uL Hgb 8.3 L (12.0-16.0) g/dL Hct 29.2 L (33.0-47.0) % MCV 73.6 L (78.0-93.0) fL MCH 20.9 L (26.0-32.0) pg MCHC 28.4 L (32.0-36.0) g/dL RDW Coeff of Patrick 17.5 H (10.0-15.0) % Plt Count 428 H (130-400) x10^3/uL Immature Gran % (Auto) 0.20 (0.00-0.43) % Neut % (Auto) 82.5 H (50.0-80.0) % Lymph % (Auto) 9.0 L (25.0-50.0) % [place] % (Auto) 6.5 (2.0-11.0) % Eos % (Auto) 1.6 (0.0-4.0) % Baso % (Auto) 0.2 (0.2-1.2) % Neut # (Auto) 7.9 H (1.8-7.7) x10^3/uL Lymph # (Auto) 0.9 L (1.0-4.8) x10^3/uL [place] # (Auto) 0.6 (0.0-0.8) x10^3/uL Eos # (Auto) 0.2 (0.0-0.5) x10^3/uL Baso # (Auto) 0.0 (0.0-0.2) x10^3/uL Immature Gran # (Auto) 0.02 (0.00-0.07) x10^3/uL Sodium 141 (136-145) mmol/L Potassium 3.8 (3.5-5.1) mmol/L Chloride 105 (98-107) mmol/L Carbon Dioxide 30 (21-32) mmol/L Anion Gap 9.8 (5-15) mmol/L BUN 21 H (7-18) mg/dL Creatinine 1.3 H (0.55-1.02) mg/dL Est Cr Clr Drug Dosing 29.98 mL/min Estimated GFR (MDRD) 40 Glucose 103 H (70-99) mg/dL Calcium 8.4 L (8.5-10.1) mg/dL Troponin I High Sens 9 (<=51) ng/L Departure - Departure Time of Disposition: 13:50 Disposition: Home, Self-Care 01 Condition: Good Clinical Impression: Chest pain, Shortness of breath Instructions: Nonspecific Chest Pain, Adult Referrals: Hans Cash NP [Primary Care Provider] - Forms: ED Department Discharge Additional Instructions: Follow-up with your primary care provider in the next 24 to 48 hours Take all your medications as directed Return to the emergency room if anything changes or gets worse Sepsis Event Note (ED) - Focused Exam Vital Signs: Vital Signs Temp Pulse Resp BP Pulse Ox 06/12/21 12:21 36.4 C 67 12 134/60 95 - Problem List & Annotations (1) Chest pain SNOMED Code(s): 84481537 Code(s): R07.9 - CHEST PAIN, UNSPECIFIED Status: Acute Current Visit: Yes (2) Shortness of breath SNOMED Code(s): 417145460 Code(s): R06.02 - SHORTNESS OF BREATH Status: Acute Current Visit: Yes
[2021-06-12 13:23] VITALS: BP 134/60; PULSE 67
[2021-06-12 13:34] LABS: ANION GAP 9.8 mmol/L (5-15)
--- NOTE | 2021-06-12 13:39 | CR ---
[id number] RAD/RAD Chest PA or AP 1V EXAM: FRONTAL CHEST INDICATION: CHEST PAIN. COMPARISON: April 30, 2021. DISCUSSION: Cardiomegaly with moderate central vascular congestion, unchanged. Sternotomy. Moderate to large hiatus hernia. IMPRESSION: 1. Mild to moderate congestive heart failure. Jayjay Stark MD 06/12/21 [id number] Thank you for allowing us to participate in the care of your patient.
== END 2021-06-12 14:20 | disposition home or self-care (01) ==
LOC: VM.ED 12:21
DX: R07.89 Other chest pain (principal); R06.02 Shortness of breath; I25.10 Atherosclerotic heart disease of native coronary artery without angina pectoris; E78.00 Pure hypercholesterolemia, unspecified; I10 Essential (primary) hypertension; I25.2 Old myocardial infarction; Z79.01 Long term (current) use of anticoagulants; Z91.010 Allergy to peanuts; Z88.5 Allergy status to narcotic agent; Z88.0 Allergy status to penicillin; Z88.2 Allergy status to sulfonamides; Z91.09 Other allergy status, other than to drugs and biological substances; Z91.040 Latex allergy status; Z79.82 Long term (current) use of aspirin
CPT/HCPCS: 36415; 71045; 80048; 84484; 85025; 93005; 93010; 99284; 99285-25

== ENCOUNTER 2021-08-31 09:13 | Inpatient (IN) | payer MEDICARE, OTHER ==
--- NOTE | 2021-08-31 10:24 | CR ---
[id number] RAD/RAD Chest Portable EXAM: PORTABLE CHEST RADIOGRAPH. INDICATION: CHEST PAIN COUGH COMPARISON: CORRELATION IS MADE WITH APRIL 02, 2021 FINDINGS: There appears to be mild edema. The cardiomediastinal contour is stable Median sternotomy sutures are seen IMPRESSION: MILD CONGESTIVE HEART FAILURE Juan Hu MD 08/31/21 [id number] Thank you for allowing us to participate in the care of your patient.
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
[2021-08-31 10:44] LABS: CHLORIDE,CL 99 mmol/L (98-107); SODIUM,NA 139 mmol/L (136-145)
[2021-08-31 10:47] LABS: ANION GAP 11.7 mmol/L (5-15)
[2021-08-31] MEDS ORDERED: [UNRECOGNIZED DRUG - REMARK] SCH (13:00)
[2021-08-31] MEDS ORDERED: Non-Formulary Medication 1 Each (Levalbuterol Tartrate [Xopenex Hfa] 15 GM Inhaler) PO PRN (13:18)
[2021-08-31] MEDS ORDERED: Calcium Carbonate 750 MG Tab.Chew PO PRN (14:26)
[2021-08-31] MEDS: Furosemide 20 MG/2 ML VIAL IV SCH (14:27)
[2021-08-31] MEDS: Miconazole 2% Top Powder 45 GM Container TOP SCH ×2 (14:28→19:36)
[2021-08-31] MEDS: Acetaminophen 325 MG Tab PO PRN (14:38)
[2021-08-31] MEDS ORDERED: Albuterol/Ipratropium 3.0-0.5 MG/3 ML Neb Soln NEB PRN (15:09)
--- NOTE | 2021-08-31 17:50 | HP ---
Admission history and physical to the acute care floor at [facility]. CHIEF COMPLAINT: 1. Shortness of breath. 2. Weakness. 3. Nausea. HISTORY OF PRESENT ILLNESS: A 76-year-old female patient presented to the emergency room at [facility] via EMS for the above complaints. The patient states that her symptoms started yesterday. The patient states she was also having chest pain. The patient also complained of shortness of breath. The patient did not have any headaches, dizziness, or lightheadedness. The patient has a dry cough. No abdominal pain. No diarrhea. The patient does not think she has had any fevers or chills. No recent infections. Workup in the ER; the patient had a chest x-ray which showed congestive heart failure. The patient's INR is subtherapeutic at 1.4. BUN 25 with a creatinine of 1.3 shows worsening kidney disease. UA was negative. COVID-19 was negative. PAST MEDICAL HISTORY: 1. Hard of hearing. 2. Coronary artery disease. 3. Mixed hyperlipidemia. 4. Hypertension. 5. MS. 6. Mitral regurgitation. 7. Angioedema. 8. GERD. 9. Hiatal hernia. 10.Chronic kidney disease. 11.Essential tremor. 12.Parkinson disease. 13.Vitamin D deficiency. 14.Generalized anxiety disorder. 15.Iron-deficiency anemia. 16.Vitamin B12 deficiency. PAST SURGICAL HISTORY: 1. Appendectomy. 2. Tubal ligation. 3. Left carotid endarterectomy. FAMILY HISTORY: Noncontributory. SOCIAL HISTORY: The patient does not smoke cigarettes. The patient does not drink alcohol. The patient currently lives with her daughter in a single family home. ALLERGIES: 1. Codeine. 2. Peanuts. 3. Flonase. 4. Latex. 5. Nickel. 6. Nystatin. 7. Penicillins. 8. Red dye. 9. Sulfa. 10.Zinc. 11.Acetaminophen. 12.Albuterol. 13.Diphenhydramine. 14.Lisinopril. 15.Prednisone. 16.Molds. 17.MSG. 18.Pollen. MEDICATIONS: 1. Acetaminophen 650 mg 1 tablet p.o. every 6 hours as needed. 2. Norvasc 5 mg 1 tablet p.o. daily. 3. Aspirin 81 mg 1 tablet p.o. daily. 4. Lipitor 10 mg 1 tablet p.o. daily at bedtime. 5. Extra-strength Tums 750 mg 1 tablet p.o. daily as needed. 6. Sinemet 1 tablet p.o. 3 times daily. 7. Clonazepam 0.5 mg 1 tablet p.o. twice daily. 8. Cymbalta 60 mg 1 tablet p.o. daily. 9. Ferrous sulfate 325 mg 1 tablet p.o. daily. 10.Lasix 20 mg p.o. twice daily. 11.Hydralazine 10 mg 1 tablet p.o. 3 times daily. 12.Metoprolol 100 mg 1 tablet p.o. daily. 13.Xopenex 2 puffs every 4 hours as needed. 14.Coumadin 2.5 mg p.o. daily. REVIEW OF SYSTEMS: See HPI. PHYSICAL EXAMINATION: Vital Signs: Height 5 feet 2 inches. Weight 200 pounds. Temperature 98.3, pulse 91, blood pressure 121/68, respiratory rate 20, oxygen saturation 96% on room air. Skin: The patient has open areas under the pannus of her abdomen as well as under each breast. The open areas appear to be consistent with a yeast infection. Respiratory: Bibasilar crackles with wheezing throughout. Cardiovascular: Irregularly irregular rhythm, regular rate. Abdomen: Soft, nontender. Bowel sounds are hypoactive x4. Extremities: No edema. Neurologic: The patient is alert. The patient is severely hard of hearing. The patient does not appear to be in any acute distress. No focal neurological deficits. LABORATORY STUDIES: 1. CBC: White blood cell count 8.7, hemoglobin 11.4, hematocrit 37.4, platelets 373,000. 2. PT 15.3, INR 1.4. 3. CMP: Sodium 139, potassium 3.7, chloride 99, CO2 of 32, anion gap 11.7, BUN 25, creatinine 1.3, GFR 40, glucose 110, calcium 9.0, AST less than 10, ALT 9, alkaline phosphatase 125, total protein 7.5. 4. Lactic acid 0.4. 5. CRP 0.9. 6. BNP 379. IMAGING STUDIES: Chest x-ray shows mild congestive heart failure. ASSESSMENT: 1. Epuac-go-[id number] diastolic heart failure. 2. Acute kidney injury. 3. Subtherapeutic INR. 4. Longstanding persistent atrial fibrillation. 5. Hypertension. 6. Mixed hyperlipidemia. 7. Parkinson disease. 8. Coronary artery disease. PLAN: A 76-year-old female patient will be admitted to the acute care floor at [facility] for the above diagnoses. The patient will be treated with IV Lasix and we will hold the p.o. dosing. Repeat chest x-ray tomorrow. May consider fluid restriction. The patient is up 5 pounds from baseline. Repeat laboratory work tomorrow. No IV fluids at this point. The patient wishes to be a code 2. Long-term plan of care thoroughly discussed with the patient. Given her home situation and considerable weakness and deconditioning, the patient will be admitted to the local fpc once she has stabilized on acute care. The patient verbalizes understanding and agrees with the plan of care. We will ask Case Management to assist with placement. This patient was seen and examined by me as an [facility] provider. TB: 08/31/2021 15:19:54 MODL: 08/31/2021 17:29:17 /[id number]
[2021-08-31] MEDS: ClonazePAM 0.5 MG Tab PO SCH (19:34)
[2021-08-31] MEDS: atorvaSTATin 10 MG Tab PO SCH (19:34)
[2021-08-31] MEDS: Carbidopa/Levodopa 25-100 MG Tab PO SCH (19:34)
[2021-08-31] MEDS: hydrALAZINE 10 MG Tab PO SCH (19:34)
[2021-08-31] MEDS ORDERED: Warfarin 5 MG Tab PO SCH (20:00)
[2021-09-01] MEDS: Acetaminophen 325 MG Tab PO PRN (01:50)
[2021-09-01] MEDS: Sodium Chloride 0.9% 10 ML Syringe FLUSH PRN (01:52)
[2021-09-01] MEDS ORDERED: Warfarin 2.5 MG Tab PO SCH ×2 (08:00→20:00)
[2021-09-01] MEDS: Metoprolol Tartrate 50 MG Tab PO SCH (08:47)
[2021-09-01] MEDS: Carbidopa/Levodopa 25-100 MG Tab PO SCH ×3 (08:48→19:47)
[2021-09-01] MEDS: amLODIPine 5 MG Tab PO SCH (08:48)
[2021-09-01] MEDS: DULoxetine 60 MG Cap PO SCH (08:48)
[2021-09-01] MEDS: hydrALAZINE 10 MG Tab PO SCH ×3 (08:49→19:48)
[2021-09-01] MEDS: Ferrous Sulfate 325 MG Tab PO SCH (08:49)
[2021-09-01] MEDS: ClonazePAM 0.5 MG Tab PO SCH ×2 (08:49→19:47)
[2021-09-01] MEDS: Aspirin 81 MG Tab.EC PO SCH (08:49)
[2021-09-01] MEDS: Miconazole 2% Top Powder 45 GM Container TOP SCH ×2 (08:51→19:49)
[2021-09-01] MEDS: Furosemide 20 MG/2 ML VIAL IV SCH (08:51)
[2021-09-01 09:26] LABS: CHLORIDE,CL 100 mmol/L (98-107); SODIUM,NA 139 mmol/L (136-145)
[2021-09-01 09:47] LABS: ANION GAP 12.6 mmol/L (5-15)
--- NOTE | 2021-09-01 10:41 | CR ---
[id number] RAD/RAD Chest PA or AP 1V EXAM: SINGLE VIEW CHEST. INDICATION: CONGESTIVE HEART FAILURE COMPARISON: CORRELATION IS MADE WITH AUGUST 31, 2021 FINDINGS: There is persistent mild edema There may be minimal improvement since yesterday IMPRESSION: PERSISTENT MILD CONGESTIVE HEART FAILURE WITH SLIGHT IMPROVEMENT Juan Hu MD 09/01/21 [id number] Thank you for allowing us to participate in the care of your patient.
--- NOTE | 2021-09-01 10:43 | PCM.PN ---
- General Info Date of Service: 09/01/21 Admission Dx/Problem (Free Text): CHF Subjective Update: Patient states overall she is feeling better. Still somewhat short of breath. - Review of Systems General: Reports: Weakness HEENT: Reports: No Symptoms Pulmonary: Reports: Cough, Wheezing Cardiovascular: Reports: Dyspnea on Exertion Gastrointestinal: Reports: No Symptoms Genitourinary: Reports: No Symptoms Musculoskeletal: Reports: Joint Pain Skin: Reports: Rash - Patient Data Vitals - Most Recent: Last Vital Signs Temp 36.3 C 09/01/21 10:00 Pulse 56 L 09/01/21 10:00 Resp 16 09/01/21 10:00 BP 117/59 L 09/01/21 10:00 Pulse Ox 94 L 09/01/21 10:00 Weight - Most Recent: 91.3 kg I&O - Last 24 Hours: Intake & Output 08/31/21 09/01/21 09/01/21 22:59 06:59 14:59 Intake Total 120 320 Balance 120 320 Lab Results Last 24 Hours: Laboratory Results - last 24 hr 08/31/21 08/31/21 08/31/21 Range/Units 09:48 09:58 09:58 WBC (4.0-10.0) x10^3/uL RBC (4.00-5.50) x10^6/uL Hgb (12.0-16.0) g/dL Hct (33.0-47.0) % MCV (78.0-93.0) fL MCH (26.0-32.0) pg MCHC (32.0-36.0) g/dL RDW Coeff of Patrick (10.0-15.0) % Plt Count (130-400) x10^3/uL Immature Gran % (Auto) (0.00-0.43) % Neut % (Auto) (50.0-80.0) % Lymph % (Auto) (25.0-50.0) % Baker % (Auto) (2.0-11.0) % Eos % (Auto) (0.0-4.0) % Baso % (Auto) (0.2-1.2) % Neut # (Auto) (1.8-7.7) x10^3/uL Lymph # (Auto) (1.0-4.8) x10^3/uL Baker # (Auto) (0.0-0.8) x10^3/uL Eos # (Auto) (0.0-0.5) x10^3/uL Baso # (Auto) (0.0-0.2) x10^3/uL Immature Gran # (Auto) (0.00-0.07) x10^3/uL PT 15.3 H (9.9-12.5) SEC INR 1.4 L (2.0-3.5) APTT (25.6-32.8) SEC Sodium 139 (136-145) mmol/L Potassium 3.7 (3.5-5.1) mmol/L Chloride 99 (98-107) mmol/L Carbon Dioxide 32 (21-32) mmol/L Anion Gap 11.7 (5-15) mmol/L BUN 25 H (7-18) mg/dL Creatinine 1.3 H (0.55-1.02) mg/dL Est Cr Clr Drug Dosing TNP Estimated GFR (MDRD) 40 Glucose 110 H (70-99) mg/dL Lactic Acid (0.4-2.0) mmol/L Calcium 9.0 (8.5-10.1) mg/dL Corrected Calcium 9.8 (8.5-10.1) mg/dL Phosphorus 3.7 (2.6-4.7) mg/dL Magnesium 1.9 (1.8-2.4) mg/dL Total Bilirubin 0.4 (0.2-1.0) mg/dL AST < 10 L (15-37) U/L ALT 9 L (14-59) U/L Alkaline Phosphatase 125 H (46-116) U/L Troponin I High Sens 6 (<=51) ng/L C-Reactive Protein 0.9 (<=0.9) mg/dL NT-Pro-B Natriuret Pep 379 (<=450) pg/mL Total Protein 7.5 (6.4-8.2) g/dL Albumin 3.0 L (3.4-5.0) g/dL Globulin 4.5 Albumin/Globulin Ratio 0.67 Urine Color (YELLOW) Urine Appearance (CLEAR) Urine pH (5.0-8.0) Ur Specific Trail Urine Protein (NEGATIVE) mg/dL Urine Glucose (UA) (NEGATIVE) mg/dL Urine Ketones (NEGATIVE) mg/dL Urine Occult Blood (NEGATIVE) Urine Nitrite (NEGATIVE) Urine Bilirubin (NEGATIVE) Urine Urobilinogen (0.2) EU/dL Ur Leukocyte Esterase (NEGATIVE) Urine RBC (NOT SEEN) /HPF Urine WBC (NOT SEEN) /HPF Ur Squamous Epith Cells (NOT SEEN) /HPF Amorphous Sediment Urine Bacteria (NOT SEEN) /HPF Urine Mucus (NOT SEEN) /LPF SARS CoV-2 RNA Rapid JERSON (NEGATIVE) 08/31/21 08/31/21 08/31/21 Range/Units 09:58 09:58 11:00 WBC (4.0-10.0) x10^3/uL RBC (4.00-5.50) x10^6/uL Hgb (12.0-16.0) g/dL Hct (33.0-47.0) % MCV (78.0-93.0) fL MCH (26.0-32.0) pg MCHC (32.0-36.0) g/dL RDW Coeff of Patrick (10.0-15.0) % Plt Count (130-400) x10^3/uL Immature Gran % (Auto) (0.00-0.43) % Neut % (Auto) (50.0-80.0) % Lymph % (Auto) (25.0-50.0) % Baker % (Auto) (2.0-11.0) % Eos % (Auto) (0.0-4.0) % Baso % (Auto) (0.2-1.2) % Neut # (Auto) (1.8-7.7) x10^3/uL Lymph # (Auto) (1.0-4.8) x10^3/uL Baker # (Auto) (0.0-0.8) x10^3/uL Eos # (Auto) (0.0-0.5) x10^3/uL Baso # (Auto) (0.0-0.2) x10^3/uL Immature Gran # (Auto) (0.00-0.07) x10^3/uL PT (9.9-12.5) SEC INR (2.0-3.5) APTT 29.1 (25.6-32.8) SEC Sodium (136-145) mmol/L Potassium (3.5-5.1) mmol/L Chloride (98-107) mmol/L Carbon Dioxide (21-32) mmol/L Anion Gap (5-15) mmol/L BUN (7-18) mg/dL Creatinine (0.55-1.02) mg/dL Est Cr Clr Drug Dosing Estimated GFR (MDRD) Glucose (70-99) mg/dL Lactic Acid 0.4 (0.4-2.0) mmol/L Calcium (8.5-10.1) mg/dL Corrected Calcium (8.5-10.1) mg/dL Phosphorus (2.6-4.7) mg/dL Magnesium (1.8-2.4) mg/dL Total Bilirubin (0.2-1.0) mg/dL AST (15-37) U/L ALT (14-59) U/L Alkaline Phosphatase (46-116) U/L Troponin I High Sens (<=51) ng/L C-Reactive Protein (<=0.9) mg/dL NT-Pro-B Natriuret Pep (<=450) pg/mL Total Protein (6.4-8.2) g/dL Albumin (3.4-5.0) g/dL Globulin Albumin/Globulin Ratio Urine Color Yellow (YELLOW) Urine Appearance Clear (CLEAR) Urine pH 5.5 (5.0-8.0) Ur Specific Trail 1.020 Urine Protein Negative (NEGATIVE) mg/dL Urine Glucose (UA) Negative (NEGATIVE) mg/dL Urine Ketones Negative (NEGATIVE) mg/dL Urine Occult Blood Moderate H (NEGATIVE) Urine Nitrite Negative (NEGATIVE) Urine Bilirubin Negative (NEGATIVE) Urine Urobilinogen 0.2 (0.2) EU/dL Ur Leukocyte Esterase Negative (NEGATIVE) Urine RBC 5-10 H (NOT SEEN) /HPF Urine WBC 0-5 (NOT SEEN) /HPF Ur Squamous Epith Cells Few H (NOT SEEN) /HPF Amorphous Sediment Moderate Urine Bacteria Few H (NOT SEEN) /HPF Urine Mucus Few H (NOT SEEN) /LPF SARS CoV-2 RNA Rapid JERSON (NEGATIVE) 08/31/21 09/01/21 09/01/21 Range/Units 11:00 08:23 08:23 WBC 9.6 (4.0-10.0) x10^3/uL RBC 4.66 (4.00-5.50) x10^6/uL Hgb 11.1 L (12.0-16.0) g/dL Hct 37.2 (33.0-47.0) % MCV 79.8 (78.0-93.0) fL MCH 23.8 L (26.0-32.0) pg MCHC 29.8 L (32.0-36.0) g/dL RDW Coeff of Patrick 26.7 H (10.0-15.0) % Plt Count 398 (130-400) x10^3/uL Immature Gran % (Auto) 0.20 (0.00-0.43) % Neut % (Auto) 80.8 H (50.0-80.0) % Lymph % (Auto) 12.1 L (25.0-50.0) % Baker % (Auto) 5.1 (2.0-11.0) % Eos % (Auto) 1.6 (0.0-4.0) % Baso % (Auto) 0.2 (0.2-1.2) % Neut # (Auto) 7.7 (1.8-7.7) x10^3/uL Lymph # (Auto) 1.2 (1.0-4.8) x10^3/uL Baker # (Auto) 0.5 (0.0-0.8) x10^3/uL Eos # (Auto) 0.2 (0.0-0.5) x10^3/uL Baso # (Auto) 0.0 (0.0-0.2) x10^3/uL Immature Gran # (Auto) 0.02 (0.00-0.07) x10^3/uL PT (9.9-12.5) SEC INR (2.0-3.5) APTT (25.6-32.8) SEC Sodium 139 (136-145) mmol/L Potassium 3.6 (3.5-5.1) mmol/L Chloride 100 (98-107) mmol/L Carbon Dioxide 30 (21-32) mmol/L Anion Gap 12.6 (5-15) mmol/L BUN 34 H (7-18) mg/dL Creatinine 1.5 H (0.55-1.02) mg/dL Est Cr Clr Drug Dosing 24.45 Estimated GFR (MDRD) 34 Glucose 163 H (70-99) mg/dL Lactic Acid (0.4-2.0) mmol/L Calcium 9.0 (8.5-10.1) mg/dL Corrected Calcium 9.9 (8.5-10.1) mg/dL Phosphorus (2.6-4.7) mg/dL Magnesium (1.8-2.4) mg/dL Total Bilirubin 0.4 (0.2-1.0) mg/dL AST < 10 L (15-37) U/L ALT 12 L (14-59) U/L Alkaline Phosphatase 120 H (46-116) U/L Troponin I High Sens (<=51) ng/L C-Reactive Protein (<=0.9) mg/dL NT-Pro-B Natriuret Pep 188 (<=450) pg/mL Total Protein 7.3 (6.4-8.2) g/dL Albumin 2.9 L (3.4-5.0) g/dL Globulin 4.4 Albumin/Globulin Ratio 0.66 Urine Color (YELLOW) Urine Appearance (CLEAR) Urine pH (5.0-8.0) Ur Specific Trail Urine Protein (NEGATIVE) mg/dL Urine Glucose (UA) (NEGATIVE) mg/dL Urine Ketones (NEGATIVE) mg/dL Urine Occult Blood (NEGATIVE) Urine Nitrite (NEGATIVE) Urine Bilirubin (NEGATIVE) Urine Urobilinogen (0.2) EU/dL Ur Leukocyte Esterase (NEGATIVE) Urine RBC (NOT SEEN) /HPF Urine WBC (NOT SEEN) /HPF Ur Squamous Epith Cells (NOT SEEN) /HPF Amorphous Sediment Urine Bacteria (NOT SEEN) /HPF Urine Mucus (NOT SEEN) /LPF SARS CoV-2 RNA Rapid JERSON Negative (NEGATIVE) 09/01/21 Range/Units 08:23 WBC (4.0-10.0) x10^3/uL RBC (4.00-5.50) x10^6/uL Hgb (12.0-16.0) g/dL Hct (33.0-47.0) % MCV (78.0-93.0) fL MCH (26.0-32.0) pg MCHC (32.0-36.0) g/dL RDW Coeff of Patrick (10.0-15.0) % Plt Count (130-400) x10^3/uL Immature Gran % (Auto) (0.00-0.43) % Neut % (Auto) (50.0-80.0) % Lymph % (Auto) (25.0-50.0) % Baker % (Auto) (2.0-11.0) % Eos % (Auto) (0.0-4.0) % Baso % (Auto) (0.2-1.2) % Neut # (Auto) (1.8-7.7) x10^3/uL Lymph # (Auto) (1.0-4.8) x10^3/uL Baker # (Auto) (0.0-0.8) x10^3/uL Eos # (Auto) (0.0-0.5) x10^3/uL Baso # (Auto) (0.0-0.2) x10^3/uL Immature Gran # (Auto) (0.00-0.07) x10^3/uL PT 16.3 H (9.9-12.5) SEC INR 1.5 L (2.0-3.5) APTT (25.6-32.8) SEC Sodium (136-145) mmol/L Potassium (3.5-5.1) mmol/L Chloride (98-107) mmol/L Carbon Dioxide (21-32) mmol/L Anion Gap (5-15) mmol/L BUN (7-18) mg/dL Creatinine (0.55-1.02) mg/dL Est Cr Clr Drug Dosing Estimated GFR (MDRD) Glucose (70-99) mg/dL Lactic Acid (0.4-2.0) mmol/L Calcium (8.5-10.1) mg/dL Corrected Calcium (8.5-10.1) mg/dL Phosphorus (2.6-4.7) mg/dL Magnesium (1.8-2.4) mg/dL Total Bilirubin (0.2-1.0) mg/dL AST (15-37) U/L ALT (14-59) U/L Alkaline Phosphatase (46-116) U/L Troponin I High Sens (<=51) ng/L C-Reactive Protein (<=0.9) mg/dL NT-Pro-B Natriuret Pep (<=450) pg/mL Total Protein (6.4-8.2) g/dL Albumin (3.4-5.0) g/dL Globulin Albumin/Globulin Ratio Urine Color (YELLOW) Urine Appearance (CLEAR) Urine pH (5.0-8.0) Ur Specific Trail Urine Protein (NEGATIVE) mg/dL Urine Glucose (UA) (NEGATIVE) mg/dL Urine Ketones (NEGATIVE) mg/dL Urine Occult Blood (NEGATIVE) Urine Nitrite (NEGATIVE) Urine Bilirubin (NEGATIVE) Urine Urobilinogen (0.2) EU/dL Ur Leukocyte Esterase (NEGATIVE) Urine RBC (NOT SEEN) /HPF Urine WBC (NOT SEEN) /HPF Ur Squamous Epith Cells (NOT SEEN) /HPF Amorphous Sediment Urine Bacteria (NOT SEEN) /HPF Urine Mucus (NOT SEEN) /LPF SARS CoV-2 RNA Rapid JERSON (NEGATIVE) Teodoro Results Last 24 Hours: Microbiology 08/31/21 10:04 Aerobic Blood Culture - Preliminary Blood - Venous - Lab Draw NO GROWTH AFTER 1 DAY Anaerobic Blood Culture - Final 08/31/21 09:58 Aerobic Blood Culture - Preliminary Blood - Venous NO GROWTH AFTER 1 DAY Anaerobic Blood Culture - Final Med Orders - Current: Current Medications Acetaminophen (Acetaminophen 325 Mg Tab) 650 mg PO Q6H PRN PRN Reason: Pain/Fever Last Admin: 09/01/21 01:50 Dose: 650 mg Documented by: Albuterol/Ipratropium (Albuterol/Ipratropium 3.0-0.5 Mg/3 Ml Neb Soln) 3 ml NEB Q4HRRT PRN PRN Reason: Shortness of Breath Amlodipine Besylate (Amlodipine 5 Mg Tab) 5 mg PO DAILY [facility] Last Admin: 09/01/21 08:48 Dose: 5 mg Documented by: Aspirin (Aspirin 81 Mg Tab.Ec) 81 mg PO DAILY [facility] Last Admin: 09/01/21 08:49 Dose: 81 mg Documented by: Atorvastatin Calcium (Atorvastatin 10 Mg Tab) 10 mg PO BEDTIME [facility] Last Admin: 08/31/21 19:34 Dose: 10 mg Documented by: Calcium Carbonate/Glycine (Calcium Carbonate 750 Mg Tab.Chew) 750 mg PO DAILY PRN PRN Reason: Dyspepsia Last Admin: 08/31/21 16:27 Dose: 750 mg Documented by: Carbidopa/Levodopa (Carbidopa/Levodopa 25-100 Mg Tab) 1 tab PO TID [facility] Last Admin: 09/01/21 08:48 Dose: 1 tab Documented by: Clonazepam (Clonazepam 0.5 Mg Tab) 0.5 mg PO BID [facility] Last Admin: 09/01/21 08:49 Dose: 0.5 mg Documented by: Duloxetine HCl (Duloxetine 60 Mg Cap) 60 mg PO DAILY [facility] Last Admin: 09/01/21 08:48 Dose: 60 mg Documented by: Ferrous Sulfate (Ferrous Sulfate 325 Mg Tab) 325 mg PO DAILY [facility] Last Admin: 09/01/21 08:49 Dose: 325 mg Documented by: Furosemide (Furosemide 20 Mg/2 Ml Vial) 20 mg IV DAILY [facility] Last Admin: 09/01/21 08:51 Dose: 20 mg Documented by: Hydralazine HCl (Hydralazine 10 Mg Tab) 10 mg PO TID [facility] Last Admin: 09/01/21 08:49 Dose: 10 mg Documented by: Metoprolol Tartrate (Metoprolol Tartrate 50 Mg Tab) 100 mg PO DAILY [facility] Last Admin: 09/01/21 08:47 Dose: 100 mg Documented by: Miconazole (Miconazole 2% Top Powder 45 Gm Container) 0 gm TOP BID [facility] Last Admin: 09/01/21 08:51 Dose: 1 applic Documented by: Pharmacy Consult (Pharmacy Consult Order) 1 each .XX ASDIRECTED [facility] Sodium Chloride (Sodium Chloride 0.9% 10 Ml Syringe) 10 ml FLUSH ASDIRECTED PRN PRN Reason: Keep Vein Open Last Admin: 09/01/21 01:52 Dose: 10 ml Documented by: Warfarin Sodium (Warfarin 2.5 Mg Tab) 2.5 mg PO DAILY@1999 [facility] Stop: 09/01/21 20:01 Discontinued Medications Non-Formulary Medication (Levalbuterol Tartrate [Xopenex Hfa]) 2 puff PO Q4HR PRN PRN Reason: Wheezing Warfarin Sodium (Warfarin 2.5 Mg Tab) 2.5 mg PO DAILY [facility] Warfarin Sodium (Warfarin 5 Mg Tab) 5 mg PO DAILY@1999 [facility] Stop: 08/31/21 20:01 Last Admin: 08/31/21 19:34 Dose: 5 mg Documented by: - Exam Urinary Catheter Total Time: 0Days 12Hours General: Alert HEENT: Pupils Equal Neck: Supple Lungs: Rales, Wheezing Cardiovascular: Irregular Rhythm GI/Abdominal Exam: Normal Bowel Sounds Skin: Warm, Dry, Rash (intertrig candidiasis) Psy/Mental Status: Alert - Patient Data Lab Results Last 24 hrs: Laboratory Results - last 24 hr 08/31/21 08/31/21 08/31/21 Range/Units 09:48 09:58 09:58 WBC (4.0-10.0) x10^3/uL RBC (4.00-5.50) x10^6/uL Hgb (12.0-16.0) g/dL Hct (33.0-47.0) % MCV (78.0-93.0) fL MCH (26.0-32.0) pg MCHC (32.0-36.0) g/dL RDW Coeff of Patrick (10.0-15.0) % Plt Count (130-400) x10^3/uL Immature Gran % (Auto) (0.00-0.43) % Neut % (Auto) (50.0-80.0) % Lymph % (Auto) (25.0-50.0) % Baker % (Auto) (2.0-11.0) % Eos % (Auto) (0.0-4.0) % Baso % (Auto) (0.2-1.2) % Neut # (Auto) (1.8-7.7) x10^3/uL Lymph # (Auto) (1.0-4.8) x10^3/uL Baker # (Auto) (0.0-0.8) x10^3/uL Eos # (Auto) (0.0-0.5) x10^3/uL Baso # (Auto) (0.0-0.2) x10^3/uL Immature Gran # (Auto) (0.00-0.07) x10^3/uL PT 15.3 H (9.9-12.5) SEC INR 1.4 L (2.0-3.5) APTT (25.6-32.8) SEC Sodium 139 (136-145) mmol/L Potassium 3.7 (3.5-5.1) mmol/L Chloride 99 (98-107) mmol/L Carbon Dioxide 32 (21-32) mmol/L Anion Gap 11.7 (5-15) mmol/L BUN 25 H (7-18) mg/dL Creatinine 1.3 H (0.55-1.02) mg/dL Est Cr Clr Drug Dosing TNP Estimated GFR (MDRD) 40 Glucose 110 H (70-99) mg/dL Lactic Acid (0.4-2.0) mmol/L Calcium 9.0 (8.5-10.1) mg/dL Corrected Calcium 9.8 (8.5-10.1) mg/dL Phosphorus 3.7 (2.6-4.7) mg/dL Magnesium 1.9 (1.8-2.4) mg/dL Total Bilirubin 0.4 (0.2-1.0) mg/dL AST < 10 L (15-37) U/L ALT 9 L (14-59) U/L Alkaline Phosphatase 125 H (46-116) U/L Troponin I High Sens 6 (<=51) ng/L C-Reactive Protein 0.9 (<=0.9) mg/dL NT-Pro-B Natriuret Pep 379 (<=450) pg/mL Total Protein 7.5 (6.4-8.2) g/dL Albumin 3.0 L (3.4-5.0) g/dL Globulin 4.5 Albumin/Globulin Ratio 0.67 Urine Color (YELLOW) Urine Appearance (CLEAR) Urine pH (5.0-8.0) Ur Specific Trail Urine Protein (NEGATIVE) mg/dL Urine Glucose (UA) (NEGATIVE) mg/dL Urine Ketones (NEGATIVE) mg/dL Urine Occult Blood (NEGATIVE) Urine Nitrite (NEGATIVE) Urine Bilirubin (NEGATIVE) Urine Urobilinogen (0.2) EU/dL Ur Leukocyte Esterase (NEGATIVE) Urine RBC (NOT SEEN) /HPF Urine WBC (NOT SEEN) /HPF Ur Squamous Epith Cells (NOT SEEN) /HPF Amorphous Sediment Urine Bacteria (NOT SEEN) /HPF Urine Mucus (NOT SEEN) /LPF SARS CoV-2 RNA Rapid JERSON (NEGATIVE) 08/31/21 08/31/21 08/31/21 Range/Units 09:58 09:58 11:00 WBC (4.0-10.0) x10^3/uL RBC (4.00-5.50) x10^6/uL Hgb (12.0-16.0) g/dL Hct (33.0-47.0) % MCV (78.0-93.0) fL MCH (26.0-32.0) pg MCHC (32.0-36.0) g/dL RDW Coeff of Patrick (10.0-15.0) % Plt Count (130-400) x10^3/uL Immature Gran % (Auto) (0.00-0.43) % Neut % (Auto) (50.0-80.0) % Lymph % (Auto) (25.0-50.0) % Baker % (Auto) (2.0-11.0) % Eos % (Auto) (0.0-4.0) % Baso % (Auto) (0.2-1.2) % Neut # (Auto) (1.8-7.7) x10^3/uL Lymph # (Auto) (1.0-4.8) x10^3/uL Baker # (Auto) (0.0-0.8) x10^3/uL Eos # (Auto) (0.0-0.5) x10^3/uL Baso # (Auto) (0.0-0.2) x10^3/uL Immature Gran # (Auto) (0.00-0.07) x10^3/uL PT (9.9-12.5) SEC INR (2.0-3.5) APTT 29.1 (25.6-32.8) SEC Sodium (136-145) mmol/L Potassium (3.5-5.1) mmol/L Chloride (98-107) mmol/L Carbon Dioxide (21-32) mmol/L Anion Gap (5-15) mmol/L BUN (7-18) mg/dL Creatinine (0.55-1.02) mg/dL Est Cr Clr Drug Dosing Estimated GFR (MDRD) Glucose (70-99) mg/dL Lactic Acid 0.4 (0.4-2.0) mmol/L Calcium (8.5-10.1) mg/dL Corrected Calcium (8.5-10.1) mg/dL Phosphorus (2.6-4.7) mg/dL Magnesium (1.8-2.4) mg/dL Total Bilirubin (0.2-1.0) mg/dL AST (15-37) U/L ALT (14-59) U/L Alkaline Phosphatase (46-116) U/L Troponin I High Sens (<=51) ng/L C-Reactive Protein (<=0.9) mg/dL NT-Pro-B Natriuret Pep (<=450) pg/mL Total Protein (6.4-8.2) g/dL Albumin (3.4-5.0) g/dL Globulin Albumin/Globulin Ratio Urine Color Yellow (YELLOW) Urine Appearance Clear (CLEAR) Urine pH 5.5 (5.0-8.0) Ur Specific Trail 1.020 Urine Protein Negative (NEGATIVE) mg/dL Urine Glucose (UA) Negative (NEGATIVE) mg/dL Urine Ketones Negative (NEGATIVE) mg/dL Urine Occult Blood Moderate H (NEGATIVE) Urine Nitrite Negative (NEGATIVE) Urine Bilirubin Negative (NEGATIVE) Urine Urobilinogen 0.2 (0.2) EU/dL Ur Leukocyte Esterase Negative (NEGATIVE) Urine RBC 5-10 H (NOT SEEN) /HPF Urine WBC 0-5 (NOT SEEN) /HPF Ur Squamous Epith Cells Few H (NOT SEEN) /HPF Amorphous Sediment Moderate Urine Bacteria Few H (NOT SEEN) /HPF Urine Mucus Few H (NOT SEEN) /LPF SARS CoV-2 RNA Rapid JERSON (NEGATIVE) 08/31/21 09/01/21 09/01/21 Range/Units 11:00 08:23 08:23 WBC 9.6 (4.0-10.0) x10^3/uL RBC 4.66 (4.00-5.50) x10^6/uL Hgb 11.1 L (12.0-16.0) g/dL Hct 37.2 (33.0-47.0) % MCV 79.8 (78.0-93.0) fL MCH 23.8 L (26.0-32.0) pg MCHC 29.8 L (32.0-36.0) g/dL RDW Coeff of Patrick 26.7 H (10.0-15.0) % Plt Count 398 (130-400) x10^3/uL Immature Gran % (Auto) 0.20 (0.00-0.43) % Neut % (Auto) 80.8 H (50.0-80.0) % Lymph % (Auto) 12.1 L (25.0-50.0) % Baker % (Auto) 5.1 (2.0-11.0) % Eos % (Auto) 1.6 (0.0-4.0) % Baso % (Auto) 0.2 (0.2-1.2) % Neut # (Auto) 7.7 (1.8-7.7) x10^3/uL Lymph # (Auto) 1.2 (1.0-4.8) x10^3/uL Baker # (Auto) 0.5 (0.0-0.8) x10^3/uL Eos # (Auto) 0.2 (0.0-0.5) x10^3/uL Baso # (Auto) 0.0 (0.0-0.2) x10^3/uL Immature Gran # (Auto) 0.02 (0.00-0.07) x10^3/uL PT (9.9-12.5) SEC INR (2.0-3.5) APTT (25.6-32.8) SEC Sodium 139 (136-145) mmol/L Potassium 3.6 (3.5-5.1) mmol/L Chloride 100 (98-107) mmol/L Carbon Dioxide 30 (21-32) mmol/L Anion Gap 12.6 (5-15) mmol/L BUN 34 H (7-18) mg/dL Creatinine 1.5 H (0.55-1.02) mg/dL Est Cr Clr Drug Dosing 24.45 Estimated GFR (MDRD) 34 Glucose 163 H (70-99) mg/dL Lactic Acid (0.4-2.0) mmol/L Calcium 9.0 (8.5-10.1) mg/dL Corrected Calcium 9.9 (8.5-10.1) mg/dL Phosphorus (2.6-4.7) mg/dL Magnesium (1.8-2.4) mg/dL Total Bilirubin 0.4 (0.2-1.0) mg/dL AST < 10 L (15-37) U/L ALT 12 L (14-59) U/L Alkaline Phosphatase 120 H (46-116) U/L Troponin I High Sens (<=51) ng/L C-Reactive Protein (<=0.9) mg/dL NT-Pro-B Natriuret Pep 188 (<=450) pg/mL Total Protein 7.3 (6.4-8.2) g/dL Albumin 2.9 L (3.4-5.0) g/dL Globulin 4.4 Albumin/Globulin Ratio 0.66 Urine Color (YELLOW) Urine Appearance (CLEAR) Urine pH (5.0-8.0) Ur Specific Trail Urine Protein (NEGATIVE) mg/dL Urine Glucose (UA) (NEGATIVE) mg/dL Urine Ketones (NEGATIVE) mg/dL Urine Occult Blood (NEGATIVE) Urine Nitrite (NEGATIVE) Urine Bilirubin (NEGATIVE) Urine Urobilinogen (0.2) EU/dL Ur Leukocyte Esterase (NEGATIVE) Urine RBC (NOT SEEN) /HPF Urine WBC (NOT SEEN) /HPF Ur Squamous Epith Cells (NOT SEEN) /HPF Amorphous Sediment Urine Bacteria (NOT SEEN) /HPF Urine Mucus (NOT SEEN) /LPF SARS CoV-2 RNA Rapid JERSON Negative (NEGATIVE) 09/01/21 Range/Units 08:23 WBC (4.0-10.0) x10^3/uL RBC (4.00-5.50) x10^6/uL Hgb (12.0-16.0) g/dL Hct (33.0-47.0) % MCV (78.0-93.0) fL MCH (26.0-32.0) pg MCHC (32.0-36.0) g/dL RDW Coeff of Patrick (10.0-15.0) % Plt Count (130-400) x10^3/uL Immature Gran % (Auto) (0.00-0.43) % Neut % (Auto) (50.0-80.0) % Lymph % (Auto) (25.0-50.0) % Baker % (Auto) (2.0-11.0) % Eos % (Auto) (0.0-4.0) % Baso % (Auto) (0.2-1.2) % Neut # (Auto) (1.8-7.7) x10^3/uL Lymph # (Auto) (1.0-4.8) x10^3/uL Baker # (Auto) (0.0-0.8) x10^3/uL Eos # (Auto) (0.0-0.5) x10^3/uL Baso # (Auto) (0.0-0.2) x10^3/uL Immature Gran # (Auto) (0.00-0.07) x10^3/uL PT 16.3 H (9.9-12.5) SEC INR 1.5 L (2.0-3.5) APTT (25.6-32.8) SEC Sodium (136-145) mmol/L Potassium (3.5-5.1) mmol/L Chloride (98-107) mmol/L Carbon Dioxide (21-32) mmol/L Anion Gap (5-15) mmol/L BUN (7-18) mg/dL Creatinine (0.55-1.02) mg/dL Est Cr Clr Drug Dosing Estimated GFR (MDRD) Glucose (70-99) mg/dL Lactic Acid (0.4-2.0) mmol/L Calcium (8.5-10.1) mg/dL Corrected Calcium (8.5-10.1) mg/dL Phosphorus (2.6-4.7) mg/dL Magnesium (1.8-2.4) mg/dL Total Bilirubin (0.2-1.0) mg/dL AST (15-37) U/L ALT (14-59) U/L Alkaline Phosphatase (46-116) U/L Troponin I High Sens (<=51) ng/L C-Reactive Protein (<=0.9) mg/dL NT-Pro-B Natriuret Pep (<=450) pg/mL Total Protein (6.4-8.2) g/dL Albumin (3.4-5.0) g/dL Globulin Albumin/Globulin Ratio Urine Color (YELLOW) Urine Appearance (CLEAR) Urine pH (5.0-8.0) Ur Specific Trail Urine Protein (NEGATIVE) mg/dL Urine Glucose (UA) (NEGATIVE) mg/dL Urine Ketones (NEGATIVE) mg/dL Urine Occult Blood (NEGATIVE) Urine Nitrite (NEGATIVE) Urine Bilirubin (NEGATIVE) Urine Urobilinogen (0.2) EU/dL Ur Leukocyte Esterase (NEGATIVE) Urine RBC (NOT SEEN) /HPF Urine WBC (NOT SEEN) /HPF Ur Squamous Epith Cells (NOT SEEN) /HPF Amorphous Sediment Urine Bacteria (NOT SEEN) /HPF Urine Mucus (NOT SEEN) /LPF SARS CoV-2 RNA Rapid EJRSON (NEGATIVE) Result Diagrams: 09/01/21 08:23 09/01/21 08:23 Teodoro Results Last 24 hrs: Microbiology 08/31/21 10:04 Aerobic Blood Culture - Preliminary Blood - Venous - Lab Draw NO GROWTH AFTER 1 DAY Anaerobic Blood Culture - Final 08/31/21 09:58 Aerobic Blood Culture - Preliminary Blood - Venous NO GROWTH AFTER 1 DAY Anaerobic Blood Culture - Final Sepsis Event Note - Evaluation Sepsis Screening Result: No Definite Risk - Focused Exam Vital Signs: Vital Signs Temp Pulse Pulse Resp BP BP Pulse Ox 09/01/21 10:00 36.3 C 56 L 16 117/59 L 94 L 09/01/21 08:49 126/57 L 09/01/21 08:48 126/57 L 09/01/21 08:47 78 126/57 L 09/01/21 06:00 36.3 C 76 20 126/57 L 09/01/21 02:00 35.9 C L 83 18 126/57 L 89 L - Problem List & Annotations (1) Congestive heart failure SNOMED Code(s): 21931048 Code(s): I50.9 - HEART FAILURE, UNSPECIFIED Status: Acute Current Visit: Yes Qualifiers: Heart failure type: diastolic Heart failure chronicity: acute on chronic Qualified Code(s): I50.33 - Acute on chronic diastolic (congestive) heart failure Annotation/Comment:: - Patient initially admitted with CHF exacerbation. - Symptoms resolved and weight actually lower than baseline today. - Will continue to hold lasix. She maybe would not even need this at home if she was adherent to outpatient fluid and salt restriction. - D/C potassium as this was normal and she is not currently on lasix. - Outpatient Echo is already scheduled for follow-up. (2) Asthma SNOMED Code(s): 472235373 Code(s): J45.909 - UNSPECIFIED ASTHMA, UNCOMPLICATED Status: Chronic Current Visit: No Qualifiers: Asthma severity: moderate Asthma persistence: persistent Asthma complication type: uncomplicated Qualified Code(s): J45.40 - Moderate persistent asthma, uncomplicated Annotation/Comment:: - No current symptoms of an asthma exacerbation. - Continue home inhalers. (3) Parkinson disease SNOMED Code(s): 34548383 Code(s): G20 - PARKINSON'S DISEASE Status: Chronic Current Visit: No Annotation/Comment:: - Presumed diagnosis based on patient's physical exam; has not been formally diagnosed. - Likely contributes to her weakness and difficulty ambulating. (4) Urinary incontinence SNOMED Code(s): 225981177 Code(s): R32 - UNSPECIFIED URINARY INCONTINENCE Status: Chronic Current Visit: Yes Qualifiers: Urinary Incontinence type: mixed stress and urge incontinence Qualified Code(s): N39.46 - Mixed incontinence - Problem List Review Problem List Initiated/Reviewed/Updated: Yes - Assessment Assessment:: CHF - acute exacerbation COPD - asthma Parkinson's Urinary incontinence - Plan Plan:: Will discontinue telemetry Will change vitals to routine Continue with IS Albuterol prn
[2021-09-01] MEDS: atorvaSTATin 10 MG Tab PO SCH (19:47)
[2021-09-02 07:14] LABS: ANION GAP 8.8 mmol/L (5-15)
[2021-09-02] MEDS ORDERED: Sodium Chloride 0.9% 1,000 ML IV SCH (07:30)
[2021-09-02] MEDS: Metoprolol Tartrate 50 MG Tab PO SCH (08:14)
[2021-09-02] MEDS: Ferrous Sulfate 325 MG Tab PO SCH (08:15)
[2021-09-02] MEDS: DULoxetine 60 MG Cap PO SCH (08:15)
[2021-09-02] MEDS: Aspirin 81 MG Tab.EC PO SCH (08:16)
[2021-09-02] MEDS: ClonazePAM 0.5 MG Tab PO SCH ×2 (08:16→19:52)
[2021-09-02] MEDS: amLODIPine 5 MG Tab PO SCH (08:16)
[2021-09-02] MEDS: hydrALAZINE 10 MG Tab PO SCH ×3 (08:16→19:52)
[2021-09-02] MEDS: Miconazole 2% Top Powder 45 GM Container TOP SCH ×2 (08:17→20:04)
[2021-09-02] MEDS: Carbidopa/Levodopa 25-100 MG Tab PO SCH ×3 (08:17→19:51)
[2021-09-02] MEDS: Furosemide 20 MG/2 ML VIAL IV SCH (08:17)
[2021-09-02] MEDS: atorvaSTATin 10 MG Tab PO SCH (19:51)
[2021-09-02] MEDS: Sodium Chloride 0.9% 10 ML Syringe FLUSH PRN (19:56)
[2021-09-02] MEDS ORDERED: Warfarin 2.5 MG Tab PO SCH (20:00)
--- NOTE | 2021-09-03 02:49 | PN ---
Progress Note for APRIL PUENTES Date: 09/02/2021 Room #: [id number] CHIEF COMPLAINT: 1. Shortness of breath. 2. Weakness. 3. Nausea. HISTORY OF PRESENT ILLNESS: Hospital day #3 on a 76-year-old female patient who was admitted through the retirement a couple days ago for worsening shortness of breath, weakness, nausea. The patient states she is feeling better today. She still feels short of breath with activity. She has not required any oxygen. The patient is currently on IV Lasix for acute on chronic CHF exacerbation. The patient has not had any headaches, dizziness, or lightheadedness. She has a dry cough. No chest pain or palpitations. No leg swelling. The patient denies any abdominal pain. No nausea, vomiting, or diarrhea. The patient does have open areas on her skin in the groin and underneath each breast. The patient does not think she has had any fevers or chills. REVIEW OF SYSTEMS: See HPI. PHYSICAL EXAMINATION: Vital Signs: Weight 204, temperature 97.6, pulse 64, blood pressure 130/90, respiratory rate 18, and oxygen 91% on room air. Skin: Excoriations under each breast; bilateral groins, no drainage, areas are erythematous and crusting. Respiratory: Lungs are decreased throughout, otherwise clear. Cardiovascular: Regular rate and rhythm, no murmur. Abdomen: Soft, nontender. Bowel sounds are hypoactive x4. Extremities: Trace edema, bilateral lower extremities. Neurological: The patient is alert. The patient is very hard of hearing. No new focal neurological deficits. LABORATORY WORK: 1. Blood cell count 8.3, hemoglobin 9.7, hematocrit 32.4, and platelets 358,000. 2. BMP: Sodium 141, potassium 3.8, chloride 103, CO2 of 33, anion gap 8.8, BUN 31, creatinine 1.3, GFR 40, calcium 8.8. ASSESSMENT: 1. Acute on chronic diastolic heart failure. 2. Acute kidney injury. 3. Subtherapeutic INR. 4. Longstanding persistent atrial fibrillation. 5. Essential hypertension. 6. Mixed hyperlipidemia. 7. Parkinson disease. 8. Coronary artery disease. PLAN: Hospital day #3 on a 76-year-old female patient who was admitted to the acute care floor at [facility] for the above diagnoses. The patient is still up 4 pounds in weight. Continue with IV Lasix as scheduled. May consider fluid restriction. Recheck laboratory work tomorrow. The patient will be seen by Physical and Occupational Therapy today. Plan at this point is for the patient to be admitted to the [facility]. The [facility] has been notified of potential admission. The patient is a code 2. The patient does not wish to transfer to higher level of care should the need arise. This patient was seen and examined by me as an [facility] provider. TB: 09/02/2021 07:40:57 MODL: 09/03/2021 02:41:51 /[id number]
[2021-09-03 06:45] VITALS: BP 137/71; PULSE 68
[2021-09-03] MEDS: ClonazePAM 0.5 MG Tab PO SCH (07:41)
[2021-09-03] MEDS: Metoprolol Tartrate 50 MG Tab PO SCH (07:41)
[2021-09-03] MEDS: hydrALAZINE 10 MG Tab PO SCH (07:41)
[2021-09-03] MEDS: DULoxetine 60 MG Cap PO SCH (07:42)
[2021-09-03] MEDS: Aspirin 81 MG Tab.EC PO SCH (07:42)
[2021-09-03] MEDS: Ferrous Sulfate 325 MG Tab PO SCH (07:42)
[2021-09-03] MEDS: Carbidopa/Levodopa 25-100 MG Tab PO SCH (07:42)
[2021-09-03] MEDS: amLODIPine 5 MG Tab PO SCH (07:42)
[2021-09-03] MEDS: Furosemide 20 MG/2 ML VIAL IV SCH (07:43)
[2021-09-03] MEDS: Miconazole 2% Top Powder 45 GM Container TOP SCH (07:43)
[2021-09-03] MEDS ORDERED: [UNRECOGNIZED DRUG - REMARK] SCH (10:45)
--- NOTE | 2021-09-03 14:07 | DISCH ---
ADMITTING DIAGNOSES: 1. Acute on chronic diastolic heart failure. 2. Acute kidney injury. 3. Subtherapeutic INR. 4. Long-standing persistent atrial fibrillation. 5. Hypertension. 6. Mixed hyperlipidemia. 7. Parkinson disease. 8. Coronary artery disease. DISCHARGE DIAGNOSES: 1. Acute on chronic diastolic heart failure, improved. 2. Acute kidney injury - resolved. 3. Subtherapeutic INR - resolved. 4. Long-standing persistent atrial fibrillation. 5. Hypertension. 6. Hyperlipidemia. 7. Parkinson disease. 8. Coronary artery disease. HISTORY OF PRESENT ILLNESS: A 76-year-old female patient had presented to the emergency room [facility] via EMS for shortness of breath, weakness, and nausea on 08/31/2021. The patient was found to be in congestive heart failure and acute kidney injury; therefore, she was admitted to the acute care floor. BRIEF HOSPITAL COURSE: The patient remained hemodynamically stable and afebrile. The patient was given IV Lasix daily, which greatly improved her breathing status. Her INR was corrected per pharmacy. Kidney function improved. The patient continues to be weak. The patient is being discharged to a local [facility] for [facility]. CONSULTATIONS: Case Management, Physical and Occupational Therapy. DIET: Heart healthy, low sodium. ACTIVITY: As tolerated. DISCHARGE LABORATORY WORK: 1. CBC: White blood cell count 7.5, hemoglobin 9.5, hematocrit 32.0, platelets 331,000. 2. BMP: Sodium 141, potassium 4.0, chloride 104, CO2 of 32, anion gap 9.0, BUN 28, creatinine 1.4, GFR 36, glucose 101, calcium 8.8. IMAGING STUDIES: None. DISCHARGE MEDICATIONS: 1. Acetaminophen 650 mg 1 tablet p.o. every 6 hours as needed. 2. Amlodipine 5 mg 1 tablet p.o. daily. 3. Aspirin 81 mg 1 tablet p.o. daily. 4. Atorvastatin 10 mg 1 tablet p.o. daily. 5. Calcium carbonate 750 mg p.o. daily as needed. 6. Sinemet 1 tablet p.o. 3 times daily. 7. Clonazepam 0.5 mg 1 tablet p.o. twice daily. 8. Duloxetine 60 mg 1 tablet p.o. daily. 9. Ferrous sulfate 325 mg 1 tablet p.o. daily. 10.Furosemide 20 mg 1 tablet p.o. twice daily. 11.Hydralazine 10 mg 1 tablet p.o. 3 times daily. 12.Metoprolol 10 mg 1 tablet p.o. daily. 13.Coumadin per [facility]. REVIEW OF SYSTEMS: Constitutional: Negative. Respiratory: Negative. Cardiovascular: Negative. Abdomen: Negative. Skin: Excoriations under both breasts and groin. Neurological: Negative. DISCHARGE PHYSICAL EXAMINATION: Vital Signs: Weight 204 pounds, temperature 97.3, pulse 68, blood pressure 137/71, respiratory rate 22, oxygen saturation 93%. Skin: The patient has open areas and excoriations under each breast, also groin and abdominal fold. Respiratory: Lungs are decreased but clear throughout. Cardiovascular: Irregularly irregular rhythm. Regular rate. Abdomen: Soft, nontender. Bowel sounds are hypoactive x4. Extremities: No edema. Neurological: The patient is alert. The patient is cooperative. No new focal neurological deficits. ASSESSMENT: 1. Acute on chronic congestive heart failure - improved. 2. Acute kidney injury - stable. 3. Subtherapeutic INR, improving. 4. Long-standing persistent atrial fibrillation. 5. Hypertension. 6. Mixed hyperlipidemia. 7. Parkinson disease. 8. Coronary artery disease. PLAN: The patient will be discharged to [facility] today. No changes with any medications. The patient is a code 2. The patient will be seen by Physical Therapy while at the [facility]. The patient's placement at the [facility] is permanent. The patient will be seen by me this for usp admission. TB: 09/03/2021 07:46:08 MODL: 09/03/2021 13:55:30 /[id number]
== END 2021-09-03 10:35 | DRG 291 ==
LOC: VM.ED 09:13 → VM.MS 11:35 → UNDODISIN 09-03 10:35
PROVIDERS: ADMIT Nurse Practitioner Family; ATTEND Nurse Practitioner Family
DX: I13.0 Hypertensive heart and chronic kidney disease with heart failure and stage 1 through stage 4 chronic kidney disease, or unspecified chronic kidney disease (principal); R07.9 Chest pain, unspecified; I50.33 Acute on chronic diastolic (congestive) heart failure; N17.9 Acute kidney failure, unspecified; I48.11 Longstanding persistent atrial fibrillation; R79.1 Abnormal coagulation profile; E78.00 Pure hypercholesterolemia, unspecified; I25.2 Old myocardial infarction; E78.2 Mixed hyperlipidemia; J45.909 Unspecified asthma, uncomplicated; K59.09 Other constipation; G20 Parkinson's disease; I25.10 Atherosclerotic heart disease of native coronary artery without angina pectoris; G89.29 Other chronic pain; M54.9 Dorsalgia, unspecified; H91.90 Unspecified hearing loss, unspecified ear; F41.9 Anxiety disorder, unspecified; I34.0 Nonrheumatic mitral (valve) insufficiency; J45.40 Moderate persistent asthma, uncomplicated; E61.1 Iron deficiency; Z85.41 Personal history of malignant neoplasm of cervix uteri; Z95.1 Presence of aortocoronary bypass graft; N39.46 Mixed incontinence; K21.9 Gastro-esophageal reflux disease without esophagitis; Z91.010 Allergy to peanuts; K44.9 Diaphragmatic hernia without obstruction or gangrene; Z88.2 Allergy status to sulfonamides; Z88.8 Allergy status to other drugs, medicaments and biological substances; Z91.048 Other nonmedicinal substance allergy status; N18.9 Chronic kidney disease, unspecified; E55.9 Vitamin D deficiency, unspecified; F41.1 Generalized anxiety disorder; D50.9 Iron deficiency anemia, unspecified; E53.8 Deficiency of other specified B group vitamins; Z20.822 Contact with and (suspected) exposure to COVID-19; Z88.5 Allergy status to narcotic agent; Z91.040 Latex allergy status; Z79.82 Long term (current) use of aspirin; Z79.01 Long term (current) use of anticoagulants; Z79.899 Other long term (current) drug therapy; Z88.0 Allergy status to penicillin; Z91.041 Radiographic dye allergy status; Z98.51 Tubal ligation status; Z90.49 Acquired absence of other specified parts of digestive tract; Z98.890 Other specified postprocedural states
CPT/HCPCS: 36415; 71045; 80053; 81001; 83605; 83735; 83880; 84100; 84484; 85025; 85610; 85730; 86140; 87040 ×2; 93005; 99285; U0002; 80048; 90662; 93010; 99284; A9270-GY; G0008; J1940

== ENCOUNTER 2022-12-12 15:06 | Emergency (ER) | payer MEDICARE, OTHER ==
[2022-12-12 15:13] VITALS: BP 139/64; PULSE 74
[2022-12-12 15:59] LABS: CHLORIDE,CL 99 mmol/L (98-107); SODIUM,NA 140 mmol/L (136-145)
[2022-12-12 16:03] LABS: ANION GAP 9.7 mmol/L (5-15); ESTIMATED GFR 51 mL/min (>=60)
== END 2022-12-12 17:52 | disposition home or self-care (01) ==
LOC: VM.ED 15:06
DX: R51.9 Headache, unspecified (principal); M54.50 Low back pain, unspecified; I25.2 Old myocardial infarction; J45.909 Unspecified asthma, uncomplicated; I12.9 Hypertensive chronic kidney disease with stage 1 through stage 4 chronic kidney disease, or unspecified chronic kidney disease; N18.9 Chronic kidney disease, unspecified; E78.00 Pure hypercholesterolemia, unspecified; Z91.041 Radiographic dye allergy status; Z91.040 Latex allergy status; Z88.5 Allergy status to narcotic agent; Z91.010 Allergy to peanuts; Z88.0 Allergy status to penicillin; Z88.2 Allergy status to sulfonamides; Z88.8 Allergy status to other drugs, medicaments and biological substances; Z91.09 Other allergy status, other than to drugs and biological substances; Z79.82 Long term (current) use of aspirin; Z79.01 Long term (current) use of anticoagulants; Z79.899 Other long term (current) drug therapy; W22.8XXA Striking against or struck by other objects, initial encounter; W19.XXXA Unspecified fall, initial encounter
CPT/HCPCS: 36415; 70450; 71045; 72100; 80053; 85025; 85610; 86140; 99284

== ENCOUNTER 2023-11-12 15:57 | Emergency (ER) | payer MEDICARE, OTHER ==
[2023-11-12 16:13] VITALS: PULSE 71
[2023-11-12 16:17] LABS: BASOPHILS PERCENT AUTO 0.5 % (0.2-1.2); EOSINOPHILS ABSOLUTE AUTO 0.1 x10^3/uL (0.0-0.5); EOSINOPHILS PERCENT AUTO 1.7 % (0.0-4.0); HEMOGLOBIN 13.6 g/dL (12.0-16.0); IMMATURE GRAN ABSOLUTE AUTO 0.02 x10^3/uL (0.00-0.07); LYMPHOCYTES ABSOLUTE AUTO 1.4 x10^3/uL (1.0-4.8); LYMPHOCYTES PERCENT AUTO 19.2 % (25.0-50.0); MEAN CORPUSCULAR HEMOGLOBIN 29.1 pg (26.0-32.0); MEAN CORPUSCULAR HGB CONC 31.6 g/dL (32.0-36.0); MEAN CORPUSCULAR VOLUME 91.9 fL (78.0-93.0); MONOCYTES ABSOLUTE AUTO 0.5 x10^3/uL (0.0-0.8); NEUTROPHILS ABSOLUTE AUTO 5.4 x10^3/uL (1.8-7.7); NEUTROPHILS PERCENT AUTO 72.3 % (50.0-80.0); PLATELET COUNT,PLT 256 x10^3/uL (130-400); RED BLOOD CELL COUNT 4.68 x10^6/uL (4.00-5.50); WHITE BLOOD CELL COUNT,WBC 7.5 x10^3/uL (4.0-10.0)
[2023-11-12 16:34] LABS: LACTIC ACID 0.6 mmol/L (0.4-2.0)
[2023-11-12 16:41] LABS: A/G RATIO 0.88; ALANINE AMINOTRANSFERASE,ALT 12 U/L (14-59); ALBUMIN 3.6 g/dL (3.4-5.0); ALKALINE PHOSPHATASE 102 U/L (46-116); ASPARTATE AMNIOTRANSFERASE,AST 12 U/L (15-37); BILIRUBIN TOTAL 0.6 mg/dL (0.2-1.0); BLOOD UREA NITROGEN,BUN 37 mg/dL (7-18); CALCIUM 9.5 mg/dL (8.5-10.1); CARBON DIOXIDE,CO2 33 mmol/L (21-32); CHLORIDE,CL 104 mmol/L (98-107); CREATININE 1.3 mg/dL (0.55-1.02); GLUCOSE RANDOM 90 mg/dL (70-99); POTASSIUM,K 4.3 mmol/L (3.5-5.1); PRO B-TYPE NATRIUR PEPT,BNPPRO 1098 pg/mL (<=450); PROTEIN TOTAL,TP 7.7 g/dL (6.4-8.2); SODIUM,NA 142 mmol/L (136-145)
[2023-11-12 16:42] LABS: ANION GAP 9.3 mmol/L (5-15); ESTIMATED GFR 42 mL/min (>=60)
[2023-11-12 16:59] LABS: CORONAVIRUS COVID-19 NAA NEGATIVE (NEGATIVE); INFLUENZA A NAA NEGATIVE (NEGATIVE); INFLUENZA B NAA NEGATIVE (NEGATIVE)
[2023-11-12 17:06] LABS: INR 1.1 (0.9-1.1); PROTHROMBIN TIME 11.9 SEC (9.5-12.2)
[2023-11-12 17:35] VITALS: BP 141/70
== END 2023-11-12 18:23 ==
LOC: VM.ED 15:57
DX: R41.82 Altered mental status, unspecified (principal); N17.9 Acute kidney failure, unspecified; I12.9 Hypertensive chronic kidney disease with stage 1 through stage 4 chronic kidney disease, or unspecified chronic kidney disease; N18.9 Chronic kidney disease, unspecified; E78.00 Pure hypercholesterolemia, unspecified; I25.810 Atherosclerosis of coronary artery bypass graft(s) without angina pectoris; I25.2 Old myocardial infarction; K21.9 Gastro-esophageal reflux disease without esophagitis; Z90.49 Acquired absence of other specified parts of digestive tract; Z79.899 Other long term (current) drug therapy; Z91.010 Allergy to peanuts; Z88.8 Allergy status to other drugs, medicaments and biological substances; Z88.2 Allergy status to sulfonamides; Z91.041 Radiographic dye allergy status; Z88.0 Allergy status to penicillin; Z91.048 Other nonmedicinal substance allergy status; Z88.5 Allergy status to narcotic agent; Z88.6 Allergy status to analgesic agent
CPT/HCPCS: 0240U; 36415; 70450; 71045; 80053; 83605; 83880; 84484; 85025; 85610; 99285

== ENCOUNTER 2024-02-26 04:44 | Emergency (ER) | payer MEDICARE, OTHER ==
[2024-02-26] MEDS ORDERED: Sodium Chloride 0.9% 10 ML Syringe FLUSH PRN (05:00)
[2024-02-26 05:28] LABS: BASOPHILS PERCENT AUTO 0.2 % (0.2-1.2); EOSINOPHILS ABSOLUTE AUTO 0.1 x10^3/uL (0.0-0.5); EOSINOPHILS PERCENT AUTO 1.7 % (0.0-4.0); HEMATOCRIT 42.4 % (33.0-47.0); HEMOGLOBIN 13.9 g/dL (12.0-16.0); IMMATURE GRAN ABSOLUTE AUTO 0.01 x10^3/uL (0.00-0.07); LYMPHOCYTES ABSOLUTE AUTO 1.3 x10^3/uL (1.0-4.8); MEAN CORPUSCULAR HEMOGLOBIN 31.4 pg (26.0-32.0); MEAN CORPUSCULAR HGB CONC 32.8 g/dL (32.0-36.0); MEAN CORPUSCULAR VOLUME 95.7 fL (78.0-93.0); MONOCYTES ABSOLUTE AUTO 0.7 x10^3/uL (0.0-0.8); MONOCYTES PERCENT AUTO 8.8 % (2.0-11.0); NEUTROPHILS ABSOLUTE AUTO 6.2 x10^3/uL (1.8-7.7); NEUTROPHILS PERCENT AUTO 74.2 % (50.0-80.0); PLATELET COUNT,PLT 296 x10^3/uL (130-400); RED BLOOD CELL COUNT 4.43 x10^6/uL (4.00-5.50); WHITE BLOOD CELL COUNT,WBC 8.4 x10^3/uL (4.0-10.0)
[2024-02-26] MEDS: methylPREDNISolone Sodium Succinate 125 MG/2 ML SDV IVPUSH ONE (05:39)
[2024-02-26 05:58] LABS: BLOOD UREA NITROGEN,BUN 19 mg/dL (7-18); CARBON DIOXIDE,CO2 30 mmol/L (21-32); CHLORIDE,CL 101 mmol/L (98-107); GLUCOSE RANDOM 99 mg/dL (70-99); POTASSIUM,K 4.2 mmol/L (3.5-5.1); SODIUM,NA 141 mmol/L (136-145)
[2024-02-26 05:59] LABS: A/G RATIO 0.72; ALANINE AMINOTRANSFERASE,ALT 9 U/L (14-59); ALBUMIN 3.1 g/dL (3.4-5.0); ALKALINE PHOSPHATASE 124 U/L (46-116); ASPARTATE AMNIOTRANSFERASE,AST 15 U/L (15-37); BILIRUBIN TOTAL 0.4 mg/dL (0.2-1.0); CALCIUM 9.2 mg/dL (8.5-10.1); PRO B-TYPE NATRIUR PEPT,BNPPRO 1029 pg/mL (<=450); PROTEIN TOTAL,TP 7.4 g/dL (6.4-8.2)
[2024-02-26 06:00] LABS: ANION GAP 14.2 mmol/L (5-15); ESTIMATED GFR 57 mL/min (>=60)
[2024-02-26 06:11] LABS: CORONAVIRUS COVID-19 NAA NEGATIVE (NEGATIVE); INFLUENZA A NAA NEGATIVE (NEGATIVE); INFLUENZA B NAA NEGATIVE (NEGATIVE)
[2024-02-26] MEDS: Furosemide 40 MG/4 ML VIAL IV ONE (07:42)
[2024-02-26 08:55] VITALS: BP 100/77; PULSE 67
== END 2024-02-26 07:53 ==
LOC: VM.ED 04:44
DX: I11.0 Hypertensive heart disease with heart failure (principal); I50.9 Heart failure, unspecified; I25.10 Atherosclerotic heart disease of native coronary artery without angina pectoris; E78.00 Pure hypercholesterolemia, unspecified; I25.2 Old myocardial infarction; K21.9 Gastro-esophageal reflux disease without esophagitis; Z95.1 Presence of aortocoronary bypass graft; E87.70 Fluid overload, unspecified; Z88.5 Allergy status to narcotic agent; Z91.018 Allergy to other foods; Z88.0 Allergy status to penicillin; Z88.6 Allergy status to analgesic agent; Z91.041 Radiographic dye allergy status; Z88.2 Allergy status to sulfonamides; Z91.048 Other nonmedicinal substance allergy status; Z79.899 Other long term (current) drug therapy; Z99.81 Dependence on supplemental oxygen
CPT/HCPCS: 0240U; 36415; 71045; 80053; 83605; 83880; 84484; 85025; 94760; 96374; 96375; 99285; J1940; J2930; 99284